=== PATIENT | female | born 1965 | race Caucasian/White ===

== ENCOUNTER 2022-11-30 11:23 | Outpatient (OUT) | payer OTHER, SELFPAY ==
[2022-11-30 12:08] LABS: Basophils Absolute Auto 0.1 10^3/uL (0.0-0.1); Basophils Percent Auto 1.2 % (0.2-2.0); Eosinophils Absolute Auto 0.1 10^3/uL (0.0-0.7); Eosinophils Percent Auto 2.8 % (0.9-7.0); Hematocrit 36.2 % (36.0-48.0); Hemoglobin 11.7 g/dL (12.0-16.0); Immature Granulocytes Abs Auto 0.01 10^3/uL (0.00-0.03); Immature Granulocytes Pct Auto 0.2 % (0.0-0.5); Lymphocytes Absolute Auto 1.4 10^3/uL (1.2-3.8); Lymphocytes Percent Auto 32.9 % (20.5-60.0); Mean Corpuscular HGB Conc 32.3 g/dL (29.9-35.2); Mean Corpuscular Hemoglobin 29.3 pg (26.7-34.0); Mean Corpuscular Volume 90.5 fL (81.0-99.0); Mean Platelet Volume 9.8 fL (9.5-13.5); Monocytes Absolute Auto 0.5 10^3/uL (0.3-0.8); Neutrophils Absolute Auto 2.2 10^3/uL (1.4-6.5); Neutrophils Percent Auto 50.9 % (43.0-75.0); Platelet Count 238 10^3/uL (150-450); Red Cell Distribution Width 14.1 % (11.0-15.0); White Blood Count 4.3 10^3/uL (4.0-11.0)
[2022-11-30 12:19] LABS: Estimated Average Glucose 111 mg/dL; Glycohemoglobin A1C 5.5 % (4.5-6.2)
[2022-11-30 12:57] LABS: Alanine Aminotransferase 15 U/L (14-59); Albumin Globulin Ratio 1.1; Albumin Level 3.8 g/dL (3.4-5.0); Alkaline Phosphatase 86 U/L (46-116); Anion Gap 11.6; Aspartate Amino Transferase 15 U/L (15-37); BUN Creatinine Ratio 16.1; Bilirubin Direct 0.1 mg/dL (0.0-0.2); Bilirubin Total 0.3 mg/dL (0.2-1.0); Carbon Dioxide 27.3 mmol/L (21.0-32.0); Chloride 99 mmol/L (98-107); Chol HDL Ratio 2.4; Cholesterol 187 mg/dL (<=200); Estimated GFR (African America >60 (>=60); Estimated GFR (Non-African Ame >60 (>=60); Globulin 3.5 g/dL; Glucose 102 mg/dL (74-106); HDL Cholesterol 78 mg/dL (40-60); Potassium 3.9 mmol/L (3.5-5.1); Sodium 134 mmol/L (136-145); Thyroid Stimulating Hormone 2.175 uIU/mL (0.358-3.740); Total Protein 7.3 g/dL (6.4-8.2); Triglycerides 87 mg/dL (<=150); VLDL CHOLESTEROL 17.4 mg/dL
== END 2022-11-30 11:24 | disposition home or self-care (01) ==
LOC: LAB 11:26
PROVIDERS: PCP Family Medicine; Visit Provider Family Medicine
DX: Z00.00 Encounter for general adult medical examination without abnormal findings (principal)
CPT/HCPCS: 36415; 80048; 80061; 80076; 83036; 84443; 85025

== ENCOUNTER 2023-02-21 09:16 | Outpatient (OUT) | payer OTHER, SELFPAY ==
--- NOTE | 2023-02-21 09:19 | MM_ITS ---
Patient: AMANDA OAKES Exam Date: 02/21/2023 : 1965 Gender:F Ordering : DR Eduardo Jones . Admission #: [id number] Family : Order #: [id number] CLICK HERE TO VIEW EXAM RADIOLOGY REPORT PROCEDURE: MM TOMOSYNTHESIS SCREENING BI COMPARISON: MG MAMM SCREEN 3D OCTAVIO CAD, 02/15/2022. MG MAMM SCREEN 3D OCTAVIO CAD, 02/12/2021. INDICATIONS: Screening Calculator Name NCI Breast Cancer Risk Assessment Tool 5 Year Breast Cancer Risk 1.00% Lifetime Breast Cancer Risk 5.50% Personal Breast Cancer No Personal Ovarian Cancer No Treatments None Family Cancers None LOCATION: [facility] BREAST COMPOSITION: Scattered areas fibroglandular density. FINDINGS: DIAGNOSTIC CATEGORY 1--NEGATIVE. NO CHANGE FROM COMPARISON ASSESSMENT. Scattered benign-appearing lymph nodes are present. RIGHT BREAST: No significant suspicious finding. LEFT BREAST: No significant suspicious finding. RECOMMENDATIONS: ROUTINE MAMMOGRAM AND CLINICAL EVALUATION IN 12 MONTHS. PLEASE NOTE: A NORMAL MAMMOGRAM DOES NOT EXCLUDE THE POSSIBILITY OF BREAST CANCER. A CLINICALLY SUSPICIOUS PALPABLE LUMP SHOULD BE BIOPSIED. Dictated by: Nas Robb MD on 02/21/2023 at 12:59 Approved by: Nas Robb MD on 02/21/2023 at 13:00
== END 2023-02-21 09:17 | disposition home or self-care (01) ==
LOC: MAMMO 09:16
PROVIDERS: PCP Family Medicine; Visit Provider Family Medicine
DX: Z12.31 Encounter for screening mammogram for malignant neoplasm of breast (principal)
CPT/HCPCS: 77063; 77067

== ENCOUNTER 2023-07-11 20:37 | Outpatient (REF) | payer OTHER, SELFPAY ==
[2023-07-15 11:10] LABS: Age Gdln ACOG Testing Note (.); HPV Aptima Negative (Negative); IGP, Aptima HPV, rfx 16/18,45 Note (.)
== END 2023-07-11 20:38 | disposition home or self-care (01) ==
LOC: LAB 20:37
PROVIDERS: PCP Family Medicine; Visit Provider Physician Assistant
DX: Z01.419 Encounter for gynecological examination (general) (routine) without abnormal findings (principal)
CPT/HCPCS: 87624; G0145

== ENCOUNTER 2023-07-14 09:36 | Outpatient (OUT) | payer OTHER, SELFPAY ==
--- NOTE | 2023-07-14 09:42 | XR_ITS ---
[facility] [place] [id number] Patient Name: AMANDA OAKES MRN: [id number] date: 1965 Sex: F Assigned Patient Location: [facility] Current Patient Location: [facility] Accession/Order Number: [id number] Exam Date: 07/14/2023 09:55 Report Date: 07/14/2023 10:13 At the request of: MATT ADAMS Procedure: XR DEXA axial skeleton EXAMINATION: XR DEXA axial skeleton HISTORY: postmenopausal state Z78.0 COMPARISON: No relevant comparison available. TECHNIQUE: Dual-energy X-ray absorptiometry (DXA) was performed. FINDINGS: SPINE ANALYSIS: Average bone mineral density is 1.031 g/cm2. T-score (standard deviation relative to young adult mean): -1.2 . HIP ANALYSIS: Lowest bone mineral density is within the left femoral neck, 0.771 g/cm2. T-score (standard deviation relative to young adult mean): -1.9 . XR/XR DEXA axial skeleton IMPRESSION: [employer] Classification: Osteopenia - Moderate Fracture Risk Electronically authenticated by: ALEAH LONDON Date: 07/14/2023 10:13
--- OUTSIDE RECORDS SUMMARY | 2023-07-14 09:45 | XMS_ITS | CCD ---
Author Name Unknown Address [address] [place] [address] Organization [facility] Care Team Providers Care Production Scheduler Name Role Phone STEVEN, DR JOSE Oconnell Admitting Unavailable NADERER, DR JOSE Oconnell Attending Unavailable NADERER, DR JOSE Oconnell Primary Care Unavailable Zieber, DR Chowdary Consulting Unavailable NADERER, DR JOSE Oconnell Consulting Unavailable NADERER, DR JOSE Oconnell Admitting Unavailable NADERER, DR JOSE Oconnell Attending Unavailable NADERER, DR JOSE Oconnell Primary Care Unavailable NADERER, DR JOSE Oconnell Consulting Unavailable NADERER, DR JOSE Oconnell Admitting Unavailable NADERER, DR JOSE Oconnell Attending Unavailable NADERER, DR JOSE Oconnell Primary Care Unavailable [place], DR Lovell Consulting Unavailable NADERER, DR JOSE Oconnell Consulting Unavailable BRANDAN, DR DOYLE Admitting Unavailable BRANDAN, DR DOYLE Attending Unavailable NADERER, DR JOSE Oconnell Primary Care Unavailable BRANDAN, DR DOYLE Consulting Unavailable NADERER, JOSE Primary Care Physician Pocubaldo, Nas Oconnell Admitting Unavailable Pocos, Nas Oconnell Referring Unavailable Pocos, Nas Oconnell Attending Unavailable Pocos, Nas Oconnell Referring Unavailable Pocos, Nas Oconnell Attending Unavailable Pocos, Nas Oconnell Admitting Unavailable ANGIE, MATT Attending Unavailable Allergies Allergy Classification Reported Allergen(s) Allergy Type Date of Onset Reaction(s) Facility (3 sources) Sulfamethoxazole / Trimethoprim; Translations: [sulfamethoxazole-tri methoprim] Drug Allergy Rash [facility] Medications Current Medications Medication Drug Class(es) Dates Sig (Normalized) Sig (Original) aspirin 81 mg delayed release oral tablet (1 source) Platelet Aggregation Inhibitor, Nonsteroidal Anti-inflammatory Drug Start: 08-17-2022 take 1 tablet by mouth twice daily aspirin 81 mg Oral EC Tab 81 mg = 1 tab(s), Oral, BID, # 60 tab(s), Refills(s) 0, Pharmacy: [facility], 158, cm, 07/29/22 12:08:00 EST, Height/Length Dosing, 58.6, kg, 07/29/22 12:08:00 EST, Weight Dosing Start Date: 08/17/22 Status: Ordered carvedilol 3.125 mg oral tablet (2 sources) alpha-Adrenergic Ciro, beta-Adrenergic Ciro Start: 07-29-2022 take 1 tablet by mouth twice daily carvedilol 3.125 mg Tab 3.125 mg = 1 tab(s), Oral, BID, Arrhythmia Start Date: 07/29/22 Status: Ordered cefadroxil 500 mg oral capsule (1 source) Cephalosporin Antibacterial Start: 08-17-2022 End: 08-19-2022 take 1 capsule by mouth every twelve hours cefadroxil 500 mg Cap 500 mg = 1 cap(s), Oral, q12hr, X 2 day(s), # 4 cap(s), Refills(s) 0, Pharmacy: [facility], 158, cm, 07/29/22 12:08:00 EST, Height/Length Dosing, 58.6, kg, 07/29/22 12:08:00 EST, Weight Dosing Start Date: 08/17/22 Stop Date: 08/19/22 Status: Ordered docusate sodium 100 mg oral capsule (1 source) Start: 08-17-2022 take 1 capsule by mouth twice daily as needed for constipation Colace 100 mg Cap 100 mg = 1 cap(s), Oral, BID, PRN for constipation, # 40 cap(s), Refills(s) 0, Pharmacy: [facility], 158, cm, 07/29/22 12:08:00 EST, Height/Length Dosing, 58.6, kg, 07/29/22 12:08:00 EST, Weight Dosing Start Date: 08/17/22 Status: Ordered meloxicam 15 mg oral tablet (2 sources) Nonsteroidal Anti-inflammatory Drug Start: 07-29-2022 take 1 tablet by mouth once daily meloxicam 15 mg Tab 15 mg = 1 tab(s), Oral, Daily, Pain Start Date: 07/29/22 Status: Ordered Multivitamin preparation (2 sources) Start: 07-29-2022 take 1 capsule by mouth once daily multivitamin 1 cap, Oral, Daily, Prophylaxis Start Date: 07/29/22 Status: Ordered oxyCODONE hydrochloride 5 mg oral tablet (1 source) Opioid Agonist Start: 08-17-2022 oxyCODONE 5 mg Tab 5 mg = 1 tab(s), Oral, As Directed, 1-2 po q4-6 hrs prn pain Dx: M16.11, Z96.641 Duration: 7days, # 40 tab(s), Refills(s) 0, Pharmacy: [facility], 158, cm, 07/29/22 12:08:00 EST, Height/Length Dosing, 58.6, kg, 07/29/22 12:08:00 ES... Start Date: 08/17/22 Status: Ordered Problems Active Problems Problem Classification Problem Date Documented Date Episodic/Chronic Cardiac dysrhythmias (2 sources) Cardiac arrhythmia 07-29-2022 Chronic Osteoarthritis (1 source) Unilateral primary osteoarthritis, right hip; Translations: [UNI PRIM OSTEOARTHRITIS RT HIP] Onset: 06-30-2022 Chronic Other non-traumatic joint disorders (4 sources) Pain in right hip; Translations: [PAIN IN RIGHT HIP] Onset: 06-28-2022 Episodic Past or Other Problems Problem Classification Problem Date Documented Date Episodic/Chronic Immunizations and screening for infectious disease (1 source) Encounter for screening for human papillomavirus (HPV); Translations: [ENC SCREENING HUMAN PAPILLOMAVIRUS] Onset: 03-23-2022 Episodic Other screening for suspected conditions (not mental disorders or infectious disease) (8 sources) Encounter for screening for malignant neoplasm of cervix; Translations: [Encounter for screening mammogram for malignant neoplasm of breast] Onset: 02-15-2022 Episodic Results Test Name Value Interpretation Reference Range Facility Operative Reporton Operative Report Patient: AMANDA OAKES Age: 57 years Sex: Female : 1965 Associated Diagnoses: None Author: Albaro Pink Jr, DO Postoperative Information Date/ Time: 08/17/2022 07:58:00 Preoperative Diagnosis: Acute postoperative pain.. Postoperative Diagnosis: Acute postoperative pain, per surgeon request. Procedure: Fascia iliaca nerve block. Anesthesia Method: Local, Monitored anesthesia care. Performed by: Albaro Pink Jr, DO Medications: Midazolam 2mg. Complications: None. Notes: The patient was interviewed and examined prior to the planned operation. Anesthesia options were discussed including fascia iliaca nerve block for postoperative analgesia. This discussion included a description of the procedure, risks and benefits, as well as alternatives to the block. The patients questions were addressed and the patient elected to proceed with the fascia iliaca nerve block. The patient was placed in the supine position and monitored with continuous pulse oximetry, non-invasive blood pressure, and electrocardiography. The upper thigh was prepped with ChloraPrep and sterilely draped. Anatomical landmarks were identified with ultrasonographic guidance. A 2 x 22 gauge Stimuplex needle was inserted without pain or paresthesias. . Following a negative attempted aspiration for blood, Ropivacaine 0.5% was slowly injected with to a total volume of _20_ cc. Periodic negative attempts at aspiration for blood were made as the local was injected. No pain or paresthesias were elicited with injection of the anesthetic. The patient tolerated the procedure well. The patient was then induced for general anesthesia and preparations for the proposed operation continued. Per surgeon request for post-op pian management.. [facility] Comment on above: Result Comment: Elec tronically Signed By: Albaro Pink Jr, DO\.br\Date and Time Signed: 08/21/22 09:09 EDT Progress Note-Physicianon Progress Note-Physician Patient: AMANDA OAKES Age: 57 years Sex: Female : 1965 Associated Diagnoses: None Author: Albaro Pink Jr, DO Postoperative Information Postoperative disposition: Postoperative disposition: To PACU. Optimetrix number: Optimetrix number [id number]. Anesthetic utilized: General. Health Status Allergies: Allergic Reactions (Selected) Severity Not Documented Bactrim- Rash. Physical Examination Vital Signs 08/17/2022 14:22 EDT Heart Rate Monitored 75 bpm SpO2 98 % 08/17/2022 14:21 EDT Systolic Blood Pressure 102 mmHg Diastolic Blood Pressure 70 mmHg Mean Arterial Pressure, Monitered 81 mmHg 08/17/2022 13:55 EDT Heart Rate Monitored 70 bpm Systolic Blood Pressure 100 mmHg Diastolic Blood Pressure 71 mmHg Blood Pressure Location Right arm Mean Arterial Pressure, Cuff 81 mmHg SpO2 99 % 08/17/2022 12:11 EDT Heart Rate Monitored 81 bpm SpO2 98 % 08/17/2022 12:11 EDT Respiratory Rate 16 br/min 08/17/2022 12:09 EDT Systolic Blood Pressure 91 mmHg Diastolic Blood Pressure 61 mmHg Mean Arterial Pressure, Monitered 71 mmHg 08/17/2022 12:09 EDT Temperature Temporal Artery 36.0 DegC LOW Pain Assessment: Controlled. General: Awake, Alert, Appropriate. Respiratory: Adequate air exchange. Cardiovascular: Stable, Normal peripheral perfusion. Neurological: Normal sensory function, Normal motor function. Assessment Anesthetic outcome No anesthetic complications noted. Adequate pain relief. able to void without difficulty, able to ambulate with assist, tolerating PO intake, no N/V. Review / Management Condition: Stable. Plan Transfer/Discharge: Transfer/Discharge Discharge when meets criteria ( To home ). [facility] Comment on above: Result Comment: Elec tronically Signed By: Albaro Pink Jr, DO\.br\Date and Time Signed: 08/21/22 09:10 EDT Progress Note-Physician Patient: AMANDA OAKES Age: 57 years Sex: Female : 1965 Associated Diagnoses: None Author: Albaro Pink Jr, DO Preoperative Information Time patient last ate or drank:=== (npo 8 hours) Anesthesia history: Patient history: No prior anesthesia problems. Re-evaluation prior to induction: Completed, Initial evaluation reviewed. Review of Systems Respiratory: No shortness of breath. Cardiovascular: No chest pain. Hematology/Lymphatic s: No bruising tendency, No bleeding tendency. Health Status Allergies: Allergic Reactions (All) Severity Not Documented Bactrim- Rash. Current medications: (Selected) Inpatient Medications Ordered Lactated Ringers IV Sepideh 1000 mL 1,000 mL: 1,000 mL, IV, 150 mL/hr, Routine, Start date 08/17/22 6:00:00 EDT, 6.7 hour(s), Total volume (mL): 1,000, 58.6 kg, 1.6, m2 Lactated Ringers IV Sepideh 1000 mL 1,000 mL: 1,000 mL, IV, 80 mL/hr, Routine, Start date 08/17/22 10:15:00 EDT, 12.5 hour(s), Total volume (mL): 1,000, 58.6 kg, 1.6, m2 Nozin 62% Bottle - POSTOP: 6 drop(s), Soln-Nasal, Nasal, BID, Routine, Start date 08/17/22 21:00:00 EDT Pantoprazole [address] Tab: 40 mg = 1 tab(s), Tab-DR, Oral, Daily, Routine, Start date 08/18/22 9:00:00 EDT, 08/17/22 10:15:00 EDT acetaminophen 325 mg Tab: 650 mg = 2 tab(s), Tab, Oral, q6hr for 3 dose(s), Stop date 08/18/22 4:59:00 EDT, Routine, Start date 08/17/22 11:00:00 EDT, 08/17/22 10:15:00 EDT ascorbic acid 500 mg Tab: 500 mg = 1 tab(s), Tab, Oral, BIDWM, Routine, Start date 08/17/22 17:00:00 EDT, 08/17/22 10:15:00 EDT bisacodyl 5 mg Oral EC Tab: 10 mg = 2 tab(s), Tab-EC, Oral, Once PRN Constipation, Routine, Start date 08/17/22 10:15:00 EDT, 08/17/22 10:15:00 EDT carvedilol 3.125 mg Tab: 3.125 mg = 1 tab(s), Tab, Oral, BID, Routine, Start date 08/17/22 21:00:00 EDT cefazolin additive + Sodium Chloride 0.9% intravenous solution 50 mL: 2 gram = 1 EA, IV Piggyback, q8hr for 2 dose(s), Stop date 08/18/22 2:59:00 EDT, Routine, Start date 08/17/22 11:00:00 EDT, 100 mL/hr, Infuse over 30 minute(s), 08/17/22 10:15:00 EDT cefazolin additive + Sodium Chloride 0.9% intravenous solution 50 mL: 2 gram = 1 EA, Powder-Inj, IV Piggyback, PREOP, Routine, Start date 08/17/22 6:00:00 EDT, 100 mL/hr, Infuse over 30 minute(s) docusate sodium 100 mg Cap: 100 mg = 1 cap(s), Cap, Oral, BID PRN Constipation, Routine, Start date 08/17/22 10:15:00 EDT, 08/17/22 10:15:00 EDT ferrous sulfate 325 mg Tab: 325 mg = 1 tab(s), Tab, Oral, BIDWM, Routine, Start date 08/17/22 17:00:00 EDT, 08/17/22 10:15:00 EDT magnesium hydroxide 8% Oral Susp 30 mL: 30 mL, Susp-Oral, Oral, BID PRN Constipation, Routine, Start date 08/17/22 10:15:00 EDT ondansetron 4 mg/2 mL Inj: 4 mg = 2 mL, Injection, IV Push, q6hr PRN Nausea/Vomiting, Routine, Start date 08/17/22 10:15:00 EDT, 08/17/22 10:15:00 EDT oxyCODONE 5 mg Tab: 10 mg = 2 tab(s), Tab, Oral, q4hr PRN Pain 8-10 for 5 day(s), Stop date 08/22/22 10:14:00 EDT, Routine, Start date 08/17/22 10:15:00 EDT, 08/17/22 10:15:00 EDT oxyCODONE 5 mg Tab: 5 mg = 1 tab(s), Tab, Oral, q4hr PRN Pain for 5 day(s), Stop date 08/22/22 10:14:00 EDT, Routine, Start date 08/17/22 10:15:00 EDT, 08/17/22 10:15:00 EDT Prescriptions Prescribed Colace 100 mg Cap: 100 mg = 1 cap(s), Oral, BID, PRN for constipation, # 40 cap(s), Refills(s) 0, Pharmacy: [facility], 158, cm, 07/29/22 12:08:00 EST, Height/Length Dosing, 58.6, kg, 07/29/22 12:08:00 EST, Weight Dosing aspirin 81 mg Oral EC Tab: 81 mg = 1 tab(s), Oral, BID, # 60 tab(s), Refills(s) 0, Pharmacy: [facility], 158, cm, 07/29/22 12:08:00 EST, Height/Length Dosing, 58.6, kg, 07/29/22 12:08:00 EST, Weight Dosing cefadroxil 500 mg Cap: 500 mg = 1 cap(s), Oral, q12hr, X 2 day(s), # 4 cap(s), Refills(s) 0, Pharmacy: [facility], 158, cm, 07/29/22 12:08:00 EST, Height/Length Dosing, 58.6, kg, 07/29/22 12:08:00 EST, Weight Dosing oxyCODONE 5 mg Tab: 5 mg = 1 tab(s), Oral, As Directed, 1-2 po q4-6 hrs prn pain Dx: M16.11, Z96.641 Duration: 7days, # 40 tab(s), Refills(s) 0, Pharmacy: [facility], 158, cm, 07/29/22 12:08:00 EST, Height/Length Dosing, 58.6, kg, 07/29/22 12:08:00 ES... Documented Medications Documented carvedilol 3.125 mg Tab: 3.125 mg = 1 tab(s), Oral, BID, Arrhythmia meloxicam 15 mg Tab: 15 mg = 1 tab(s), Oral, Daily, Pain multivitamin: 1 cap, Oral, Daily, Prophylaxis Problem list: All Problems Arrhythmia / SNOMED CT 4902093341 / Confirmed Histories Past Medical History: No active or resolved past medical history items have been selected or recorded. Family History: No family history items have been selected or recorded. Procedure history: delivery ([id number]). Operation on placenta to removal ([id number]). Social History Social & Psychosocial Habits Alcohol 07/29/2022 Risk Assessment: Low Risk 07/29/2022 Use: Current Type: Wine Frequency: 1-2 times per month Substance Ab (more content not included)... [facility] Comment on above: Result Comment: Elec tronically Signed By: Albaro Pink Jr, DO\.br\Date and Time Signed: 08/21/22 09:09 EDT IntraOperative Documentson 0 08-20-2022 IntraOperative Documents [id number] [facility] Coding Summary.on 08-19-2022 Coding Summary. CD:[id number] Ww+PGhlYWQ+UJ4SJIMhG 89kvBOcaL3xM9SCLUyDW ywgQVBQTElOSyIgbmFtZ L1rcYDzAPDc IC8+KW6qJVXtFokkzYXw h3X6sNZ0F59cuu5jAPuw eTK4RRCxPsNjiqree3af lQn8ZUvzKdvfMaEh RMWoxA29NCZ0cE00Gu88 yWAltRJqk6kyoCp6AiCa FMVpMPD5pAzbYNeic0Tp ZWLlL12rgVUop6C8 IGNvbGxhcHNlOyBlbXB0 cO4eSJxytxiqa1jppyyv Fsc4ke76lBJjh7S8qKV7 W5NmzkW1UZCyvGFm YordcXQYsF7ydrjbw3hp ejhyUsOlFKFeSXn1ZVq1 QBTpePfxOoVpCD23CSG0 DUUloaGtW7ZuBMZc fKrrFkF6o0U8Lb0EF7OW XexhX8KGCCIBBJbjyMV+ SB85sy94R9GsBnnqVkq3 AIXvEEA9uKA2xA6h GPChKOjeu4W5aBQ7Q3Bj bpRkcm1kj9czZJJjNGib W25dwACgc9B3OPEznUH5 PUXdyKagNxKeiG78 Oyc+JYQfcQcsr7EiNitw x9gfd7gcgWj5SevqYGSx hmTsmPdfEMR8p8LpNa9p FBVsgBF7sXK2lY2u JpQxYcJ4JUcbU249PtIw lJIuMvroT48yP3JzgIH+ ILEyYon0DDIahQlxNV3f H0WlTHIvxrtzeZAd mQscNQ2pNEAlnkgkKPWe zE4gDHReJ5u7YjJpKtM2 PDipT0NoDFDltqdsMm81 hL2mAhPlIyK2PTvx U5DqaiM3DQEyaQOeABdf HOW3H87sq8J3TKXaGUDi GRW4gQE2dQ3dwTxulrdy bGVmdDsgdmVydGlj PUhoXTsdY065AZOzvThx PkNvZGluZyBEYXRlOiAg MDMvMzAvMjAyMzwvdGQ+ GOSlOTM5eIhiKQVe zKZrSIodBz0svWvwpRby DO9dEXUnecdqHMFhvS0v FLUhhQWbxSetIF6jHNDw teugg188UmGpJHX7 DMIpsCBwK7RlzP1wPuNt DRLsYEUyL0YdgYVuLXgu Y939HBojXhI6NTDfgqVy U6OuISYjpCqoZgB6 i1E7Nd8Rc9HlflxfH8Fe mEQtSaAoOnldSQd1H7Wg PjwvdHI+PD70OGBqOC19 NAq3VYJ7pNimZWlj XPFpN8CioI8pWvIjODNj ZGRkOyc+PHRhYmxlIHdp ZHRoPScxMDAlJyBzdHls QN2pAn0gYFMjQFQa bApynLNuMeJgw8xtIAQu QLffSV5xfVucI2VsdLP5 RORht4h0Cb79S66dZ5Na dXA+OZKcyFN4zPH7 kZ4rUqGvGhU4LEzgK473 UwJpjDBgXuogt1xdj9wb kIj1HiZ7WCSplfUyfCli ACU2j8MkRd97E04e IHdpZHRoPSIxNSUiIHZh tWhhvb9vnI7pUe6+PGNv vNW4wSA1oA5rNePyQiW7 UWuiB649CsXxrYUj Dkxyy5rjc5oxdDw0JbAx JHMmqoGtvSdnHWX7y5Ug Dd44A1ZpnCvih5UvTey8 jx59nDSjg6E3fAZ7 J5StXAAyppsnaLZmqWbt UR6qARLlgyjuVDSvcR5k FTQlX0y4KhBgFxW6GMjm A2YkcvS7PTAnxIAy QEHdaAHKoI1wgamzo3ew ismaLsOfIVNyAGs0XXz3 ZSLmvZilTbOcQAB0IzD1 MYE0wAJzkA2peSbi eawxmV4pYez+TBX5yVFv eRUDEI5wIuurxRM+PHRk GOT2wDrbBYviSIBjhC0l VXCeP3g2HlObFhA5 DXkyT2CqybB7SQWixYRo XCKenMFVnK6vqttyq5bm jwojDxGhSGPxORk3QFb7 LWFsaWduOiBsZWZ0 DxS9JIO5fLYarL7pdUes crddlD5ySiy+QmlydGgg YSX6MFb2M9IyLcg5GUZk dKsmWT4tcWBpONim Kl3kcZbtoQtwIL8wXTTb ttvpf139RrErn9jiVLJp kYNvAKcuOPF2O96me1W2 EFNiQTGlAJY5bQD1 rY0qoNrlhcyyvVUnxQcs qiJiaVdfREzyOYpcN206 LVOoiKzbRqFvQCv1H8Rd Cca4GEIeeElmMA6w hUEuHOsvNg7kbJxelYdp OG8mFWXtbkkof291TdZy x0qgOJFdsDMiFAsgEVD5 Y02vj9I1PVYjUVOu QBM1oAW1gS7peGcrtode bGVmdDsgdmVydGljYWwt WCvlZ103GULzyLxyDkKl xAd8D9WjRpv4YSGq qPseGN0hzMXoWHsoAv2y xDplpCwvGY2xFNRqlqzy l314GrNnw2fxEYZbzZUd VCjcGZE7W76th7C8 UVEgPMBnLTY7mDG4wV0d bGlnbjogbGVmdDsgdmVy sKrpJVftRYaoB570VGUu cDsnPlBhdGllbnQg QRdaLCt0V0XhOzqbjCA+ RK51LIPcAX96tGPqcCQd n9yorDw7VdMrCOIcREX2 pPznAFwgr7OaMFFu Y75trVWar3W1SSXjfCid aRAnGqMlaAJ6kY0lDHkv pfthx2wdrmylKsqjh8wt bh94dF25O11oBSgt ZHRoPSIzMCUiIHZhbGln rg2nwZ1uGl0+PGNvbCB3 eVC2zJ4oWPRqZjO5NIak Q446RaFvpTCtEtqs w2gie1tgjBh1PeF5APFz dcFmkIwpEJE4k7JkYg68 I11jNYpyFEExZOAaZWJm NWUozCxftu0nuE2x Ii8+KHWefJF8eGD4yU4s OaDkYiC0SOeoB631TbPz gJSsRrvwF38gO9XdfFN+ IRVdHnr0TGUjlDus PV8nmRCxSPeyAi2tKVP7 KdNcTtLfSAemC0NoYMMt adqcxyajhQT0PWKqPIHf dZ79Wr5mcHqmNRRz bHRKqS8yhwvod8yigxwy UmKzRSEpDRx6PUt2JYYf oJtfZgQuPUB4WiL6IMW6 fMTkkY8qmQtoywei jW0iL6AoRVAvdkvyTz28 nK5sKaOtPtC2REddJyu+ Q3YGY8QKAZOOKdOUZXg3 S2KhCmx1ONHdkRuf NV4rlXVuEFioGk9qhYnu bIyaZA5pKYPjfmsiNWOw bL5sZPVvsPSphSxoUX3k YCDwmqdox734ZrUj QSC0SMGziNFmO6LlmA0k KcIqDJOdLJKeJ6AxiQZw CQmxH954VWnyCoS7EFJm hzFeV8YuGMSxyIdc XwG1o1T5Qg1pAK6lMN3i ECP2SO77ND94sPCqr7Z9 uLP8X5TgPZUpckuuycbi tFJ0IYArSKAcbL27 yDDaNBbfZp8pg0B5y539 BLAvNCKntX45Hp4qnSkq DZMynZZOsH5erfwds4rr cjogIzAwMDAwMDt0 WWk1XODqhWhkLzChWYN0 LoH7ZIO5eYAldU5oiOhm qkxpuQ2lCoi+NTggWWVh oqU7K6NeZhi8BEHn cGsmER2tmXPnMSfwNp8g zHywfWgeQJ5fPXWchbpc PPBpeM8pPVTlgETtcAsm QD1qARBzvkiju533 OrEmMGM5EDCkqJAvC5Tb bP9kVvUjZGZpNEKzO3Aj aLCzLVswX437XEbtMiD6 YTTnybGtR5FvXMSp sVkuEtS1n0O1Px3AFL9x wHB9A6UgVnz7RWQnlDlm AM7sqVDlWOiiNb1teFpz gWgxOM7qJSQrhcnk WOCwlA3lOAFlaSQpbGvj DY4dDRUfhbqhe714WmUa BIX9GSKjhFSdB9JkoT1f KvXyBPIgZPKbE2Vy nLOgMJdoM721EHmqCmZ3 EMEyksWyM7QbVPBazJcq MsD6r9O0Ch1CcOB8xHI2 n4Q5N5IyzGHsCHU8 HPM6xjerkxq8N0RuAeci dHI+LH97SNMmJD65kQTq wQHpc7axrRf8LwSgRYYv WYY4fWqhYTeua2Sq DOYpL59nrXAbr0C9TSKz rGcvoLUmGkSsbFU8qV5j OSnhmzfnp2memrzwUdol l3ovrd04gO48E56g IHdpZHRoPSIzMCUiIHZh pSpwlm8fzH7tOa4+PGNv aBD4lSI8tL9vHpMwBfE3 YExeS437EtHedXEs Wqvqe5wjm3mteVu0KrRh KNMnqjEbzZdrQMJ4d4Li Ml01V94mVNauUHGkBIAw HWDjFQBptXiwvi8z nU2vAt8+BM5pn0oscr17 gV72xYW+RQEsXVX1jGkh TZtgRPWpmV9uLJxoJaT7 OISkYgMeoC63oIGi MWqcCr6xaEeqaAhaLO8g SMBvyuwqx637HpWvt2yk YRTuzYEhYVuwJBP5Q19j c2P2NMNoGQRxOFL1 dOT5tZ0sePxsjfinxHLf dDsgdmVydGljYWwtYWxp P921ZNKypRnmSvZunDYo D5njrnFBCG9oEmgq dGQ+HITiCXY8sWxbNLsc ZYEeeA3dOLQfR6w9HvNr DtE3RNabL9BlshM1KOHy iRNiVSTrlKKVkQ6o fqzys5hsqskuWyZlNGNn VWn5DNp7JIXqzVcpKwXb ZPC0InP7ONX8cKKboK5t sUphpzwmmK3vUpu+ RklOOjwvdGQ+PHRkIHN0 dLuxSPluWQZrtN1nGIWd C1s5YwDfLzM6GEqsF2Pl slM5UBJtgPJnLEIg lPKVrI8vmszfm6jpifdw StUjGWFrBNx3TWp1KTPi eZkqXcLkWRT6WmJ5SHP7 vYFeuQ8niJoxagif wK1eZnw+TVJOOjwvdGQ+ FPPqWYQ4xJbgZAgrJSCz cX0nHACpR4f5BrArKxN9 YRtaZ7EjvbG7SZRn aBLzBNSwxTNLpY7mraek k0uauoszBaCjMPErXLh1 NUm8LQBlaHquFmGtAWV6 DuK6OIO2hWEieC8b yGhmikdciM6gMrc+UGF5 EGN6KK52TI03Y0WdMjwu dGFibGU+PHRhYmxlIHdp ZHRoPScxMDAlJyBz eAfuGP7c (more content not included)... [facility] Main OR Intraoperative Recor don 08-19-2022 Main OR Intraoperative Record IntraOp Document Type FT Summary Primary Physician: Nas Hebert DO Finalized Date/Time: 08/19/22 10:54:53 Pt. Name: MEG OAKESY /Sex: 1965 Female Med Rec #: [id number] Physician: Nas Hebert DO Financial #: [id number] Pt. Type: A Room/Bed: Admit/Disch: 08/17/22 05:40:33 - 08/17/22 15:55:00 Institution: Case Times FT Entry 1 Patient Times In Room 08/17/22 08:42:00 Out Room 08/17/22 11:20:00 Procedure Times Start 08/17/22 09:21:00 Stop 08/17/22 11:15:00 Anesthesia Times Start 08/17/22 08:42:00 Stop 08/17/22 11:20:00 Block Timeout w08/17/22 07:58:00 Anesthesia Last Modified By: Екатерина GREGORIO, [facility] 08/17/22 11:41:54 General Comments: Unilateral right hip nerve block done by Dr. Pink at [id number] with JG Pierre assisting, HR 66bpm, SpO2 99% on room air, wheeled back to ASU at 0815, verbal reports given to ASU RN. JG Verde Wheeled to OR room, assisted to self-sitting position, spinal done by OLIVIER Clarke at 0851, position back to supine and to the fracture table for surgery. JG Verde 08/19/22 Chart opened to review and send charges [facility] Case Attendance FT Entry 1 Entry 2 Entry 3 Case Attendee Lis AGUAYO, Darell Hebert DO, Nas Roy RN, Beth Velasquez Role Performed REGIONAL ACCOUNT DIRECTOR Surgeon - Primary Staff - Other Time In 08/17/22 08:42:00 08/17/22 08:42:00 08/17/22 08:42:00 Time Out 08/17/22 11:20:00 08/17/22 11:02:00 08/17/22 11:20:00 Procedure HIP TOTAL ANTERIOR HIP TOTAL ANTERIOR HIP TOTAL ANTERIOR ROBOT ROBOT ROBOT ARTHROPLASTY(Right) ARTHROPLASTY(Right) ARTHROPLASTY(Right) Comments Dr. Pink supervising 2nd scrub Last Modified By: Екатерина RN, Dash Willams RN, Dash Dukes RN 08/17/22 11:41:57 08/17/22 11:41:57 08/17/22 11:41:57 Entry 4 Entry 5 Entry 6 Case Attendee Екатерина RN, Dash Arrington RN, Adam Hedrick Role Performed Verifying Specialist - Primary Verifying Specialist - Primary Scrub - Primary Time In 08/17/22 09:05:00 08/17/22 08:42:00 08/17/22 08:42:00 Time Out 08/17/22 11:20:00 08/17/22 11:20:00 08/17/22 11:20:00 Procedure HIP TOTAL ANTERIOR HIP TOTAL ANTERIOR HIP TOTAL ANTERIOR ROBOT ROBOT ROBOT ARTHROPLASTY(Right) ARTHROPLASTY(Right) ARTHROPLASTY(Right) Comments Last Modified By: Екатерина RN, Dash Willams RN, Dash Dukes RN 08/17/22 11:41:57 08/17/22 11:41:57 08/17/22 11:41:57 Entry 7 Entry 8 Entry 9 Case Attendee Gregg RN, Byron Marrero SAMPLE COORDINATOR, Stacia Lane RN, Sun Oconnell Role Performed Staff - Other SAMPLE COORDINATOR/SA Staff - Other Time In 08/17/22 08:42:00 08/17/22 08:42:00 08/17/22 08:42:00 Time Out 08/17/22 11:20:00 08/17/22 11:20:00 08/17/22 09:10:00 Procedure HIP TOTAL ANTERIOR HIP TOTAL ANTERIOR HIP TOTAL ANTERIOR ROBOT ROBOT ROBOT ARTHROPLASTY(Right) ARTHROPLASTY(Right) ARTHROPLASTY(Right) Comments 3rd scrub RN assisting with the blocks and positioning Last Modified By: Екатерина RN, Dash Willams RN, Dash Willams RN, Dash Oconnell 08/17/22 11:41:57 08/17/22 11:41:57 08/17/22 11:41:57 Entry 10 Entry 11 Case Attendee Michelle Ro Chelsea R Role Performed Metal Hanger Metal Hanger Time In 08/17/22 08:50:00 08/17/22 10:29:00 Time Out 08/17/22 09:20:00 08/17/22 10:49:00 Procedure HIP TOTAL ANTERIOR HIP TOTAL ANTERIOR ROBOT ROBOT ARTHROPLASTY(Right) ARTHROPLASTY(Right) Comments Last Modified By: Екатерина RN, Dash Willams RN, Dash Oconnell 08/17/22 11:41:57 08/17/22 11:41:57 General Comments: Kelechi Hand and Eve rowell, also in attendance. JG Verdelinux admin Protocols FT Pre-Care Text: Implements protective measures prior to operative or invasive procedure, confirms identity before the operative or invasive procedure, verifies operative procedure, surgical site, and laterality Entry 1 Procedure(s) HIP TOTAL ANTERIOR Patient Identity Birthday, Blood Band, ROBOT Verified (select at ID Band Check, Patient ARTHROPLASTY(Right) least 2): Participation Consents / H and P Anesthesia Consent, Operative Site Present Verified HandP, Surgery/Procedure Marking Verified Consent, Transfusion Consent Surgical Site Yes Laterality Verified Yes Verified Procedure Verified Yes Correct Patient Yes Position Verified Availability Equipment, Implant, Prep Dry Yes Verified (If Medication, X-ray Applicable) PreOp Antibiotic Yes Time Out Darell Hays CRNA, Pocos DO, David A, Hord RN, Екатерина Campos RN, Murphy Tan RN, Ellen Aguila Kendall R, Krupp RN, Rupal Michele CST, Stacia Myers Time Out Complete 08/17/22 08:20:00 Outcomes Met? Yes Last Modified By: Dash Willams RN 08/17/22 09:52:02 Post-Care Text: The patient is free from signs and symptoms of injury caused by extraneous objects Allergy Information FT Pre-Care Text: Verifies allergies Entry 1 Allergies Reviewed? Yes Allergies Reviewed Self/Patient With Outcomes Met? Yes (more content not included)... [facility] [place] 08-18-2022 Blood Bank [place]ip [id number] #[id number] [facility] Consent for Anesthesiaon Consent for Anesthesia [id number] 2#1.00CD:127 [facility] Discharge Instructionson Discharge Instructions [id number] 8#1.00CD:127 [facility] IntraOperative Documentson 0 08-18-2022 IntraOperative Documents [id number] 4#1.00CD:127 [facility] IntraOperative Documents [id number] 0#1.00CD:127 [facility] Operative Reporton Operative Report SURGERY DATE: 08/17/2022 WHEEL ASSEMBLER: Stacia Marrero CST PREOPERATIVE DIAGNOSIS: Right hip osteoarthritis POSTOPERATIVE DIAGNOSIS: Right hip osteoarthritis OPERATION: Right hip robotic-assist total hip arthroplasty ANESTHESIA: Spinal/fascia iliaca block ANESTHESIOLOGIST: Darell Hays CRNA ESTIMATED BLOOD LOSS: 250 mL INTRAVENOUS FLUIDS/URINARY OUTPUT: Please see operative record SPECIMEN: Bone and soft tissue IMPLANT: Eve Total Hip with a size 50 Trident II Cluster cup; two 6.5 mm screws measuring 25 and 20 mm respectively; a 50 x 32 neutral X3 polyethylene liner; on the femoral side, a size 3 127-degree Accolade II with a 32 +4 Biolox femoral head HISTORY/OPERATIVE INDICATIONS: The patient is a 57-year-old white female who presents complaining of right hip pain and difficulty. The patient has had the usual course of conservative care including oral anti-inflammation, analgesia with Tylenol, supportive care and rest with the use of an assistive device as needed. The patient has failed this. With this and how the pain does effect quality of life, the patient does appear clinically indicated/cost effective for total hip arthroplasty. INTRAOPERATIVE PATHOLOGY: Upon dissection of the right hip from the standard direct anterior approach, there is noted to be severe arthrosis. Total hip arthroplasty is done with christianity of limb stability, alignment and length. The patient did tolerate the procedure well under spinal anesthetic. The [employer] robotic platform was helpful. The fascia iliaca block is requested per myself to aid in intra, perioperative, postoperative pain management. It does appear to be clinically indicated/cost effective. PROCEDURE: After informed consent is obtained the risks, complications and reasonable expectations of the procedure had been discussed. The patient is taken to the Operative Suite, placed on the operating room table in supine position. At this point, the patient is given a spinal anesthetic. A time-out procedure is performed, site verification verified. The patient is then appropriately positioned on the Braxton table. The boots are placed in the standard fashion to secure the patient to the table. After adequate positioning, the operative side arm is folded over the chest to allow access with the robotic platform. After adequate positioning, the hips are sterilely prepped and draped in the usual surgical fashion. This does include the contralateral anterior hip area up into the pelvic area. After sterile prep and drape, the focus is then to the array placement on the contralateral right hip. A total of three stab incisions are made at the appropriate level using the guide. The pins are placed; first the first and third pins followed by the second pin in line. The guide for the array is then placed overtop, secured and the array identified by the camera. At this point, the focus is to the operative hip. The direct anterior approach is utilized. Skin incision is made. The tensor fascia is split. Dissection is carried then medialward. The cross vasculature of the ascending branches are then identified and cauterized. This did expose the pre-capsular fat. The capsule layer is identified. A minimal amount of the reflected head of the rectus femoris is elevated. At this point, the capsule is opened longitudinally and then at the inferior aspect in a T fashion, the limbs of the capsule are excised. The superior limb is marked with a suture for later excision. The femoral neck is exposed. The approximate site of cut is appropriately made. At this point, the pubofemoral ligament is released as well for ease of exposure. The femoral checkpoint is placed in the greater trochanteric area. At this point, the hip is externally rotated approximately 20 degrees and traction applied. The corkscrew for head removal is placed within the femoral head. The femoral neck cut is made. The head is removed. The acetabulum is then exposed. The acetabular labrum, capsule are further removed. After adequate exposure of the acetabulum, the pelvic checkpoint is placed. The femoral checkpoint had been registered. The pelvic checkpoint is thus registered followed by registering of the pelvic array. This is then registered with fine articular points followed by fine rim points. The gross points are then identified and verified. This does include the anterior inferior aspects of the acetabulum for verification. At this point, the reamer is brought in. This is appropriately set and the reaming is performed in the standard fashion. Adequate reaming is achieved. The area is thoroughly irrigated. The decision on the cup is made. At this point, the 50 cup is placed on the robotic arm and impacted with the guidance accordingly. Adequate positioning is verified. The drill holes are drilled, measured for length and two 6.5 mm screws were placed measuring 25 and 20 mm respectively. At this point, the hip is externally rotated 90 degrees and the capsular releases are performed for a femoral janis (more content not included)... [facility] Comment on above: Result Comment: Elec tronically Signed By: Nas Hebert DO\raciel\Date and Time Signed: 08/18/22 07:04 EDT Preoperative Documentson Preoperative Documents [id number] 2#1.00CD:127 [facility] XR Hip 1 View Right + Pelvis on 08-18-2022 XR Hip 1 View Right + Pelvis Exam Date/Time: 08/17/2022 11:38 EDT Reason for Exam: Post Op Report EXAMINATION: XR Hip 1 View Right + Pelvis, 08/17/2022 11:25 AM CLINICAL HISTORY: Post Op TECHNIQUE: PA and lateral views COMPARISON: Hip x-rays from 06/28/2022 FINDINGS: Status post complete right hip replacement. The prostheses are in anatomic alignment. Expected postoperative soft tissue edema and subcutaneous air are noted. IMPRESSION: Status post complete right hip replacement. Ordering Provider: Nas Hebert FINAL REPORT Dictated: 08/18/2022 4:32 pm Juventino Wiseman MD, V. Signed (Electronic Signature): 08/18/2022 4:32 pm Signed by: Juventino Wiseman MD, V. Transcribed by: ANSHU Technologist: SAKINA Technical Comments Radiation Dose: Ka,r in mGy = na DAP = na [facility] ABO/Rhon 08-17-2022 ABO/Rh Negative Invalid [facility] Comment on above: Performed By: #### 2 [id number], [id number], [id number], [id number] ####[facility] [address] [place] [address] ABO/Rh History Checkon 08-17 ABO/Rh History Check Verified Hx Blood Type [facility] Comment on above: Performed By: #### 2 [id number], [id number], [id number] ####[facility] [address] [place] [address] ABSCon 08-17-2022 ABSC Gel Interp Negative Normal [facility] Comment on above: Performed By: #### 2 [id number], [id number], [id number], [id number] ####[facility] [address] [place] [address] BLOOD BANKOrdered By: Denver Wren on 08-17-2022 ABO/Rh Interp Negative Invalid Interpretation Code [facility] [place] Subsection ABSC Gel Interp Negative (08/17/22 6:30 AM) Normal [facility] [place] Sub[place] Blood Bank ID#on 08-17-2022 BBID# [id number] Invalid Interpretation Code [facility] Comment on above: Performed By: #### 2 [id number], [id number], [id number], [id number] ####[facility] [address] [place] [address] Consent for Treatmenton 07-22 Consent for Treatment [id number] #1.00CD:127 [facility] H&P Updateon 08-17-2022 H&P Update [id number] #1.00CD:127 [facility] H&P Update [id number] #1.00CD:127 [facility] Comment on above: Other Comment: NEED A GOLD FORM Inpatient Patient Summaryon 08-17-2022 Inpatient Patient Summary [facility] [address] [place], [place] [address] [facility] Clinical Discharge Instructions PERSON INFORMATION Name: AMANDA OAKES PHYSICIANS Admitting Physician: Nas Hebert DO Attending Physician: Nas Hebert DO PCP: STEVEN CHAVARRIA, JOSE Discharge Diagnosis: Comment: PATIENT EDUCATION INFORMATION Instructions: How to Use an Incentive Spirometer; Post Op Patient Instructions - FT (CUSTOM); [place] - Hip Replacement Arthroplasty, Revised 07/14/11. (Custom) Medication Leaflets: Follow up: With: Address: When: Nas Hebert [address] [place] [address] [facility] (1) 09/17/2022 8:30 AM Comments: Call for any problems. Keep scheduled appointment MEDICATION LIST New Medic[facility]72, [address] [place], [place] [id number], [phone] aspirin (aspirin 81 mg Oral EC Tab) 1 Tablets By Mouth 2 times a day. Refills: 0. cefadroxil (cefadroxil 500 mg Cap) 1 Capsules By Mouth every 12 hours for 2 Days. Refills: 0. docusate (Colace 100 mg Cap) 1 Capsules By Mouth 2 times a day as needed for constipation. Refills: 0. oxycodone (oxyCODONE 5 mg Tab) 1 Tablets By Mouth As Directed. 1-2 po q4-6 hrs prn pain Dx: M16.11, Z96.641 Duration: 7days. Refills: 0. Medications to Continue with No Changes Other Medications carvedilol (carvedilol 3.125 mg Tab) 1 Tablets By Mouth 2 times a day. Arrhythmia. meloxicam (meloxicam 15 mg Tab) 1 Tablets By Mouth every day. multivitamin 1 cap By Mouth every day. Comment: Epifanio Karri [facility] Main OR PACU I Recordon 07-22 Main OR PACU I Record PACU Phase I Document Type FT Summary Primary Physician: Nas Hebert DO Finalized Date/Time: 08/17/22 13:06:58 Pt. Name: MEG OAKESRoyce Sullivan/Sex: 1965 Female Med Rec #: [id number] Physician: Nas Hebert DO Financial #: [id number] Pt. Type: A Room/Bed: 09/20 Admit/Disch: 08/17/22 05:40:33 - Institution: Case Times PACU I FT Pre-Care Text: Identifies barriers to communication and implements measures to provide psychological support Develops individualized plan of care, and ensures continuity of care Maintains patient's dignity and privacy, and maintains patient confidentiality Identifies and reports philosophical, cultural, and spiritual beliefs and values Identifies individual values and wishes concerning care Implements aseptic technique, and administers prescribed antibiotic therapy and immunizing agents as ordered Evaluates postoperative tissue perfusion Implements thermoregulation measures, and monitors body temperature Evaluates postoperative respiratory status Evaluates postoperative cardiac status Evaluates postoperative neurological status Assesses pain control, collaborated in initiating patient-controlled analgesia and implements alternative methods of pain control Verifies allergies, administers prescribed medications and solutions, evaluates response to medications Entry 1 In PACU I 08/17/22 11:24:00 Discharge from PACU 08/17/22 12:05:00 I Outcomes Met? Yes Last Modified By: Leni Clark RN 08/17/22 13:06:39 Post-Care Text: The patient demonstrates knowledge of the expected response to the operative or invasive procedure The patient's care is consistent with the individualized perioperative plan of care The patient's right to privacy is maintained The patient's value system, lifestyle, ethnicity, and culture are considered, respected, and incorporated into the perioperative plan of care The patient participates in decisions affecting his or her perioperative plan of care The patient is free from signs and symptoms of infection The patient has wound/tissue perfusion consistent with or improved from baseline levels established preoperatively The patient is at or returning to normothermia at the conclusion of the immediate postoperative period The patient's respiratory function is consistent with or improved from baseline levels established preoperatively The patient's cardiovascular status is consistent with or improved from baseline levels established preoperatively The patient's cardiovascular status is consistent with or improved from baseline levels established preoperatively The patient demonstrates and/or reports adequate pain control throughout the perioperative period The patient received appropriate medication(s), safely administered during the perioperative period Acuity Level PACU I FT Entry 1 Start Time 08/17/22 11:24:00 Stop Time 08/17/22 12:05:00 Acuity Level Acuity Level I Last Modified By: Leni Clark RN 08/17/22 13:06:53 Finalized By: Leni Clark RN Document Signatures Signed By: Leni Clark RN 08/17/22 13:06 [facility] Main OR Preoperative Recordo n 08-17-2022 Main OR Preoperative Record PreOp Document Type FT Summary Primary Physician: Nas Hebert DO Finalized Date/Time: 08/17/22 10:03:41 Pt. Name: VIOLETTE AMANDA Sullivan/Sex: 1965 Female Med Rec #: [id number] Physician: Nas Hebert DO Financial #: [id number] Pt. Type: A Room/Bed: [facility] Admit/Disch: 08/17/22 05:40:33 - Institution: Case Times PreOp FT Pre-Care Text: Verifies consent for planned procedure, identifies individual values and wishes concerning care, includes family members in perioperative teaching Entry 1 Patient Times. In Pre Surgery 08/17/22 05:55:00 Out Pre Surgery 08/17/22 08:40:00 Outcomes Met? Yes Last Modified By: Dash Willams RN 08/17/22 10:03:40 Post-Care Text: The patient participates in decisions affecting his or her perioperative plan of care Finalized By: Dash Willams RN Document Signatures Signed By: Dash Willams RN 08/17/22 10:03 [facility] Monitor Recordon 08-17-2022 Monitor Record [id number] 0#1.00CD:127 [facility] Monitor Record [id number] 8#1.00CD:127 [facility] Outpatient Surgery Discharge Instructionon 08-17-2022 Outpatient Surgery Discharge Instruction [facility] [address], [place] [address] Patient Discharge Instructions PERSON INFORMATION Name: AMANDA OAKES Date of : 1965 Current Date: 08/17/2022 09:28:15 PHYSICIANS Admitting Physician: Nas Hebert DO Discharge Diagnosis: AMANDA OAKES has been given the following list of follow-up instructions, prescriptions, and patient education materials: IF UNABLE TO CONTACT YOUR PHYSICIAN AND YOU FEEL IT IS AN EMERGENCY, GO TO THE NEAREST EMERGENCY ROOM OR CALL 911 Rosina, AMANDA OAKES, have received the attached patient education materials/instructio ns and have verbalized understanding: May we do a follow up call? Yes No I was present when discharge instructions were given Patient Signature Date Clinican/Nurse Signature Date Follow up: With: Address: When: Nas Hebert [address] [place], [place] [id number] Business (1) 09/17/2022 8:30 AM Comments: Call for any problems. Keep scheduled appointment Pharmacy Information: You may receive a survey from [employer] asking you to rate your care experience. Your feedback is important and will help us understand what we do well and how we can improve the quality of care we provide to you, your loved ones and our community. It?s an honor to serve you. Thank you for choosing [facility] HERE ARE THE MEDICATION CHANGES THAT OCCURRED DURING YOUR HOSPITAL STAY New Medic[facility], [address] [place], [place] [id number], [phone] aspirin (aspirin 81 mg Oral EC Tab) 1 Tablets By Mouth 2 times a day. Refills: 0. cefadroxil (cefadroxil 500 mg Cap) 1 Capsules By Mouth every 12 hours for 2 Days. Refills: 0. docusate (Colace 100 mg Cap) 1 Capsules By Mouth 2 times a day as needed for constipation. Refills: 0. oxycodone (oxyCODONE 5 mg Tab) 1 Tablets By Mouth As Directed. 1-2 po q4-6 hrs prn pain Dx: M16.11, Z96.641 Duration: 7days. Refills: 0. Medications to Continue with No Changes Other Medications carvedilol (carvedilol 3.125 mg Tab) 1 Tablets By Mouth 2 times a day. Arrhythmia. meloxicam (meloxicam 15 mg Tab) 1 Tablets By Mouth every day. multivitamin 1 cap By Mouth every day. PATIENT EDUCATION INFORMATION Instructions: How To Use an Incentive Spirometer An incentive spirometer is a tool that measures how well you are filling your lungs with each breath. Learning to take long, deep breaths using this tool can help you keep your lungs clear and active. This may help to reverse or lessen your chance of developing breathing (pulmonary) problems, especially infection. You may be asked to use a spirometer: ? After a surgery. ? If you have a lung problem or a history of smoking. ? After a long period of time when you have been unable to move or be active. If the spirometer includes an indicator to show the highest number that you have reached, your health care provider or respiratory therapist will help you set a goal. Keep a list (log) of your progress as told by your health care provider. What are the risks? ? Breathing too quickly may cause dizziness or cause you to pass out. Take your time so you do not get dizzy or light-headed. ? If you are in pain, you may need to take pain medicine before doing incentive spirometry. It is harder to take a deep breath if you are having pain. How to use your incentive spirometer 1. Sit up on the edge of your bed or on a chair. 2. Hold the incentive spirometer so that it is in an upright position. 3. Before you use the spirometer, breathe out normally. 4. Place the mouthpiece in your mouth. Make sure your lips are closed tightly around it. 5. Breathe in slowly and as deeply as you can through your mouth, causing the piston or the ball to rise toward the top of the chamber. 6. Hold your breath for 3?5 seconds, or for as long as possible. ? If the spirometer includes a coach driver indicator, use this to guide you in breathing. Slow down your breathing if the indicator goes above the marked areas. 7. Remove the mouthpiece from your mouth and breathe out normally. The piston or ball will return to the bottom of the chamber. 8. Rest for a few seconds, then repeat the steps 10 or more times. ? Take your time and take a few normal breaths between deep breaths so that you do not get dizzy or light-headed. ? Do this every 1?2 hours when you are awake. 9. If the spirometer includes a goal marker to show the highest number you have reached (best effort), use this as a goal to work toward during each repet (more content not included)... [facility] Outside Recordson 08-17-2022 Outside Records [id number] #1.00CD:127 [facility] Patient Education - Texton 0 08-17-2022 Patient Education - Text Pulmonary Medicine How To Use an Incentive Spirometer An incentive spirometer is a tool that measures how well you are filling your lungs with each breath. Learning to take long, deep breaths using this tool can help you keep your lungs clear and active. This may help to reverse or lessen your chance of developing breathing (pulmonary) problems, especially infection. You may be asked to use a spirometer: ? After a surgery. ? If you have a lung problem or a history of smoking. ? After a long period of time when you have been unable to move or be active. If the spirometer includes an indicator to show the highest number that you have reached, your health care provider or respiratory therapist will help you set a goal. Keep a list (log) of your progress as told by your health care provider. What are the risks? ? Breathing too quickly may cause dizziness or cause you to pass out. Take your time so you do not get dizzy or light-headed. ? If you are in pain, you may need to take pain medicine before doing incentive spirometry. It is harder to take a deep breath if you are having pain. How to use your incentive spirometer 1. Sit up on the edge of your bed or on a chair. 2. Hold the incentive spirometer so that it is in an upright position. 3. Before you use the spirometer, breathe out normally. 4. Place the mouthpiece in your mouth. Make sure your lips are closed tightly around it. 5. Breathe in slowly and as deeply as you can through your mouth, causing the piston or the ball to rise toward the top of the chamber. 6. Hold your breath for 3?5 seconds, or for as long as possible. ? If the spirometer includes a coach driver indicator, use this to guide you in breathing. Slow down your breathing if the indicator goes above the marked areas. 7. Remove the mouthpiece from your mouth and breathe out normally. The piston or ball will return to the bottom of the chamber. 8. Rest for a few seconds, then repeat the steps 10 or more times. ? Take your time and take a few normal breaths between deep breaths so that you do not get dizzy or light-headed. ? Do this every 1?2 hours when you are awake. 9. If the spirometer includes a goal marker to show the highest number you have reached (best effort), use this as a goal to work toward during each repetition. 10. After each set of 10 deep breaths, cough a few times. This will help to make sure that your lungs are clear. ? If you have an incision on your chest or abdomen from surgery, place a pillow or a rolled-up towel firmly against the incision when you cough. This can help to reduce pain from coughing. General tips ? When you become able to get out of bed, walk around often and continue to cough to help clear your lungs. ? Keep using the incentive spirometer until your health care provider says it is okay to stop using it. If you have been in the hospital, you may be told to keep using the spirometer at home. Contact a health care provider if: ? You are having difficulty using the spirometer. ? You have trouble using the spirometer as often as instructed. ? Your pain medicine is not giving enough relief for you to use the spirometer as told. ? You have a fever. ? You develop shortness of breath. Get help right away if: ? You develop a cough with bloody mucus from the lungs (bloody sputum). ? You have fluid or blood coming from an incision site after you cough. Summary ? An incentive spirometer is a tool that can help you learn to take long, deep breaths to keep your lungs clear and active. ? You may be asked to use a spirometer after a surgery, if you have a lung problem or a history of smoking, or if you have been inactive for a long period of time. ? Use your incentive spirometer as instructed every 1?2 hours while you are awake. ? If you have an incision on your chest or abdomen, place a pillow or a rolled-up towel firmly against your incision when you cough. This will help to reduce pain. This information is not intended to replace advice given to you by your health care provider. Make sure you discuss any questions you have with your health care provider. Document Released: 09/19/2007 Document Revised: 06/01/2018 Document Reviewed: 03/22/2018 Elsevier Patient Education ? 2020 [employer]. [place], [place] [facility] DISCHARGE INSTRUCTIONS HIP REPLACEMENT ARTHROPLASTY INCISION CARE: Continue the daily dressing care to the hip as instructed in the hospital for 7 days postoperatively. The dressing will then be changed and worn an additional 7 days. You may then discontinue the dressing changes. The dressing over the upper pelvis area may be reoved postoperative day #3 and left open to the air. Please notify the office if any increase in redness, tenderness, drainage, fever, or wound separation is n (more content not included)... [facility] Progress Note-Physicianon Progress Note-Physician Patient: AMANDA OAKES Age: 57 years Sex: Female : 1965 Associated Diagnoses: None Author: Nas Hebert DO Postoperative Information Procedure: R RA DIMITRI Preoperative Diagnosis: R hip OA. Postoperative Diagnosis: same. Performed by: luke. Water Purifier: rupal. Specimens Removed: bone, soft tissue. Prosthesis: Eve. . Estimated Blood Loss: 250 ml. Complications: None. Anesthesia type: Spinal, fascia iliaca block. [facility] Comment on above: Result Comment: Elec tronically Signed By: Nas Hebert DO\.br\Date and Time Signed: 08/17/22 11:09 EDT Consent for Procedure/Surger yon 08-12-2022 Consent for Procedure/Surgery [id number] #1.00CD:127 [facility] Coding Summary.on 08-04-2022 Coding Summary. CD:[id number] Gh0bWw+PGhlYWQ+PE1FV GLmX58ogJVaeL4bQ4ARC ElOSywgQVBQTElOSyIgb xYjGN0wbWBzQRQm IC8+YU6lPADkMefymMZe q1R2hOI3S70nxl3aBBec qUZ0CHIkChBjaoplv9xt iHq3UZpuWfvfIqIo COPdzW81AUG4wL69Tq93 rHAzuDXao9jqlZo9ObQf SYKdJUR2lUfnEDcfz0Zb BUElQ52ukZPbm1V8 IGNvbGxhcHNlOyBlbXB0 hG1oPYwgxpwle1otwyha Pmq4rs16vLYkg3R6eEW9 X9IplgD1CSKpuCKn TivjqOLCjJ8thvhoh3on nlrmIvYqHYAsKLi5DAz2 KPOmfEepJpUvSP32YWZ2 NHNblnTsW9BtSRYv lAvzViA7i0S2Ej9OM0GT AejaK3ZLHRAIFDeljIZ+ ZE08aw85Z4ClBujaRyi3 MTXlQAF6aRD4mJ7j YIHaKRren0N4dQE4U4Rs hcFecy5sz8orBBCgQZvj K50wtHBdm5M1JQNlmJA7 ZSBhbKycDrFxbU74 Oyc+EBNsgRojq6SjDsyc o7dvg3eoqMe5MbjyUCLj ccLnjAtqCNV1s6LhQs4o RCLnnAI2nSI2yO1j XrSjZwA7TMipQ815EjYv pPMePlydH79xB4XymQD+ TLWvHpb9MFMokRgvZE0o J8UfDFXthtnctZMq nRbrHK5eHTPwefteOAHo qU5hTDUxP4s7JtNwWyW5 JOkiQ6GoZLZdzbcxKw98 lL3jQgElYwG9PJvt T9RsogU9CIEtsHUxOGge IXQ1W45ca2D0TVLlQJFq WUS8yXM7yB7sgPzfegut bGVmdDsgdmVydGlj ZNamWOjjU830UBAhdAbu PkNvZGluZyBEYXRlOiAg MDMvMTUvMjAyMzwvdGQ+ SKGiXBC7vZsfLPWc uXFiRYccYe2cdFdseVww WD3jGAVkbxhzGRPekM4w KTQusFKeiCwmPJ4lZSUr cihxc502MfAjNKV8 FINesCHvM5ClbD0rVlKh BDTtOHUvB3VopEKnSTal T196XDjxNkY4RHRqxrVu X8McWVUidBnlHgI6 m4F9Wx0Qt6FlvwqrI1Ku yCTsYlLaDlvfYWb9Q4Qs PjwvdHI+QL34XVTdIC81 LFk4BKF8oWpmFAkj YUJbG2RxrL1pExAeYQZk ZGRkOyc+PHRhYmxlIHdp ZHRoPScxMDAlJyBzdHls NC5kXw7tLVGmVNKd xNrnrBXlJwQde9dcNTFq OUafIJ8bhVmuD4EtlKN3 VPKih2i1Iw02T45nG6Nk dXA+VXZzaTK1vIL6 gQ0vAeNnPlZ4JLagH755 MqTltMXaIayka2uym2gh rTw5ChN3VYCerrZcdNvr VUL7u7FvLp27U68h IHdpZHRoPSIxNSUiIHZh cMtutp8cjP8vOv3+PGNv xTN6cNY0bT0iEdUbWyR5 HQuuQ371ZnKyxZTt Inpue6msn3ablBu6JsIb BQSgntMgiFnlSCX0n6Wg Xx20F9PngWouy9IcAtg7 kl39vSEou8H8tEC5 E1KyXSRyxkvkbWTtmJqe US0cYXCpcpmdSLUvzA2n ZSMeK6w2YwJeCmQ3IWtw Z7ShmzL2ZVJmcCNh XLRneBWBsJ2basiho2ok ddaqZbCfDNCfPMq2NBe2 XWXlzZknBySzCNI6OtX2 LUG9vOLpvK5sfMjk kzvkiD5rAul+OQJ7dQCa aWWDAO2hKqaxoIS+PHRk KRH8zYcvPAirFLAqjE1x APCwV4b7HjGpGrU0 YHzvN8YqsnX3XAWfvOGy BSWawPHCpW4mprzwb1ya lqtfZkLxVWZdAMh7IWm6 LWFsaWduOiBsZWZ0 FhL8TCU1sXYubN1qoEbw hrvcjC7bJlz+QmlydGgg AFG6WJc7N3MwWxi8HXQg hUqjXX0xpKQrEBqx Xk7rhDiloIjjJE5rDMYt gtmtj205PuPsv9kuUXFo cLYpCPbtLQX4R68pz8P9 TJKkEMCbANX1oMI8 yC7yiHcbtgmmjCWfkQhu ipUrkWidTMupKUbxF210 ZAYrmEazGaRdIUn8A7Px Yxb2PMZfcHhzKH0d aAAsXRrjMe8dwRnnfFjp QT0vNFUzlffbs694DzFb a5kvGGOnsNPzSFakHKY7 I82sa8S4NPJkSSGe YAA0dPU2kY0mcPvolalp bGVmdDsgdmVydGljYWwt ZHhyC565TNIesPixEuIs qSf8B7PzKgw2GYZh xPreKJ6wmNZmEAvbLj9s qYkiaJynBB0iLFNlcbtg b932YcDxp5nePHCsoFHe YIxqTCC9C19nc3K7 CJNsHLIuLKD3fBJ6tP2u bGlnbjogbGVmdDsgdmVy hDppMNqaETkyR843BCSb cDsnPlBhdGllbnQg IQbgVIa6U4OuKqhzvPA+ AS82RGPxXY76pNMdrVNh v9jtmCf2VkDfGWNpZYR4 mDnkJEdia4ScSVGy C95hdSQbi0U4TONfkKyx eFHaVrFpuWN5jX8dFEkn uhymu9owhqpyAnzqf0fd gn48aQ65F14rZCgs ZHRoPSIzMCUiIHZhbGln gy3ukU4uGu5+PGNvbCB3 cGU5rI4lAIBiNvI8AUyn A650MyQhlWRxPycp r5fzd4dfqRt4NpC4DVYw bmUohNdtAXD1p5UgXz18 I75cOPomBZTyEEIdHLPt VPKrpWnxad4qfT0a Ii8+UHCzuFW8lHD9cI4k KcDrYmK8OQnlD532IrYd gHVwWyqaU69zN1ZslBK+ GHCiUef8GDQtcMfz HW1ceWAgFUzrPa9iTZV0 XwXcByOuQKlmG8WsQUVk vwxjptawfLH4WZRkKZNu rP06Xb1aiZqrTHRe bGNTrH9hnllcf7calfil CyKtEMUxYHp8QPw0YJUf eVfuEbVsBYX3FxB1MIW9 aOIztF6gjMyqjsqe iI7dY4FuNDXhosrcUc85 kT8qGzJlZoO4SQjfPmr+ M1OLJ6TJKDSZVaZKXEg4 C0BuHna6KGMigGss OK4kjKMfQJmjJo7kmJtm uKgxJC1bCQKuvdiqMUGx qX1yIHGvyKOgwRktHL4l TOOufzpxk409BeCh DJD5ZNOjdCGmY3HpzD1d FmKuGPGyRDWfO2LrgJLt QBteX316WVmaKiB6PPBw mvFtY1WbFAOhoThv OtX4i4Y3Eu4gMV0cOW3c VGW6NU34FT22mBPjk2G5 mWW4X1HcVEOeqvgmjqpf qQQ1USDxYSMwtC11 dPKtICjeAl8ny8T5u510 HWQiSOXdtD28Kc8xqNez ONDpoEJJeK8uwjyvu4nq cjogIzAwMDAwMDt0 FFc6JVLgzPbhHnUrPIU0 SgZ6ZXI4pEXufT3qyIii bbfriR8lZmf+NTggWWVh tqL6T2YhPzf2NYNn uPaoFJ5ccSHsUBjkVm9k qMhwnXrrAN7iQFLkjvyv DCEmpQ7sYGNpzDKdnYbn FF9fFJOezdvys465 AkDrWXL9WDRggYUfL1Xl qV6mZxScQWUaDSEdZ5Ho iMPiIJogZ059JIwpDzV5 WHMvyeXiD9BoBAXp kZwxQhT7q1N1Mu8YDJ9b gMT5K9AyQga1QCWlhZhm IL6seAZtXJtzZd3lhZkq kFofWU3jQISzctef NCLrqN6oJCCwqFIfcXvr LL9zFALhhojlx185WdAz KMI8XCQlpUYoL4KpnO6g AhHlEOSgMHTbA4He mMCfCUloL789OLosKsU5 JAFnwxBwW7VjACEfjRdv ReX1i8N8Xm7CrZQsMXYz CM93YR58PE33Q8Vs PjwvdGFibGU+PHRhYmxl IHdpZHRoPScxMDAlJyBz zNglRN7xHt8jQDBpVIKn lPafjSGqNrLui6qo WKOzABdcMH5ixSleB3Wj rVJ6NLUnq5l3Tb13G84y D1DzmDA+HIZkwDK8yDB9 eM1fYmDmViO4HIrr F419AmCqgSYcUyzaz8vf v9dzgVh3RdCxZKJrxsUf zFpnLXS5g9XlVs69Q76p IHdpZHRoPSIyMCUi FRXhfEvkoh9lxP3hKi6+ PWWosRT3pJJ1nA5xGxEa XvX0HBkiP019MmYsrNYa StcbP28lI7ZthHT+ SGTtZhf6PFVfyXirFC1r qEJjESpvHk5tJLO0AmKr EzBrSBwtZ3ZdWEVgqxhb wxumcQN8PCLjAIRz jV73Cg4avMdaZi6bFGVb IRV0KVQijEPvP8AaxM6x IyZvKLNwNSRxT0OwjWWn IFikP871HPvvBkY9 IJHqvhBaL9WsDYLwmBsv YsC3p5U9Qb3XlKqrxTWf II9zHwWlACc1S7QhBlo7 AMOpbTujLP0klRJn VNxqZg9diEekoFuaNC1q VXMkxhhqj871QkPpi0kx HIFknKXaRIzhWYB5U84n h6L4LIRaSKDwKEP3 rWP4xK2wsTglwddlrZMn dDsgdmVydGljYWwtYWxp D725FJRdbPlgXsLTDun0 M1YkPiw5MYEanLni UA4rfNLhIRhtUr4zpCjl hItlZI2iPZWcoifzd509 BfXmi0wrNQMimFJsVMqn CJS8Z87xu1O1FKSz UORpGQS7bXQ2vR1fwIgb bjogbGVmdDsgdmVydGlj FYvzNKquI556OHWvhPjj Qq8VAdd3A3PwAhh3 WICvoIyfKV3mrJUnMWxu Dw8pvKuyaNyzMT9jLAXc fwiyc201KqUds1aySDJb pXRuNGbvUOT7F70o j6W1EFQsFJDdZLS3pSN1 lS0mqRurqdtepLJczVxl qwWhyQwoPQpoMUmoL841 IHRvcDsnPlBheWVy OjwvdGQ+VY62cz62D2Yd ZdhoCmg5FPXtKIQ8qFX2 dL0sJIBfUMvja2N2yML0 U5FhqmPify8me3jd YXBz (more content not included)... [facility] Lower Extremity w/o Contr ast Righton 07-30-2022 CT Lower Extremity w/o Contrast Right Exam Date/Time: 07/29/2022 08:11 EST Reason for Exam: RIGHT HIP OSTEOARTHRITIS Report IMPRESSION: RIGHT HIP OSTEOARTHRITIS. EXAMINATION: CT Lower Extremity w/o Contrast Right HISTORY: Right hip osteoarthritis TECHNIQUE: Multiple contiguous axial images were obtained of the right lower extremity utilizing Kelechi protocol. Multiplanar reformats were obtained. COMPARISON: FINDINGS: Degenerative changes including joint space narrowing, subcortical cyst formation, and marginal osteophyte formation of the right hip. No acute fracture. Visualized myotendinous structures appear intact. Bilateral sacralization of L5. Degenerative changes of the lower lumbar spine. All CT scans at this facility use dose modulation, iterative reconstruction, and/or weight based dosing when appropriate to reduce radiation dose to as low as reasonably achievable. Ordering Provider: Nas Hebert FINAL REPORT Dictated: 07/30/2022 1:44 pm Hao Morton DO Signed (Electronic Signature): 07/30/2022 1:44 pm Signed by: Hao Morton DO Transcribed by: ANSHU Technologist: BASIM [facility] ABO/Rh Retypeon 07-29-2022 ABO/Rh Retype Interp Negative Invalid Interpretation [facility] Comment on above: Performed By: #### 1 [id number] ####[facility] [address] [place] [address] BLOOD BANKOrdered By: Courtney Del Toro on 07-29-2022 ABO/Rh Retype Interp Negative Invalid Interpretation Code [facility] [place] Subsection BUNon 07-29-2022 Urea nitrogen [Mass/Vol] 10 mg/dL Normal 5-21 [facility] Comment on above: Performed By: #### 2 734997, 4400673, 4617487, 75825434, 0692730, 5603191 ####[facility] [address] [place] [address] CBC w/Indiceson 07-29-2022 Erythrocyte distribution width (RBC) [Ratio] 14.1 % Normal 10.9-14.2 [facility] Comment on above: Performed By: #### 2 424534, 1930611, 8760467, 32717430, 1735945, 8475233 ####[facility] [address] [place] [address] Hematocrit (Bld) [Volume fraction] 38.7 % Normal 34.0-46.0 [facility] Comment on above: Performed By: #### 2 282612, 7436080, 2501083, 43300246, 4116538, 4566654 ####[address] [place] [address] Hemoglobin (Bld) [Mass/Vol] 13.1 g/dL Normal 12.0-16.0 [facility] Comment on above: Performed By: #### 2 919661, 8209461, 5079222, 33092872, 0931218, 8320693 ####[address] [address] MCH (RBC) [Entitic mass] 30.7 pg Normal 27.0-34.0 [facility] Comment on above: Performed By: #### 2 333109, 9038157, 3807663, 46061127, 7357576, 0657349 ####[address] [address] MCHC (RBC) [Mass/Vol] 33.9 g/dL Normal 31.4-36.0 [facility] Comment on above: Performed By: #### 2 941725, 0612029, 9445047, 68124035, 4348012, 8115033 ####[address] [address] MCV (RBC) [Entitic vol] 90.7 fL Normal 80.0-100.0 [facility] Comment on above: Performed By: #### 2 651098, 4780595, 5808447, 15601788, 7074922, 8910382 ####[address] [place] [address] Platelet mean volume (Bld) [Entitic vol] 8.1 fL Normal 6.4-10.8 [facility] Comment on above: Performed By: #### 2 799614, 2333769, 7087221, 51296744, 9624925, 6592127 ####[address] [address] Platelets (Bld) [#/Vol] 258.0 E9/L Normal 150.0-500.0 [facility] Comment on above: Performed By: #### 2 721153, 5299266, 6225907, 50892287, 9151588, 8425492 ####[facility] [address] [place] [address] RBC (Bld) [#/Vol] 4.3 E12/L Normal 4.3-5.9 [facility] Comment on above: Performed By: #### 2 279117, 3750187, 3632863, 93199816, 2820800, 0720569 ####[facility] [address] [place] [address] WBC corrected for nucl RBC Auto (Bld) [#/Vol] 3.8 E9/L Low 4.0-11.0 [facility] Comment on above: Performed By: #### 2 874320, 4371105, 4402973, 20302254, 6731106, 0878651 ####[facility] [address] [place] [address] CHEMISTRYOrdered By: Lashanda Villarreal on 07-29-2022 Anion gap [Moles/Vol] 11 mmol/L Normal 6 - 16 mEq/L [facility] Remisol Chloride [Moles/Vol] 101 mmol/L Normal 101 - 1 11 mmol/L [facility] CO2 [Moles/Vol] 28 mmol/L Normal 21 - 31 mmol/L [facility] Creatinine [Mass/Vol] 0.8 mg/dL Normal 0.5 - 1.3 mg/dL [facility] Glucose [Mass/Vol] 89 mg/dL Normal 55 - 199 mg/dL [facility] Potassium [Moles/Vol] 4.1 mmol/L Normal 3.5 - 5.3 mmol/L [facility] Sodium [Moles/Vol] 136 mmol/L Normal 135 - 145 mmol/L [facility] Urea nitrogen [Mass/Vol] 10 mg/dL Normal 5 - 21 mg/dL [facility] CHEMISTRYOrdered By: SYSTEM SYSTEM on 07-29-2022 GFR/1.73 sq M.predicted among blacks MDRD (S/P/Bld) [Vol rate/Area] mL/min/1.73 m2 Normal >=59mL/min/1. 73 m2 [facility] [place] Chem S GFR/1.73 sq M.predicted among non-blacks MDRD (S/P/Bld) [Vol rate/Area] mL/min/1.73 m2 Normal >=59mL/min/1. 73 m2 [facility] [place] Chem S Consent for Treatmenton Consent for Treatment [id number] #1.00CD:127 [facility] Creatinineon 07-29-2022 Creatinine [Mass/Vol] 0.8 mg/dL Normal 0.5-1.3 [facility] Comment on above: Performed By: #### 2 339518, 7463666, 7991371, 13654014, 7166897, 2069034 ####[facility] [address] [place] [address] Glucoseon 07-29-2022 Glucose [Mass/Vol] 89 mg/dL Normal 55-199 [facility] Comment on above: Performed By: #### 2 660565, 0485772, 3808954, 39425551, 2686402, 9614145 ####[facility] [address] [place] [address] HEMATOLOGYOrdered By: Courtney Del Toro on 07-29-2022 Erythrocyte distribution width (RBC) [Ratio] 14.1 % Normal 10.9 - 14.2 % [facility] [place] HemeAutoSS Hematocrit (Bld) [Volume fraction] 38.7 % Normal 34.0 - 46.0 % [facility] [place] [facility] Hemoglobin (Bld) [Mass/Vol] 13.1 g/dL Normal 12.0 - 16.0 gm/dL [facility] [place] [facility] MCH (RBC) [Entitic mass] 30.7 pg Normal 27.0 - 34.0 pg [facility] [place] HemeAutoSS MCHC (RBC) [Mass/Vol] 33.9 g/dL Normal 31.4 - 36.0 gm/dL [facility] [place] HemeAutoSS MCV (RBC) [Entitic vol] 90.7 fL Normal 80.0 - 100.0 fL [facility] [place] [facility] Platelet mean volume (Bld) [Entitic vol] 8.1 fL Normal 6.4 - 10.8 fL [facility] [place] [facility]eAuto[facility] Platelets (Bld) [#/Vol] 258.0 E9/L Normal 150.0 - 500.0 E9/L [facility] [place] [facility]eAuto[facility] RBC (Bld) [#/Vol] 4.3 E12/L Normal 4.3 - 5.9 E12/L [facility] [place] [facility] WBC corrected for nucl RBC Auto (Bld) [#/Vol] 3.8 E9/L Low 4.0 - 11.0 E9/L [facility] [place] HemeAutoSS Lyteson 07-29-2022 Anion gap [Moles/Vol] 11 mmol/L Normal 6-16 [facility] Comment on above: Performed By: #### 2 975904, 2067324, 2369134, 96074370, 3506922, 1652171 ####[facility] [address] [place] [address] Chloride [Moles/Vol] 101 mmol/L Normal 101-111 [facility] Comment on above: Performed By: #### 2 146917, 0339448, 8370760, 75095228, 0058921, 0982991 ####[facility] [address] [place] [address] CO2 [Moles/Vol] 28 mmol/L Normal 21-31 [facility] Comment on above: Performed By: #### 2 867404, 9319489, 5558713, 48373836, 8401347, 9533938 ####[facility] [address] [place] [address] Potassium [Moles/Vol] 4.1 mmol/L Normal 3.5-5.3 [facility] Comment on above: Performed By: #### 2 848057, 8185873, 5861255, 34207651, 4444940, 8354835 ####[facility] [address] [place] [address] Sodium [Moles/Vol] 136 mmol/L Normal 135-145 [facility] Comment on above: Performed By: #### 2 131056, 9690682, 9251893, 75457278, 7413232, 6005384 ####[facility] [address] [place] [address] UA With Cult Reflexon 2022 Bilirubin Ql (U) Negative Normal Negative [facility] Comment on above: Performed By: #### 1 3715017 ####[address] [address] Clarity (U) CLEAR Normal Clear [facility] Comment on above: Performed By: #### 1 9605815 ####[address] [address] Color (U) YELLOW Normal Yellow [facility] Comment on above: Performed By: #### 1 9190978 ####[address] [address] Epithelial cells.squamous LM.HPF (Urine sed) [#/Area] 0-2 Normal 0-2 [facility] Comment on above: Performed By: #### 1 4146113 ####[facility] [address] [place] [address] Glucose Test strip (U) [Mass/Vol] Negative Normal Negative [facility] Comment on above: Performed By: #### 1 2172591 ####[address] [address] Hemoglobin Ql (U) Negative Normal Negative [facility] Comment on above: Performed By: #### 1 7429974 ####[facility] [address] [place] [address] Ketones (U) [Mass/Vol] Negative Normal Negative [facility] Comment on above: Performed By: #### 1 5803585 ####[address] [address] [place].plasma/Lithiu m.RBC (Bld) [Mass ratio] 0-3 Normal 0-3 [facility] Comment on above: Performed By: #### 1 7897600 ####[address] [address] Nitrite Ql (U) Negative Normal Negative [facility] Comment on above: Performed By: #### 1 8027075 ####[address] [address] pH (U) 7.0 [pH] Invalid Interpretation Code 5.0-9.0 [facility] Comment on above: Performed By: #### 1 2055817 ####[address] [address] Protein (U) [Mass/Vol] Negative Normal Negative [facility] Comment on above: Performed By: #### 1 4033484 ####[address] [address] Specific gravity (U) [Rel density] 1.010 Invalid Interpretation Code 1.005-1.030 [facility] Comment on above: Performed By: #### 1 8883251 ####[address] [address] Type of Urine collection method Clean Catch Normal [facility] Comment on above: Performed By: #### 1 7880888 ####[address] [address] Urobilinogen Qn (U) 0.2 {Damian'U}/dL Normal 0.0-1.0 [facility] Comment on above: Performed By: #### 1 6701950 ####[address] [address] WBC Auto Ql (U) TRACE Abnormal Negative [facility] Comment on above: Performed By: #### 1 0236941 ####[address] [address] WBC LM.HPF (Urine sed) [#/Area] 0-5 Normal 0-5 [facility] Comment on above: Performed By: #### 1 6753772 ####[address] [address] URINALYSISOrdered By: An Fletcher on 07-29-2022 Bilirubin Ql (U) Negative (07/29/22 8:50 AM) Normal Negative [facility] UA Auto SS Clarity (U) Clear (07/29/22 8:50 AM) Normal Clear [facility] UA Auto SS Color (U) Yellow (07/29/22 8:50 AM) Normal Yellow [facility] UA Auto SS Epithelial cells.squamous LM.HPF (Urine sed) [#/Area] 0-2 /HPF Normal 0-2/HPF [facility] UA Aut o SS Glucose Test strip (U) [Mass/Vol] Negative (07/29/22 8:50 AM) Normal Negative [facility] UA Auto SS Hemoglobin Ql (U) Negative (07/29/22 8:50 AM) Normal Negative [facility] UA Auto SS Ketones (U) [Mass/Vol] Negative (07/29/22 8:50 AM) Normal Negative [facility] UA Auto SS [place].plasma/Lithiu m.RBC (Bld) [Mass ratio] 0-3 /HPF Normal 0-3/HPF [facility] UA Auto SS Nitrite Ql (U) Negative (07/29/22 8:50 AM) Normal Negative [facility] UA Auto SS pH (U) 7.0 *NA* (07/29/22 8:50 AM) Invalid Interpretation Code 5.0 - 9.0 [facility] UA Auto SS Protein (U) [Mass/Vol] Negative (07/29/22 8:50 AM) Normal Negative [facility] UA Auto SS Specific gravity (U) [Rel density] 1.010 *NA* (07/29/22 8:50 AM) Invalid Interpretation Code 1.005 - 1.030 [facility] UA Auto SS UA Spec Desc Clean Catch (07/29/22 8:50 AM) Normal [facility] UA Auto SS Urobilinogen Qn (U) 0.8239290 {Damian'U}/dL Normal 0.0 - 1.0 EU/dL [facility] UA Auto SS WBC Auto Ql (U) Trace *ABN* (07/29/22 8:50 AM) Invalid Interpretation Code Negative [facility] UA Auto SS WBC LM.HPF (Urine sed) [#/Area] 0-5 /HPF Normal 0-5/HPF [facility] UA Auto SS XR Chest 2 Viewson 3 XR Chest 2 Views Exam Date/Time: 07/29/2022 08:19 EST Reason for Exam: P.A.T. Report IMPRESSION: NO RADIOGRAPHIC EVIDENCE OF ACTIVE DISEASE IN THE CHEST. CLINICAL INFORMATION: P.A.T. COMPARISON: None available. FINDINGS: Two views of the chest were obtained. Heart and mediastinum appear normal. The lungs appear clear. Visualized bony thorax and remainder of the chest appears unremarkable. Ordering Provider: Albaro Pink FINAL REPORT Dictated: 07/29/2022 9:59 am Brigido Oliva MD Signed (Electronic Signature): 07/29/2022 9:59 am Signed by: Brigido Oliva MD Transcribed by: ANSHU Technologist: SAKINA Technical Comments Radiation Dose: Ka,r in mGy = na DAP = na [facility] eGFRon 07-29-2022 GFR/1.73 sq M.predicted among blacks MDRD (S/P/Bld) [Vol rate/Area] mL/min/{1.73_m2} Normal >=59 [facility] Comment on above: Order Comment: Order added by Discern Expert. Result Comment: eGFR is race adjusted. AA=. Performed By: #### 2 091855, 4041669, 5547004, 71335021, 2731889, 0375299 ####[facility] [address] [place] [address] GFR/1.73 sq M.predicted among non-blacks MDRD (S/P/Bld) [Vol rate/Area] mL/min/{1.73_m2} Normal >=59 [facility] Comment on above: Order Comment: Order added by Discern Expert. Result Comment: Certified Physician Assistant gene kidney disease could be indicated at eGFR's of less than 60 mL/min/1.73m2. Kidney failure is indicated at less than 15 mL/min/1.73m2. Performed By: #### 2 [id number], [id number], [id number], [id number], [id number], [id number] ####[facility] [address] [place] [address] Physician Orderon 07-22-2022 Physician Order [id number] 02#1.00CD:127 Normal [facility] Pre-Certification Formon Pre-Certification Form [id number]#1.00CD:127 Normal [facility] Physician Orderon 07-16-2022 Physician Order [id number] #1.00CD:127 Normal [facility] PAP ACOG PANEL 2: 30 to 65on 03-28-2022 . . Normal [facility] Comment on above: Result Comment: Perf ormed at: BA Performed By: #### 4 [id number] #### [facility] [address] [address] [address] Cali Ortiz Age Gdln ACOG Testing 30-65 [facility] Comment on above: Performed By: #### 4 [id number] #### [facility] [address] [address] [address] Cali Ortiz DIAGNOSIS: Comment [facility] Comment on above: Result Comment: NEGA TIVE FOR INTRAEPITHELIAL LESION OR MALIGNANCY. CELLULAR CHANGES ASSOCIATED WITH ATROPHY ARE PRESENT. Performed at: BA Performed By: #### 4 [id number] #### [facility] [address] [address] [address] Cali Ortiz HPV Aptima Negative Normal [facility] Comment on above: Result Comment: This nucleic acid amplification test detects fourteen high-risk HPV types (16,18,31,33,35,39,45,51,52,56,58,59,66,68) without differentiation. Performed at: =G Performed By: #### 4 [id number] #### [facility] [address] [address] [address] Cali Ortiz HPV Genotype Reflex Comment Normal [facility] Comment on above: Result Comment: Crit eria not met, HPV Genotype not performed. Performed at: BA Performed By: #### 4 [id number] #### [facility] [address] [address] [address] Cali Ortiz Methodology: Comment Normal [facility] Comment on above: Result Comment: This liquid based ThinPrep(R) pap test was screened with the use of an image guided system. Performed at: WB Performed By: #### 4 [id number] #### [facility] [address] [place] [address] Dr. Cali Ortiz Note: Comment Normal [facility] Comment on above: Result Comment: The Pap smear is a screening test designed to aid in the detection of premalignant and malignant conditions of the uterine cervix. It is not a diagnostic procedure and should not be used as the sole means of detecting cervical cancer. Both false-positive and false-negative reports do occur. . Performed at: WB Performed By: #### 4 [id number] #### [facility] [address] [address] [address] Cali Ortiz Performed by: Comment Normal [facility] Comment on above: Result Comment: Aleyda Stone, Right Of Way Clearer (ASCP) Performed at: BA Performed By: #### 4 [id number] #### [facility] [address] [place] [address] Dr. Cali Ortiz Specimen adequacy: Comment Normal [facility] Comment on above: Result Comment: Sati sfactory for evaluation. Endocervical component may not be distinguished in cases of atrophy. Performed at: BA Performed By: #### 4 [id number] #### [facility] [address] [place] [address] Dr. Cali Ortiz MG MAMM SCREEN 3D OCTAVIO CADon 02-15-2022 MG MAMM SCREEN 3D OCTAVIO CAD Patient: AMANDA OAKES Exam Date: 02/15/2022 : 1965 Gender:F Ordering : DR JOSE HARRIS . Admission #: [id number] Family : Order #: [id number] CLICK HERE TO VIEW EXAM RADIOLOGY REPORT PROCEDURE: MAMMOGRAM SCREENING 3D BILATERAL CAD COMPARISON: MG MAMM SCREEN 3D OCTAVIO CAD, 02/12/2021. MG MAMM SCREEN OCTAVIO W CAD, 02/12/2020. INDICATIONS: Screening mammography Calculator Name NCI Breast Cancer Risk Assessment Tool 5 Year Breast Cancer Risk 1.00% Lifetime Breast Cancer Risk 5.60% Personal Breast Cancer No Personal Ovarian Cancer No Treatments None Family Cancers None LOCATION: [facility] BREAST COMPOSITION: Scattered areas fibroglandular density. FINDINGS: DIAGNOSTIC CATEGORY 1--NEGATIVE. NO CHANGE FROM COMPARISON ASSESSMENT. Scattered benign-appearing calcifications are present. Scattered benign-appearing lymph nodes are present. RIGHT BREAST: No significant suspicious finding. LEFT BREAST: No significant suspicious finding. RECOMMENDATIONS: ROUTINE MAMMOGRAM AND CLINICAL EVALUATION IN 12 MONTHS. PLEASE NOTE: A NORMAL MAMMOGRAM DOES NOT EXCLUDE THE POSSIBILITY OF BREAST CANCER. A CLINICALLY SUSPICIOUS PALPABLE LUMP SHOULD BE BIOPSIED. Dictated by: Nas Robb MD on 02/15/2022 at 11:02 Approved by: Nas Robb MD on 02/15/2022 at 11:03 Normal [facility] CBC AUTO DIFFon 08-19-2021 BASO # 0.1 103/ul Normal 0.0-0.1 [facility] Comment on above: Performed By: #### C BC #### [facility] [address] [place] [address] Dr. Cali Ortiz Basophils/100 WBC (Bld) 1.4 % Normal 0.2-2.0 [facility] Comment on above: Performed By: #### C BC #### [facility] [address] [place] [address] Dr. Cali Ortiz EO # 0.1 103/ul Normal 0.0-0.7 [facility] Comment on above: Performed By: #### C BC #### [facility] [facility] [address] [place] [address] Dr. Cali Ortiz Eosinophils/100 WBC (Bld) 3.1 % Normal 0.9-7.0 [facility] Comment on above: Performed By: #### C BC #### [facility] [address] [place] [address] Dr. Cali Ortiz Erythrocyte distribution width (RBC) [Ratio] 13.2 % Normal 11.0-15.0 [facility] Comment on above: Performed By: #### C BC #### [facility] [address] [place] [address] Dr. Cali Ortiz Hematocrit (Bld) [Volume fraction] 40.7 % Normal 36.0-48.0 [facility] Comment on above: Performed By: #### C BC #### [facility] [address] [place] [address] Dr. Cali Ortiz Hemoglobin (Bld) [Mass/Vol] 13.0 g/dL Normal 12.0-16.0 The [facility] Comment on above: Performed By: #### C BC #### [facility] [address] [place] [address] Dr. Cali Ortiz IG # 0.01 10e3/ul Normal 0.00-0.03 [facility] Comment on above: Performed By: #### C BC #### [facility] [address] [place] [address] Dr. Cali Ortiz IG % 0.2 % Normal 0.0-0.5 [facility] Comment on above: Performed By: #### C BC #### [facility] [address] [place] [address] Dr. Cali Ortiz LYMPH # 1.4 103/ul Normal 1.2-3.8 The [facility] Comment on above: Performed By: #### C BC #### [facility] [address] [place] [address] Dr. Cali Ortiz Lymphocytes/100 WBC (Bld) 31.9 % Normal 20.5-60.0 The [facility] Comment on above: Performed By: #### C BC #### [facility] [address] [place] [address] Dr. Cali Ortiz MANUAL DIFF REQ NO Normal [facility] Comment on above: Performed By: #### C BC #### [facility] [address] [place] [address] Dr. Cali Ortiz MCH (RBC) [Entitic mass] 30.7 pg Normal 26.7-34.0 The [facility] Comment on above: Performed By: #### C BC #### [facility] [address] [place] [address] Dr. Cali Ortiz MCHC (RBC) [Mass/Vol] 31.9 g/dL Normal 29.9-35.2 The [facility] Comment on above: Performed By: #### C BC #### [facility] [address] [place] [address] Dr. Cali Ortiz MCV (RBC) [Entitic vol] 96.2 fL Normal 81.0-99.0 The [facility] Comment on above: Performed By: #### C BC #### [facility] [address] [place] [address] Dr. Cali Ortiz MONO # 0.4 103/ul Normal 0.3-0.8 The [facility] Comment on above: Performed By: #### C BC #### [facility] [address] [place] [address] Dr. Cali Ortiz Monocytes/100 WBC (Bld) 10.3 % Normal 1.7-12.0 The [facility] Comment on above: Performed By: #### C BC #### [facility] [address] [place] [address] Dr. Cali Ortiz NEUT # 2.3 103/ul Normal 1.4-6.5 The [facility] Comment on above: Performed By: #### C BC #### [facility] [address] [place] [address] Dr. Cali Ortiz Neutrophils/100 WBC (Bld) 53.1 % Normal 43.0-75.0 The [facility] Comment on above: Performed By: #### C BC #### [facility] [address] [place] [address] Dr. Cali Ortiz Platelet mean volume (Bld) [Entitic vol] 9.8 fL Normal 9.5-13.5 The [facility] Comment on above: Performed By: #### C BC #### [facility] [address] [place] [address] Dr. Cali Ortiz PLT 267 103/ul Normal 150-450 The [facility] Comment on above: Performed By: #### C BC #### [facility] [address] [place] [address] Dr. Cali Oritz RBC 4.23 106/ul Normal 4.20-5.40 The [facility] Comment on above: Performed By: #### C BC #### [facility] [address] [place] [address] Dr. Cali Ortiz WBC 4.3 103/ul Normal 4.0-11.0 The [facility] Comment on above: Performed By: #### C BC #### [facility] [address] [address] [address] Cali Ortiz GLYCOHEMOGLOBIN A1Con 2021 ADA RECOMMENDATION ADA THERAPEUTIC TARGET 6.0 - 7.0 ACTION SUGGESTED > 7.0 Normal [facility] Comment on above: Performed By: #### A 1C #### [facility] [address] [address] [address] Cali Ortiz Glucose [Mass/Vol] 105 mg/dL Normal [facility] Comment on above: Performed By: #### A 1C #### [facility] [address] [address] [address] Cali Ortiz HbA1c (Bld) [Mass fraction] 5.3 % Normal <=6.0 [facility] Comment on above: Performed By: #### A 1C #### [facility] [address] [place] [address] Dr. Cali Ortiz LIPID PROFILEon 08-19-2021 CHOL-HDL RATIO NORM SEE BELOW Normal [facility] Comment on above: Result Comment: 3.3 - 4.4 LOW RISK 4.4 - 7.1 AVERAGE RISK 7.1 - 11.0 MODERATE RISK >11.0 HIGH RISK Performed By: #### T SH, BMP, LIPID, LIVER #### [facility] [address] [place] [address] Dr. Cali Ortiz Cholesterol [Mass/Vol] 216 mg/dL Critically high <=200 [facility] Comment on above: Performed By: #### T SH, BMP, LIPID, LIVER #### [facility] [address] [place] [address] Dr. Cali Ortiz Cholesterol in HDL [Mass/Vol] 84 mg/dL Critically high 40-60 [facility] Comment on above: Performed By: #### T SH, BMP, LIPID, LIVER #### [facility] [address] [address] [address] Cali Ortiz Cholesterol in LDL [Mass/Vol] 112.2 mg/dL Normal [facility] Comment on above: Performed By: #### T SH, BMP, LIPID, LIVER #### [facility] [address] [address] [address] Cali Ortiz Cholesterol.total/Cho lesterol in HDL [Mass ratio] 2.6 {ratio} Normal [facility] Comment on above: Performed By: #### T SH, BMP, LIPID, LIVER #### [facility] [address] [address] [address] Cali Ortiz HDL NORMAL > or = 60 mg/dl - LOW CARDIOVASCULAR RISK <40 mg/dl - HIGH CARDIOVASCULAR RISK Normal [facility] Comment on above: Performed By: #### T SH, BMP, LIPID, LIVER #### [facility] [address] [address] [address] Cali Ortiz LDL CALC NORMAL SEE BELOW Normal [facility] Comment on above: Result Comment: <100 mg/dl OPTIMAL 100 - 129 mg/dl NEAR OR ABOVE OPTIMAL 130 - 159 mg/dl BORDERLINE HIGH 160 - 189 mg/dl HIGH >190 mg/dl VERY HIGH Performed By: #### T SH, BMP, LIPID, LIVER #### [facility] [address] [address] [address] Cali Ortiz Triglyceride [Mass/Vol] 99 mg/dL Normal <=150 [facility] Comment on above: Performed By: #### T SH, BMP, LIPID, LIVER #### [facility] [address] [address] [address] Cali Ortiz VLDL CALC 19.8 mg/dL Normal [facility] Comment on above: Performed By: #### T SH, BMP, LIPID, LIVER #### [facility] [address] [address] [address] Cali Ortiz LIVER PROFILEon 08-19-2021 Albumin [Mass/Vol] 4.1 g/dL Normal 3.4-5.0 [facility] Comment on above: Performed By: #### T SH, BMP, LIPID, LIVER #### [facility] [address] [address] [address] Cali Ortiz Albumin/Globulin [Mass ratio] 1.2 {ratio} Normal [facility] Comment on above: Performed By: #### T SH, BMP, LIPID, LIVER #### [facility] [address] [address] [address] Cali Ortiz ALP [Catalytic activity/Vol] 81 U/L Normal 46-116 [facility] Comment on above: Performed By: #### T SH, BMP, LIPID, LIVER #### [facility] [address] [place] [address] Dr. Cali Ortiz ALT [Catalytic activity/Vol] 15 U/L Normal 14-59 [facility] Comment on above: Performed By: #### T SH, BMP, LIPID, LIVER #### [facility] [address] [place] [address] Dr. Cali Ortiz AST [Catalytic activity/Vol] 15 U/L Normal 15-37 [facility] Comment on above: Performed By: #### T SH, BMP, LIPID, LIVER #### [facility] [address] [place] [address] Dr. Cali Ortiz BILI, CONJUGATED 0.1 mg/dL Normal 0.0-0.3 [facility] Comment on above: Performed By: #### T SH, BMP, LIPID, LIVER #### [facility] [address] [place] [address] Dr. Cali Ortiz Bilirubin [Mass/Vol] 0.4 mg/dL Normal 0.2-1.3 [facility] Comment on above: Performed By: #### T SH, BMP, LIPID, LIVER #### [facility] [address] [place] [address] Dr. Cali Ortiz Globulin (S) [Mass/Vol] 3.4 g/dL Normal [facility] Comment on above: Performed By: #### T SH, BMP, LIPID, LIVER #### [facility] [address] [place] [address] Dr. Cali Ortiz Protein [Mass/Vol] 7.5 g/dL Normal 6.1-8.2 [facility] Comment on above: Performed By: #### T SH, BMP, LIPID, LIVER #### [facility] [address] [place] [address] Dr. Cali Ortiz PROF CHEM 8 (BAS METB)on Anion gap [Moles/Vol] 9.7 mmol/L Normal [facility] Comment on above: Performed By: #### T SH, BMP, LIPID, LIVER #### [facility] [address] [place] [address] Dr. Cali Ortiz Calcium [Mass/Vol] 9.1 mg/dL Normal 8.5-10.1 [facility] Comment on above: Performed By: #### T SH, BMP, LIPID, LIVER #### [facility] [address] [place] [address] Dr. Cali Ortiz Chloride [Moles/Vol] 97 mmol/L Critically low 98-107 The [facility] Comment on above: Performed By: #### T SH, BMP, LIPID, LIVER #### [facility] [address] [place] [address] Dr. Cali Ortiz CO2 [Moles/Vol] 30.0 mmol/L Normal 22.0-30.0 The [facility] Comment on above: Performed By: #### T SH, BMP, LIPID, LIVER #### [facility] [address] [place] [address] Dr. Cali Ortiz Creatinine [Mass/Vol] 0.72 mg/dL Normal 0.52-1.04 The [facility] Comment on above: Performed By: #### T SH, BMP, LIPID, LIVER #### [facility] [address] [place] [address] Dr. Cali Ortiz EGFR-AF WALLISIAN >60 Normal >=60 The [facility] Comment on above: Performed By: #### T SH, BMP, LIPID, LIVER #### [facility] [address] [place] [address] Dr. Cali Ortiz EGFR-NON AF WALLISIAN >60 Normal >=60 The [facility] Comment on above: Performed By: #### T SH, BMP, LIPID, LIVER #### [facility] [address] [place] [address] Dr. Cali Ortiz Glucose [Mass/Vol] 97 mg/dL Normal 74-106 [facility] Comment on above: Performed By: #### T SH, BMP, LIPID, LIVER #### [facility] [address] [place] [address] Dr. Cali Ortiz Potassium [Moles/Vol] 4.7 mmol/L Normal 3.4-5.0 [facility] Comment on above: Performed By: #### T SH, BMP, LIPID, LIVER #### [facility] [address] [place] [address] Dr. Cali Ortiz Sodium [Moles/Vol] 132 mmol/L Critically low 137-145 [facility] Comment on above: Performed By: #### T SH, BMP, LIPID, LIVER #### [facility] [address] [place] [address] Dr. Cali Ortiz Urea nitrogen [Mass/Vol] 7.0 mg/dL Normal 7.0-18.0 [facility] Comment on above: Performed By: #### T SH, BMP, LIPID, LIVER #### [facility] [address] [place] [address] Dr. Cali Ortiz Urea nitrogen/Creatinine [Mass ratio] 9.7 mg/mg Normal The [facility] Comment on above: Performed By: #### T SH, BMP, LIPID, LIVER #### [facility] [address] [place] [address] Dr. Cali Ortiz TSHon 08-19-2021 TSH 1.895 uIU/mL Normal 0.470-4.680 [facility] Comment on above: Performed By: #### T SH, BMP, LIPID, LIVER #### [facility] [address] [place] [address] Dr. Cali Ortiz TSH RANGE SEE BELOW Normal The [facility] Comment on above: Result Comment: <0.3 4 UIU/ml HYPERTHYROID 0.34-5.60 UIU/ml EUTHYROID >5.60 UIU/ml HYPOTHYROID Performed By: #### T SH, BMP, LIPID, LIVER #### [facility] [address] [place] [address] Dr. Cali Ortiz Vital Signs Date Time Vital Sign Value Performing Clinician Samantha disla 08-17-2022 15:28-0400 Diastolic blood pressure 68 mm[Hg] Nas Pocos [facility] 08-17-2022 15:28-0400 Heart rate 78 /min Nas Pocos [facility] 08-17-2022 15:28-0400 SaO2% (BldA) [Mass fraction] 99 % Nas Pocos [facility] 08-17-2022 15:28-0400 Systolic blood pressure 100 mm[Hg] Nas Pocos [facility] 08-17-2022 14:22-0400 Heart rate 75 /min Nas Pocos [facility] 08-17-2022 14:22-0400 SaO2% (BldA) [Mass fraction] 98 % Nas Pocos [facility] 08-17-2022 14:21-0400 Diastolic blood pressure 70 mm[Hg] Nas Pocos [facility] 08-17-2022 14:21-0400 Mean blood pressure 81 mm[Hg] Nas Pocos [facility] 08-17-2022 14:21-0400 Systolic blood pressure 102 mm[Hg] Nas Pocos [facility] 08-17-2022 13:55-0400 Blood Pressure Location Nas Pocos [facility] 08-17-2022 13:55-0400 Diastolic blood pressure 71 mm[Hg] Nas Pocos [facility] 08-17-2022 13:55-0400 Heart rate 70 /min Nas Pocos [facility] 08-17-2022 13:55-0400 Mean blood pressure 81 mm[Hg] Nas Pocos [facility] 08-17-2022 13:55-0400 SaO2% (BldA) [Mass fraction] 99 % Nas Pocos [facility] 08-17-2022 13:55-0400 Systolic blood pressure 100 mm[Hg] Nas Pocos [facility] 08-17-2022 12:11-0400 Respiratory rate 16 /min Nas Pocos [facility] 08-17-2022 12:09-0400 Mean blood pressure 71 mm[Hg] Nas Pocos [facility] 08-17-2022 12:09-0400 Body temperature 96.8 [degF] Nas Pocos [facility] 08-17-2022 12:05-0400 Body temperature 97.7 [degF] Nas Pocos [facility] 08-17-2022 12:05-0400 Mean blood pressure 68 mm[Hg] Nas Pocos [facility] 08-17-2022 12:05-0400 Respiratory rate 22 /min Nas Pocos [facility] 08-17-2022 11:55-0400 Mean blood pressure 78 mm[Hg] Nas Pocos [facility] 08-17-2022 11:55-0400 Respiratory rate 14 /min Nas Pocos [facility] 08-17-2022 11:40-0400 Respiratory rate 18 /min Nas Pocos [facility] 08-17-2022 11:24-0400 Body temperature 97.52 [degF] Nas Pocos [facility] 08-17-2022 06:10-0400 Heart rate 60 /min Nas Pocos [facility] 08-17-2022 06:07-0400 Mean blood pressure 98 mm[Hg] Nas Pocos [facility] 08-17-2022 06:07-0400 Respiratory rate 18 /min Nas Pocos [facility] 08-17-2022 06:07-0400 Body temperature 98.6 [degF] Nas Pocos [facility] 07-29-2022 08:27-0500 Blood Pressure Location Nas Pocos [facility] 07-29-2022 08:27-0500 Diastolic blood pressure 89 mm[Hg] Nas Pocos [facility] 07-29-2022 08:27-0500 Systolic blood pressure 125 mm[Hg] Nas Pocos [facility] 07-29-2022 08:26-0500 Blood Pressure Location Nas Pocos [facility] 07-29-2022 08:26-0500 Body temperature 97.52 [degF] Nas Pocos [facility] 07-29-2022 08:26-0500 Diastolic blood pressure 86 mm[Hg] Nas Pocos [facility] 07-29-2022 08:26-0500 Heart rate 73 /min Nas Pocos [facility] 07-29-2022 08:26-0500 Mean blood pressure 98 mm[Hg] Nas Pocos [facility] 07-29-2022 08:26-0500 Respiratory rate 18 /min Nas Pocos [facility] 07-29-2022 08:26-0500 SaO2% (BldA) [Mass fraction] 100 % Nas Pocos [facility] 07-29-2022 08:26-0500 Systolic blood pressure 121 mm[Hg] Nas Pocos [facility] Encounters Encounter Date Encounter Type Care Provider Facility Start: 07-11-2023 End: 07-11-2023 ambulatory MATT ADAMS Not Available Start: 08-17-2022 End: 08-17-2022 ambulatory Deric Pocubaldo [place] [place]: 08-17-2022 End: 08-17-2022 Admission to same day surgery center Deric Pocubaldo [facility] Start: 07-29-2022 End: 07-30-2022 ambulatory Deric Pocubaldo [place]: 07-29-2022 ambulatory Facility:[id number] Start: 07-29-2022 End: 07-29-2022 Patient encounter procedure Deric Linseyubaldo [facility] Start: 06-28-2022 End: 06-29-[address] JOSE HARRIS Facility:[facility] Start: 03-22-2022 End: 03-22-[address] VIVEK GIPSON Facility:[facility] Start: 02-15-2022 End: 02-16-[address] JOSE HARRIS Facility:[facility] Start: 08-21-2021 Encounter for genera l adult medical examination without abnormal findings DR JOSE HARRIS [facility] Start: 08-19-2021 End: 08-20-[address] JOSE HARRIS Facility:[facility] Start: 08-19-2021 End: 08-20-2021 Encounter for general adult medical examination without abnormal findings DR JOSE HARRIS Facility:[facility] Procedures Date Procedure Procedure Detail Performing Clinician Start: 08-17-2022 Repair of hip Nas Poc os section Nas Pocos Operation on placenta Nas Pocos Payers Date Payer Category Payer Unknown [id number] 2022 Unknown [id number] 1965 Unknown [id number] 2.16.84 [id number] 1965 Unknown [id number] 2.16.84 [id number] 1965 Unknown [id number] 2.16.84 [id number] 1964 Unknown [id number] 2.16.84 [id number] 1964 Unknown [id number] 2.16.8 [id number] 1965 Unknown [id number] 2.16.8 [id number] 1964 Unknown [id number] 2.16. [id number] 1965 Unknown [id number] 2.16.84 [id number] Social History Date Type Detail Facility Tobacco smoking status No Smoking Status Entered [facility] Sex Assigned At Female [facility] Medical Equipment Procedure Code Equipment Code Equipment Origin al Text Equipment Identifier Dates HIP TOTAL ANTERI OR ROBOT ARTHROPLASTY Pocos DONas 08/17/22 Unknown Hip R FDA Start: 08-17-2022 HIP TOTAL ANTERI OR ROBOT ARTHROPLASTY Pocos DO Nas Oconnell 08/17/22 Unknown Hip R FDA Start: 08-17-2022 HIP TOTAL ANTERI OR ROBOT ARTHROPLASTY Pocos DONas 08/17/22 Unknown Hip R FDA Start: 08-17-2022 HIP TOTAL ANTERI OR ROBOT ARTHROPLASTY Pocos DONas 08/17/22 Unknown Hip R FDA Start: 08-17-2022 HIP TOTAL ANTERI OR ROBOT ARTHROPLASTY Pocos DONas 08/17/22 Unknown Hip R FDA Start: 08-17-2022 HIP TOTAL ANTERI OR ROBOT ARTHROPLASTY Pocos DONas 08/17/22 Unknown Hip R FDA Start: 08-17-2022 Functional Status Date Assessment Result Facility 07-29-[address] [facility] Clinical Note 08-17-2022 Note Date & Type Note Facility 08-17-2022 Note PT Evaluation comple chavo with an AMPAC score of 18/24. Pt was able to perform bed mobility with CGA and transfers with SBA. Pt was able to ambulate with FWW with CGA. Pt would be functionally safe to return home with caregiver assist and [facility] to follow [facility] Discharge instructions 08-17-2022 Note Date & Type Note Facility 08-17-2022 Hospital Discharg e instructions Patient Education 08/17/2022 09:28:13 How to Use an Incentive Spirometer How To Use an Incentive Spirometer An incentive spirometer is a tool that measures how well you are filling your lungs with each breath. Learning to take long, deep breaths using this tool can help you keep your lungs clear and active. This may help to reverse or lessen your chance of developing breathing (pulmonary) problems, especially infection. You may be asked to use a spirometer: After a surgery. If you have a lung problem or a history of smoking. After a long period of time when you have been unable to move or be active. If the spirometer includes an indicator to show the highest number that you have reached, your health care provider or respiratory therapist will help you set a goal. Keep a list (log) of your progress as told by your health care provider. What are the risks? Breathing too quickly may cause dizziness or cause you to pass out. Take your time so you do not get dizzy or light-headed. If you are in pain, you may need to take pain medicine before doing incentive spirometry. It is harder to take a deep breath if you are having pain. How to use your incentive spirometer 1.Sit up on the edge of your bed or on a chair. 2.Hold the incentive spirometer so that it is in an upright position. 3.Before you use the spirometer, breathe out normally. 4.Place the mouthpiece in your mouth. Make sure your lips are closed tightly around it. 5.Breathe in slowly and as deeply as you can through your mouth, causing the piston or the ball to rise toward the top of the chamber. 6.Hold your breath for 3 5 seconds, or for as long as possible. If the spirometer includes a coach driver indicator, use this to guide you in breathing. Slow down your breathing if the indicator goes above the marked areas. 7.Remove the mouthpiece from your mouth and breathe out normally. The piston or ball will return to the bottom of the chamber. 8.Rest for a few seconds, then repeat the steps 10 or more times. Take your time and take a few normal breaths between deep breaths so that you do not get dizzy or light-headed. Do this every 1 2 hours when you are awake. 9.If the spirometer includes a goal marker to show the highest number you have reached (best effort), use this as a goal to work toward during each repetition. 10.After each set of 10 deep breaths, cough a few times. This will help to make sure that your lungs are clear. If you have an incision on your chest or abdomen from surgery, place a pillow or a rolled-up towel firmly against the incision when you cough. This can help to reduce pain from coughing. General tips When you become able to get out of bed, walk around often and continue to cough to help clear your lungs. Keep using the incentive spirometer until your health care provider says it is okay to stop using it. If you have been in the hospital, you may be told to keep using the spirometer at home. Contact a health care provider if: You are having difficulty using the spirometer. You have trouble using the spirometer as often as instructed. Your pain medicine is not giving enough relief for you to use the spirometer as told. You have a fever. You develop shortness of breath. Get help right away if: You develop a cough with bloody mucus from the lungs (bloody sputum). You have fluid or blood coming from an incision site after you cough. Summary An incentive spirometer is a tool that can help you learn to take long, deep breaths to keep your lungs clear and active. You may be asked to use a spirometer after a surgery, if you have a lung problem or a history of smoking, or if you have been inactive for a long period of time. Use your incentive spirometer as instructed every 1 2 hours while you are awake. If you have an incision on your chest or abdomen, place a pillow or a rolled-up towel firmly against your incision when you cough. This will help to reduce pain. This information is not intended to replace advice given to you by your health care provider. Make sure you discuss any questions you have with your health care provider. Document Released: 09/19/2007 Document Revised: 06/01/2018 Document Reviewed: 03/22/2018 [employer] Patient Education 2019 [employer]. 08/17/2022 09:28:13 Post Op Patient Instructions - FT (CUSTOM) 08/10/2022 07:10:49 [place] - Hip Replacement Arthroplasty, Revised 07/14/11. (Custom) [place], [place] [facility] DISCHARGE INSTRUCTIONS HIP REPLACEMENT ARTHROPLASTY INCISION CARE: Continue the daily dressing care to the hip as instructed in the hospital for 7 days postoperatively. The dressing will then be changed and worn an additional 7 days. You may then discontinue the dressing changes. The dressing over the upper pelvis area may be reoved postoperative day #3 and left open to the air. Please notify the office if any increase in redness, tenderness, drainage, fever, or wound separation is noted. DISLOCATION PRECAUTIONS: Avoid external rotation and hyperextension of the operative hip. No straight leg raises. MEDICATIONS: You may resume your home medications at the time of discharge. Tke 1 Ecotrin Aspirin (81mg) twice daily with food for an additional month. [facility] Discharge Instructions for Hip Replace.Page 2 Medications Cont... Pain medication has been prescribed as well. You may continue to use the pain medication every four hours as needed. Any narcotic pain medication can cause side effects including stomach upset, constipation, or light-headedness. You should not drive or operate machinery, or use alcohol while using the narcotic pain medication. You should not use other pain medications with this prescription pain medication unless further directed by your physician. PHYSICAL THERAPY DISLOCATION PRECAUTIONS: Continue the range of motion and strengthening exercises initiated in Physical Therapy in the hospital. Avoid external rotation and hyperextension of the operative hip. No straight leg raises. Continue weight bearing, as ordered, to the operated hip for four to six weeks as directed in Physical Therapy. This will be with the use of a walker or crutches. After four or six weeks you may then progress to the use of one crutch, or a cane. A quad-cane is preferred as this is more stable. Physical therapy as begun in the hospital will continue at home, possible with the human resources executive assistant of Home Health Physical Therapy or in the hospital as an outpatient. When you have become independent with the physical therapy program, this will then be discontinued as a supervised program and you will be instructed to continue the physical therapy exercises at home. DRIVING: Do NOT Drive FOLLOW-UP OFFICE VISIT: 4 weeks Postop Nas Hebert, DO [facility] [address] [place] [address] [id number] Reviewed: 08-28 Revised: 06/03 Follow Up Care 07/15/2022 10:00:47 With:Nas Hebert Address: [address] [place] [address]- Business (1) When:09/17/2022 08:30:00 Comments:Call for any problems.Keep scheduled appointment [facility] History and physical note 08-12-2022 Note Date & Type Note Facility 08-12-2022 Note [id number] #[id number]:[facility] Clinical Note 06-28-2022 Note Date & Type Note Facility 06-28-2022 Note PROCEDURE: XR HIP RT 2 3V W PELVIS HISTORY: Pain in right hip joint , chronic COMPARISON: None. FINDINGS: BONES:Marked narrowing of right hip joint space with [id number] articulation and small subchondral cysts and sclerosis. Small periarticular degenerative osteophytes. No fracture, dislocation, or bone lesion. SOFT TISSUES:No visible soft tissue swelling. EFFUSION:None visible. OTHER: Negative. IMPRESSION: 1. Marked degenerative joint disease of right hip. Electronically authenticated by: ALEAH LONDON Date: 2022-06-28 10:24 [facility] Evaluation + Plan note Note Date & Type Note Facility Evaluation + Plan note Future Appointments Appointment Date:08/17/2022 09:00:00 AM Scheduled Provider: Location:[facility] Surgical Services Appointment Type:Surgery FT [facility] Hospital course Narrative Note Date & Type Note [facility] Hospital course Narrative No data available for this section [facility] Hospital Discharge instructions Note Date & Type Note [facility] Hospital Discharge instructions No data available for this section [facility] Progress note Note Date & Type Note Facility Progress note No data available for this section [facility] Summary Purpose Family History No Family History Records FoundNo Family History Records FoundNo Family History Records FoundNo Family History Records Found Advance Directives No Advanced Directives Records FoundNo Advanced Directives Records FoundNo Advanced Directives Records FoundNo Advanced Directives Records Found Additional Source Comments INFORMATION SOURCE (unrecogn ized section and content) DATE CREATED AUTHOR 07/01/2022 [facility] DATE CREATED AUTHOR AUTHOR'S ORGANIZ ATION 08/25/2022 Karri Lee [facility] DATE CREATED AUTHOR AUTHOR'S ORGANIZ ATION 09/02/2022 [facility] DATE CREATED AUTHOR AUTHOR'S ORGANIZ ATION 07/11/2023 [facility] EPIC Patient Care team informatio n (unrecognized section and content) Personnel Name: JOSE HARRIS MD Address: Address: [address] [place] [address] Personnel Name: JOSE HARRIS MD Address: Address: [address] [place], [place] [address]HERSON Royce [address] FOR RECORDS PERTAINING TO PATIENTS WHO ARE OR HAVE BEEN ENROLLED IN A CHEMICAL DEPENDENCY/SUBSTANCEABUSE PROGRAM, SOME INFORMATION MAY BE OMITTED. This clinical summary was aggregated from multiple sources. Caution should be exercised in using it in the provision of clinical care. This summary normalizes information from multiple sources, and as a consequence, information in this document may materially change the coding, format and clinical context of patient data. In addition, data may be omitted in some cases. CLINICAL DECISIONS SHOULD BE BASED ON THE PRIMARY CLINICAL RECORDS. [facility] [employer] [facility]. provides no warranty or guarantee of the accuracy or completeness of information in this document.
== END 2023-07-14 09:37 | disposition home or self-care (01) ==
LOC: RAD 09:37
PROVIDERS: PCP Family Medicine; Visit Provider Physician Assistant
DX: M85.80 Other specified disorders of bone density and structure, unspecified site (principal); Z78.0 Asymptomatic menopausal state
CPT/HCPCS: 77080

== ENCOUNTER 2024-02-23 10:06 | Outpatient (OUT) | payer OTHER, SELFPAY ==
--- NOTE | 2024-02-23 10:11 | MM_ITS ---
Patient Name: AMANDA OAKES MR#: [id number] : 1965 Exam Date: 02/23/2024 Ordering Doctor: DAT Arroyo . RADIOLOGY REPORT PROCEDURE: MM TOMOSYNTHESIS SCREENING BI COMPARISON: MM TOMOSYNTHESIS SCREENING BI, 02/21/2023. MG MAMM SCREEN 3D OCTAVIO CAD, 02/15/2022. INDICATIONS: Screening Calculator Name NCI Breast Cancer Risk Assessment Tool 5 Year Breast Cancer Risk 1.00% Lifetime Breast Cancer Risk 5.30% Personal Breast Cancer No Personal Ovarian Cancer No Treatments None Family Cancers None LOCATION: [facility] BREAST COMPOSITION: There are scattered areas of fibroglandular density. FINDINGS: DIAGNOSTIC CATEGORY 1--NEGATIVE. NO CHANGE FROM COMPARISON ASSESSMENT. Scattered benign-appearing calcifications are present. Scattered benign-appearing lymph nodes are present. RIGHT BREAST: No significant suspicious finding. LEFT BREAST: No significant suspicious finding. RECOMMENDATIONS: ROUTINE MAMMOGRAM AND CLINICAL EVALUATION IN 12 MONTHS. PLEASE NOTE: A NORMAL MAMMOGRAM DOES NOT EXCLUDE THE POSSIBILITY OF BREAST CANCER. A CLINICALLY SUSPICIOUS PALPABLE LUMP SHOULD BE BIOPSIED. Dictated by: Nas Robb MD on 02/23/2024 at 12:20 Approved by: Nas Robb MD on 02/23/2024 at 12:21
--- OUTSIDE RECORDS SUMMARY | 2024-02-23 10:15 | XMS_ITS | CCD ---
Author Organization [facility] InformFormerly [facility] Care Team Providers Care Ball Machine Operator Name Role Phone STEVEN, DR JOSE Oconnell [...] NADERER, DR JOSE Oconnell Primary Care Unavailable West, DR Lovell Consulting Unavailable NADERER, DR JOSE Oconnell Consulting Unavailable BRANDAN, DR DOYLE Admitting Unavailable BRANDAN, DR DOYLE Attending Unavailable NADERER, DR JOSE Oconnell Primary Care Unavailable BRANDAN, DR DOYLE Consulting Unavailable NADERER, JOSE Primary Care Physician Pocos, Lore Oconnell Admitting Unavailable Pocos, Lore Oconnell Referring Unavailable Pocos, Lore Oconnell Attending Unavailable Pocos, Lore Oconnell Referring Unavailable Pocos, Lore Oconnell Attending Unavailable Pocos, Lore Oconnell Admitting Unavailable ANGIE, MATT Attending Unavailable POCOS, LORE Oconnell Referring Unavailable POCOS, LORE Oconnell Attending Unavailable NADERER, JOSE Attending Unavailable Allergies Allergy Classification Reported Allergen(s) Allergy Type Date of Onset Reaction(s) Facility (3 sources) Sulfamethoxazole / Trimethoprim; Translations: [sulfamethoxazole-tri methoprim] Drug Allergy Rash [facility] Medications Current Medications Medication Drug Class(es) Dates Sig (Normalized) Sig (Original) aspirin 81 mg delayed release oral tablet (1 source) Platelet Aggregation Inhibitor, Nonsteroidal Anti-inflammatory Drug Start: 08-17-2022 take 1 tablet by mouth twice daily aspirin 81 mg Oral EC Tab 81 mg = 1 tab(s), Oral, BID, # 60 tab(s), Refills(s) 0, Pharmacy: [facility], 158, cm, 07/29/22 12:08:00 EST, Height/Length [...] day(s), # 4 cap(s), Refills(s) 0, Pharmacy: [facility], 158, cm, 07/29/22 12:08:00 EST, Height/Length [...] constipation, # 40 cap(s), Refills(s) 0, Pharmacy: [facility], 158, cm, 07/29/22 12:08:00 EST, Height/Length [...] 7days, # 40 tab(s), Refills(s) 0, Pharmacy: [facility], 158, cm, 07/29/22 12:08:00 EST, Height/Length [...] surgeon request for post-op pian management.. Normal [facility] Comment on above: Result Comment: Elec tronically Signed By: Albaro Pink Jr, DO\.br\Date and Time Signed: 08/21/22 09:09 EDT Progress Note-Physicianon Progress Note-Physician Patient: AMANAD OAKES Age: 57 years Sex: Female : [...] meets criteria ( To home ). Normal [facility] Comment on above: Result Comment: Elec [...] constipation, # 40 cap(s), Refills(s) 0, Pharmacy: [facility], 158, cm, 07/29/22 12:08:00 EST, Height/Length Dosing, 58.6, kg, 07/29/22 12:08:00 EST, Weight Dosing aspirin 81 mg Oral EC Tab: 81 mg = 1 tab(s), Oral, BID, # 60 tab(s), Refills(s) 0, Pharmacy: [facility], 158, cm, 07/29/22 12:08:00 EST, Height/Length Dosing, 58.6, kg, 07/29/22 12:08:00 EST, Weight Dosing cefadroxil 500 mg Cap: 500 mg = 1 cap(s), Oral, q12hr, X 2 day(s), # 4 cap(s), Refills(s) 0, Pharmacy: [facility], 158, cm, 07/29/22 12:08:00 EST, Height/Length Dosing, 58.6, kg, 07/29/22 12:08:00 EST, Weight Dosing oxyCODONE 5 mg Tab: 5 mg = 1 tab(s), Oral, As Directed, 1-2 po q4-6 hrs prn pain Dx: M16.11, Z96.641 Duration: 7days, # 40 tab(s), Refills(s) 0, Pharmacy: [facility], 158, cm, 07/29/22 12:08:00 EST, Height/Length Dosing, 58.6, kg, 07/29/22 12:08:00 ES... Documented Medications Documented carvedilol 3.125 mg Tab: 3.125 mg = 1 tab(s), Oral, BID, Arrhythmia meloxicam 15 mg Tab: 15 mg = 1 tab(s), Oral, Daily, Pain multivitamin: 1 cap, Oral, Daily, Prophylaxis Problem list: All Problems Arrhythmia / SNOMED CT 0575016937 / Confirmed Histories Past Medical History: No active or resolved past medical history items have been selected or recorded. Family History: No family history items have been selected or recorded. Procedure history: delivery (5064306333). Operation on placenta to removal ([id number]). Social History Social & Psychosocial Habits Alcohol 07/29/2022 Risk Assessment: Low Risk 07/29/2022 Use: Current Type: Wine Frequency: 1-2 times per month Substance Ab (more content not included)... Normal [facility] Comment on above: Result Comment: Elec tronically Signed By: Albaro Pink Jr, DO\.br\Date and Time Signed: 08/21/22 09:09 EDT IntraOperative Documentson 0 08-20-2022 IntraOperative Documents [id number] 9#1.00CD:127 [facility] Coding Summary.on 08-19-2022 Coding Summary. CD:[id number] Ww+PGhlYWQ+EG0JMLAxP 10vgCTuiA4bE7EJWIxPW ywgQVBQTElOSyIgbmFtZ N4uoNFzGELu IC8+NF3zMGVuUccgzDBv w3U3fRR8Q75xzt5qZAnc kXG8ACGuTiUioyccy9id vAa1ECzpGnnnKfCm OSOcaM28OBC0wP21Uj42 sDLohBCeq0fooEt9RoZs NJHsSPU6fKjjOOwgi6Yu YMVhT04fiNJaz2B8 IGNvbGxhcHNlOyBlbXB0 qF1zNPpundtke5mzgqrv Fuy7wt18mVGje5C6vTN9 N6JlkoQ2LTUffQGt MiqfjHDNdN3lhhhdl8ys yddaSlYkZUAaNOb7GLn9 PPBlyLjcVbDoPU32COK2 ALRxekBkO9RdYPHd oQaiRnM1j1U9Xw2SI8MK JijuI8IBPBHPAYcebIM+ AN06nf65R1FiHrrpKhb6 XMHiYFS8gWO6sE0s NZOuTHzcw4V5jID5U2Oo olNboy3lj6zrAJVlYOzn F16tdDIcp4Q8NRQliWB6 GRAfuQnmRiHhsB54 Oyc+NYKqaMhaz3TdFeen n8aad8dxaUg6EfqqEQBl ruIgdWjwYTB7a0YgZi3t PQVrgCR2hKC8tF2d PvHrTiN4VHrbJ499XbMu pYFsFyxgI85mL3QbePY+ ROKcGwy2KNMzbLqpMP2p G7YxVXMhllapoYQg qMsdUS3tPIZgjzmlCKFz rC4lKQRfG1c8UyTuVdI9 TQfvK5IuBQTjrvpuMi78 pM9jNgPqMsV8ZRki C5EyshW8ZWKwvCObBUlf KGJ8B39ir5Y4LLYlXGOp HJS4aYJ9eN3uxClirhlk bGVmdDsgdmVydGlj IQhsAHbgX274WIRcpTbz PkNvZGluZyBEYXRlOiAg MDMvMzAvMjAyMzwvdGQ+ QYIsCBG8tKdcWOAr uTExPDqdBm7zaXrlfPzm DX0rHYLwzwjsWQWvvD0f UVWkaYGzhBmmBU0hYSQq scjfl952NyOhZKM5 MCTzwHLxC2FrzG6nHfXh ITWlRIXcW5EwuTVrADcw S630OWpiDyX5AGNmzeYr V7BvUIYrpHbbSrD8 z6K5Bd5Yu9MmjipcM9Nj tEBaXsYiSbtnVXb2H9Ri PjwvdHI+ZX54DRItGJ67 FZp1SEP8mTqpZOhh VVIqM1DoaN6zKgLiLQUa ZGRkOyc+PHRhYmxlIHdp ZHRoPScxMDAlJyBzdHls QG4mZh6mHDAyEDAo iXotuAYvVdLpp6ggMTBr JDrfKZ4ypCzhZ2VagYC5 EYDdf1k6Vz13E44iW8Ph dXA+PFVjwAY2lID0 nJ4yFfWdMuN8RDdlK189 DqOgoWZdTcdtt1scf0zh xXf6GuX1DAHzcdZngXfu VLO8b9TkKu87M55s IHdpZHRoPSIxNSUiIHZh nTyxtl8beG5nRm9+PGNv yFU6vPC7iU7wXvYuMvR7 XCqvS775EnOeaHMo Lchhs3fca1ptvCn1TrLs JDRodvJubPufVCZ9e5Fw Xc46W8YpjObud6FgGek0 mh57hKQqr9Y5sQQ3 W6InTYQsgwhtuXGeyKpw AT5dRBPbtszrTXRxwA2l FYSfZ3t3UnWwAoE3QWvu D1YvcgN0KHKudECd AJIztZULaB2dsltue5gd qjrvXaOuPOXmXXq9QMl6 DQNgwOiaJkYkUYG8SiJ2 NPR0kOMaxR4xkDic kbdfjL9dKir+FNJ3kIBy gKAQAN6eUhmwnUA+PHRk QEM2eLhrZCchPUCyjL6f QDPjL2b3FkEfAbV6 FKuwR8LqzoJ9URQmvFKv HXEdwCASkS8hbaqtl9xh ukcwEcRsNZDuRWn4YDw0 LWFsaWduOiBsZWZ0 JgG7EUT2lWNmjM8abHnf jgyjaZ0cMaf+QmlydGgg NDG3PYb4G9OkZwu0JXWo sYwpKP8gfALrWUpl Nj7edVwisTqdHG2hTFLh zfraq314SfDze2mvDLWi nRVsLUcyGYV0E42ak5I5 KVSeSOYpAVH1zKA2 vD9hfGxetahlsZUetZzu qyNgfHnsDDzrGYwlT665 WDTxiQsxWkGoBFx4V7Fk Jyg9QLTffUggAO2r wTTgBIhdLg4ajGjpyWwo EP6bVMFcdkmnx835BnSy l1jeDZLpgHOeBGzgTDC1 L13yn8C7DKSkNIUj PZT7hAQ1vX1xvPdbbxtu bGVmdDsgdmVydGljYWwt ZWtrA028ARRsdYzfQsKm zVr0V0LsLrv3XWZu yEqaXO0olASkLMbzWr8i nFmrrKetKZ4ySUSzsilh a372CaDba4elZGTkkAGx EJfhESK1L74kg3B0 IPGwROCqUYG6oRB5pH2e bGlnbjogbGVmdDsgdmVy eAoxLCkoQChvK473TJJc cDsnPlBhdGllbnQg ZUnpCWx7K9SbFbznzXJ+ AG50ENZsMP37yRRqnKZp p4givYw7SsFvIOZqKRK9 bAhrJHfnd4GzOEIu Z81itIXtq9Z2HURduQus uYRlEqBqiDR6bW6qRYyn xvihq0fexmbbQfjdl1mu mb06iW50T93nISuz ZHRoPSIzMCUiIHZhbGln uk5nhB2gNy5+PGNvbCB3 xBW9yQ6oMLQkLeC6HBfn H030QsWmlDNnNavx n7kpv4hbuBg0IbY6GGLq hcFpzOanCYN7x9XpDc42 N75oYYkaRMTkACGhWOVb DJUcyGvhjq4pqL8f Ii8+CVGwyKF0nZD7kP0a NnOyGwS6QRzmM518RnNb qBUjFbemI23sX0GzyWW+ MZZwOaw5MSHxbXcw FV3xnYSqHMygIc3fNIA6 QrZmOsTiFFtnW6TvQWCb aobnxkbobJM9XUTcWSEn yW45Ne4igZypJLDj gKLXmT7wsimak5bmophk PvIlSBMcQTt4CCj3MDFp pWtaSyRuBYZ4OcK6ZKU9 xGZtxU7nnLhojsap tO0nM2UtMYNfzmfvFf98 yJ1rDnIcDgG2ZJhdSwe+ B8WFC0VQEQBXAfRCYJk3 S9OwSfi6GSMjrJjq DV5cjPYeGRqlSq2bxCdw jWupCL8sORVqvytpZBFg lP1sQXGekAHyjUmbZO4g YIRnqgmbp965EkIh TXJ5EVAhmEFsL7OssD9d ZoPiTTMmIKKdO3GqdWMr ZGugJ902TGyyQwS1ZMGa iuFeF2XzAXWvxNpj CiS5g3K1Gh6bCP7aXL0y BLJ1OT92IY98rUBix6H0 tHR4Q0ZbJVEoyopljrel vRL5DRIxUFGtnH26 dEVnNSevSd2wj5Y2u506 HLSfPKBepO46Mp7rqTxo HTLphQQIwZ0vmiqla3kv cjogIzAwMDAwMDt0 FLx5TMVdeAauNkJkRNM7 GiQ6IOY5fFZbsC7zyCcn yslsbB9sXcq+NTggWWVh qxN5Q6HrYdy1KFGc yAamEG3vaGFaWNgpXe0i lVwqsKfhBC0fTPBdksgq ZQCwhL2eUOZlvBXkmDls WJ1nOYRprypum015 VhBpECO3JXEhdBOwL7Tp hS6vNnKuCCLtDRGwV8Hy fWBvQQitU553UQxkLrG8 WBTpbkJcR3HeJTCc xHjaLeZ6q0X4By1MNQ0q fUC4E5ChCtp2QZCrnAbb LP2laFDxLTvuXz9mhKxb bAwbMI0wLWTpghbi ESOttE0gEMKjpRYwcQpr LL7eIOIdtciyi985CkZm UFI5CIZpoDAsE4VsnI2o TlRhAZSsIDBtZ9Tp mWIoXDwaT672JKlvOwO4 PJFclqNdH1VrHHBzmJgc IfL5r5V5Gs1DnUV9kGD8 h1Q3S2KihGAmROA3 MBD6cxqleao6U2FiRilp dHI+ES40YUGzXS64jTOs yGKdt1pblZl0VuQkDHRe TLJ7gZbbNTnjz3Wo OYFpP95jhYVvr4H1GBNz hSltzZXuPoRsqEI2fG2g FOrcxfgmb6epysggBtwp r6eudk98fW68B83c IHdpZHRoPSIzMCUiIHZh aZuacq6zxN2aPb0+PGNv pKD5nUZ2xX5fQqQvGoN2 ZCvnE319NeMhzBFh Xyqtw2jnh0gbtEx6EqYe QYXbowOcrSkhAHG9e0Re Mf20Q76tUHzzJAEoRJNx MOUfZKSwgUrfyd7f iR4vNr3+FI2dp2sqvi70 sV24dOK+WJSbEDO2yCeg PVasJEQjkM6vKVwqNdL1 MFRkNfTzeC41iCDv BTtnWy9dgPeeaDptFY0r EXCyncemp467WoMpk1vm QEJflYTaQOehGCD2P55c b0N2SMGyIGHfUMR8 iKI9tY3fsDiyskfrrVLk dDsgdmVydGljYWwtYWxp I812HJVxmYqgChYakNRn Z0ggcwIUSV8dOmea dGQ+IKJlITY5aHjqCKvb TZFguZ5oQCDyY6b0ZyYh WoT9MSehP4WkqaG5XNXu tYHxTREacNMLhB9w tunkh5otuhxxBsTbZHDm TRo0JJb7SUMcxBokGdEw JOA5UfW7TPT9oNEsyJ5e zTrdigghjG4dZpi+ RklOOjwvdGQ+PHRkIHN0 gAfnSEywPLTidK7tZTJq H4m8MvIxPjL3IJdcU9Hs qsM7QAQawZJdGJIy mEIBeK3iftpie4weecvu XvWlNMSaXDf8OOl3JZCj gZwkCaHaXKM0GyQ3JWB1 aMOwrS3dtZqfessc eB3vQkb+TVJOOjwvdGQ+ IGAtRBU5yHujPJuhVSWw eM7oHMHrJ6y5UvCcQbK9 VHtbI8BxjhD0CTXv yGPcPXEfjGGHoL7dudvh h7ddptmhNsAyJOCrRNc6 JLl3PUMetHguNqYnFSE4 ZkV2JNR8jLCcsH7a tKynisnceY8tRcv+UGF5 SWY5SY12JP82Q7IbObed dGFibGU+PHRhYmxlIHdp ZHRoPScxMDAlJyBz yCeqPX6s (more content not included)... Normal [facility] Main OR Intraoperative Recor don 08-19-2022 Main OR Intraoperative Record IntraOp Document Type FT Summary Primary Physician: Lore Hebert DO Finalized Date/Time: 08/19/22 10:54:53 Pt. Name: LOGANAMANDA./Sex: 1965 Female Med Rec #: [id number] Physician: Lore Hebert DO Financial #: [id number] Pt. Type: A Room/Bed: Admit/Disch: 08/17/22 05:40:33 - 08/17/22 15:55:00 Institution: Case Times FT Entry 1 Patient Times In Room 08/17/22 08:42:00 Out Room 08/17/22 11:20:00 Procedure Times Start 08/17/22 09:21:00 Stop 08/17/22 11:15:00 Anesthesia Times Start 08/17/22 08:42:00 Stop 08/17/22 11:20:00 Block Timeout w08/17/22 07:58:00 Anesthesia Last Modified By: Екатерина GREGORIO, [facility] Kourtney 08/17/22 11:41:54 General Comments: Unilateral right hip nerve block done by Dr. Pink at 0908-2023 with JG Pierre assisting, HR 66bpm, SpO2 [...] Entry 2 Entry 3 Case Attendee Lis REFUELER, Darell Hebert DO, Lore Roy RN, Beth Velasquez Role Performed REFUELER Surgeon - Primary Staff - Other Time [...] Dash Arrington RN, Adam Hedrick Role Performed Financial Foundations Associate - Primary Financial Foundations Associate - Primary Scrub - Primary Time In [...] 9 Case Attendee Gregg RN, Byron Marrero 4 H YOUTH DEVELOPMENT SPECIALIST, Stacia Lane RN, Sun Oconnell Role Performed Staff - Other 4 H YOUTH DEVELOPMENT SPECIALIST/SA Staff - Other Time In 08/17/22 08:42:00 [...] Attendee Michelle Ro Chelsea R Role Performed Communications Consultant Communications Consultant Time In 08/17/22 08:50:00 08/17/22 10:29:00 Time Out 08/17/22 09:20:00 08/17/22 10:49:00 Procedure HIP TOTAL ANTERIOR HIP TOTAL ANTERIOR ROBOT ROBOT ARTHROPLASTY(Right) ARTHROPLASTY(Right) Comments Last Modified By: Екатерина GREGORIO, Dash Willams RN, Dash Oconnell 08/17/22 11:41:57 08/17/22 11:41:57 General Comments: Kelechi Hand and Eve rowell, also in attendance. JG Verdedevelopmental electronics assembler Protocols FT Pre-Care Text: Implements protective measures [...] 08:20:00 Outcomes Met? Yes Last Modified By: Екатерина GREGORIO, Dash Oconnell 08/17/22 09:52:02 Post-Care Text: The patient is free from signs and symptoms of injury caused by extraneous objects Allergy Information FT Pre-Care Text: Verifies allergies Entry 1 Allergies Reviewed? Yes Allergies Reviewed Self/Patient With Outcomes Met? Yes (more content not included)... Normal [facility] Blood Bank Slipon 08-18-2022 Blood Bank Slip [id number] #1.00CD:127 [facility] Consent for Anesthesiaon Consent for Anesthesia [id number] 2#1.00CD:127 [facility] Discharge Instructionson Discharge Instructions [id number] 8#1.00CD:127 [facility] IntraOperative Documentson 0 08-18-2022 IntraOperative Documents [id number] 4#1.00CD:127 [facility] IntraOperative Documents [id number] 0#1.00CD:127 [facility] Operative Reporton Operative Report SURGERY DATE: 08/17/2022 WORKERS COMPENSATION ANALYST: Stacia Marrero CST PREOPERATIVE DIAGNOSIS: Right hip [...] arthrosis. Total hip arthroplasty is done with yazdanism of limb stability, alignment and length. The patient did tolerate the procedure well under spinal anesthetic. The [employer] robotic platform was helpful. The fascia iliaca [...] patient is then appropriately positioned on the [place] table. The boots are placed in the [...] femoral janis (more content not included)... Normal [facility] Comment on above: Result Comment: Elec tronically Signed By: Lore Hebert DO\raciel\Date and Time Signed: 08/18/22 07:04 EDT Preoperative Documentson Preoperative Documents [id number] 2#1.00CD:127 Normal [facility] XR Hip 1 View Right + [...] post complete right hip replacement. Ordering Provider: Lore Hebert FINAL REPORT Dictated: 08/18/2022 4:32 pm Juventino Wiseman MD, V. Signed (Electronic Signature): 08/18/2022 4:32 pm Signed by: Juventino Wiseman MD, V. Transcribed by: ANSHU Technologist: SAKINA Technical Comments Radiation Dose: Ka,r in mGy = na DAP = na Normal [facility] ABO/Rhon 08-17-2022 ABO/Rh Negative Invalid Interpretation Code [facility] Comment on above: Performed By: #### 2 [id number], [id number], [id number], [id number] ####[facility] [address] [place] [address] ABO/Rh History Checkon 08-17 ABO/Rh History Check Verified Hx Blood Type Normal [facility] Comment on above: Performed By: #### 2 [id number], [id number], [id number], [id number] ####[facility] [address] [place] [address] ABSCon 08-17-2022 ABSC Gel Interp Negative Normal [facility] Comment on above: Performed By: #### 2 [id number], [id number], [id number], [id number] ####[facility] [address] [place] [address] BLOOD BANKOrdered By: Denver Wren on 08-17-2022 ABO/Rh Interp Negative Invalid Interpretation Code [facility] BB Subsection ABSC Gel Interp Negative (08/17/22 6:30 AM) Normal [facility] BB Subsection Blood Bank ID#on 08-17-2022 BBID# [id number] Invalid Interpretation Code [facility] Comment on above: Performed By: #### 2 [id number], [id number], [id number], [id number] ####[facility] [address] [place] [address] Consent for Treatmenton 07-22 Consent for Treatment [id number] #1.00CD:127 Normal [facility] H&P Updateon 08-17-2022 H&P Update [id number] #1.00CD:127 Normal [facility] H&P Update [id number] #1.00CD:127 Normal [facility] Comment on above: Other Comment: NEED A GOLD FORM Inpatient Patient Summaryon 08-17-2022 Inpatient Patient Summary [facility] [address], [place] [address] [facility] Clinical Discharge Instructions PERSON INFORMATION Name: AMANDA OAKES PHYSICIANS Admitting Physician: Lore Hebert DO Attending Physician: Lore Hebert DO PCP: STEVEN CHAVARRIA, JOSE Discharge Diagnosis: Comment: PATIENT EDUCATION INFORMATION Instructions: How to Use an Incentive Spirometer; Post Op Patient Instructions - FT (CUSTOM); [place] - Hip Replacement Arthroplasty, Revised 07/14/11. (Custom) Medication Leaflets: Follow up: With: Address: When: Lore Hebert [address] [id number] [facility] (1) 09/17/2022 8:30 AM Comments: Call for any problems. Keep scheduled appointment MEDICATION LIST New [facility], [address] [place], [place] [id number], [phone] aspirin (aspirin 81 mg Oral EC Tab) [...] By Mouth every day. Comment: Epifan[facility] Main OR PACU I Recordon 07-22 Main OR PACU I Record PACU Phase I Document Type FT Summary Primary Physician: Lore Hebert DO Finalized Date/Time: 08/17/22 13:06:58 Pt. Name: MEG OAKESRoyce Sullivan/Sex: 1965 Female Med Rec #: [id number] Physician: Lore Hebert DO Financial #: [id number] Pt. Type: A Room/Bed: 09/20 Admit/Disch: 08/17/22 [...] Signed By: Leni Clark RN 08/17/22 13:06 [facility] Main OR Preoperative Recordo n 08-17-2022 Main OR Preoperative Record PreOp Document Type FT Summary Primary Physician: Lore Hebert DO Finalized Date/Time: 08/17/22 10:03:41 Pt. Name: VIOLETTEAMANDA/Sex: 1965 Female Med Rec #: [id number] Physician: Lore Hebert DO Financial #: [id number] Pt. Type: A Room/Bed: [facility] Admit/Disch: 08/17/22 05:40:33 - Institution: [...] Signed By: Dash Willams RN 08/17/22 10:03 [facility] Monitor Recordon 08-17-2022 Monitor Record [id number] 0#1.00CD:127 Normal [facility] Monitor Record [id number] 8#1.00CD:127 Normal [facility] Outpatient Surgery Discharge Instructionon 08-17-2022 Outpatient Surgery Discharge Instruction [facility] [address], [place] [address] Patient Discharge Instructions PERSON INFORMATION Name: AMANDA OAKES Date of : 1965 Current Date: 08/17/2022 09:28:15 PHYSICIANS Admitting Physician: Lore Hebert DO Discharge Diagnosis: AMANDA OAKES has been given the following list of follow-up instructions, prescriptions, and patient education materials: IF UNABLE TO CONTACT YOUR PHYSICIAN AND YOU FEEL IT IS AN EMERGENCY, GO TO THE NEAREST EMERGENCY ROOM OR CALL 911 I, AMANDA OAKES, have received the attached patient education materials/instructio ns and have verbalized understanding: May we do a follow up call? Yes No I was present when discharge instructions were given Patient Signature Date Clinican/Nurse Signature Date Follow up: With: Address: When: Lore Hebert [address] [place], [place] [id number] Business (1) 09/17/2022 8:30 AM Comments: Call for any problems. Keep scheduled appointment Pharmacy Information: You may receive a survey from [facility] asking you to rate your care experience. Your feedback is important and will help us understand what we do well and how we can improve the quality of care we provide to you, your loved ones and our community. It?s an honor to serve you. Thank you for choosing [facility] HERE ARE THE MEDICATION CHANGES THAT OCCURRED DURING YOUR HOSPITAL STAY New Medic[facility], [address] [place], [place] [id number], [phone] aspirin (aspirin 81 mg Oral EC Tab) [...] possible. ? If the spirometer includes a living coach indicator, use this to guide you in [...] each repet (more content not included)... Normal [facility] Outside Recordson 08-17-2022 Outside Records [id number] #1.00CD:127 Normal [facility] Patient Education - Texton 0 08-17-2022 [...] possible. ? If the spirometer includes a living coach indicator, use this to guide you in [...] Reviewed: 03/22/2018 Elsevier Patient Education ? 2020 [employer]. [place], [place] [facility] DISCHARGE INSTRUCTIONS HIP REPLACEMENT [...] is n (more content not included)... Normal [facility] Progress Note-Physicianon Progress Note-Physician Patient: AMANDA OAKES Age: 57 years Sex: Female : 1965 Associated Diagnoses: None Author: Lore Hebert DO Postoperative Information Procedure: R RA DIMITRI Preoperative Diagnosis: R hip OA. Postoperative Diagnosis: same. Performed by: luke. Proof Plate Maker: rupal. Specimens Removed: bone, soft tissue. Prosthesis: [employer]. . Estimated Blood Loss: 250 ml. Complications: None. Anesthesia type: Spinal, fascia iliaca block. Normal [facility] Comment on above: Result Comment: Elec tronically Signed By: Lore Hebert DO\.br\Date and Time Signed: 08/17/22 11:09 EDT Consent for Procedure/Surger yon 08-12-2022 Consent for Procedure/Surgery [id number] [email or web address] [facility] Coding Summary.on 08-04-2022 Coding Summary. CD:[id number] Gh0bWw+PGhlYWQ+PE1FV WPcE98ugNLijW3uF8TNR ElOSywgQVBQTElOSyIgb fFrVF1hfGFfPPXu IC8+YT6sIFEcEsiozOFg m7Y2rLJ7O03ski8kUCte gLR6CDCkFaZoxgdly1bm oAj0UWveKadgPkBv VVTwyS03RGX1bW57Gm91 tMKoiENhu3gkgEw6AfDv MLVmGHL7qYguAKlpa0Tj PDUjK36lnXVoh7V0 IGNvbGxhcHNlOyBlbXB0 tP3nPHnkfaqdu6hprqew Xfn7ni45oZGcf9P2hUS0 O7IavpI4AZKerUKz BybeiJDXiY3vrpmgh5yb yvaaNhAkTYKiQWo7YDc4 OKRbmQsnLmQgCH51IHR4 OFEnlfYhX8YvGGSb wYqjEuF0q8C0Ev8HD5NB EcoqJ8TBLRNWDNpdwSV+ XO75pc27B0WyRehnHmh3 OTWkSLX7cSL1lA6f CPFmMBblk7G2wHD2W9Fe jbFdbb2th9qsHRBrVYlf X16iyKCwa9I6EKJvmTU1 JIBksOibBvHtjT09 Oyc+MNWvlIcoh7DbZxsr g9smu8kkhWx2XzkeLBBg vyElsAdpDDP4y2MiRk8j JOCkoAJ4kGU4fN2k DuQrThI0YWzoA139FeSi fGEvGwsoX44wO7DzzRO+ PHWqFfi1WGEiqMtgEN6u N1VtXFQwtaminYPj qNfsKA9tTXIknpxbABVu rB7tAAPlW3j7CpXmCpD0 JDomE0AxANStvemcDy51 yZ6oKtWoJnS0CCgn C3ZwmpS7OMBqwIFsIAla DUH0Q36mw1S4SBNxLPSr MRC9cGC8vM3krRrrvkmz bGVmdDsgdmVydGlj ZPkrFPjwR070VHQhnLra PkNvZGluZyBEYXRlOiAg MDMvMTUvMjAyMzwvdGQ+ LWObRTF4mOmtGECa oMHvYQotJv6mzMguhWxs IB7dAPHimwrfMZEleH8c XAYutTNhiNgyNO8uEVYg aioqr651XuAcMUE6 REEhvDQeT2McvY8zAiIb QMFyJZZwW7AyeIYbSUly N671UNdnJgI4HKCjimSw B8KrGRAdkFrvRyP7 w8D5Gl1Ch9PmfwnkX8Rf mOOjXpQiPefwUIb2Z6Fw PjwvdHI+EU08KMBbYK90 UCu9ZPI9yDahWEgr DVKaQ9RdwJ4cQxGvTTXz ZGRkOyc+PHRhYmxlIHdp ZHRoPScxMDAlJyBzdHls VB7rUs9fFIIxQTCe oRtddLSwCuBlr6bsFVWt QCtwNN7sgJptC3JclPP8 MZDft5g3Nl66I64rL6Hw dXA+AZKzvIK1dUN5 iX3pNlWxBuS7YOopC202 VfGxtZPaYnqoi6tnw1fr oEo6BvK1SYXwylGbxGem XNY3m3YmFp06I33e IHdpZHRoPSIxNSUiIHZh eUgzfk0srM9dOv1+PGNv yBB8gMM2fO4hEaTtUvS5 AEzyW501EtEfpJIm Tcbmp2ypn7tndQc6SbXy HIAezjScbXoeRGS5l8De Pf17N8WqxRqzw8FmXwp5 aw78nVLql9F3xNL1 I3ZbQBVgnrqxjOLizRkz DW9xKCPeegsbKEPxvB1q MZPqY0u5CdZyMrH4USto Z1BwdoO4YBAcmNEy VYFucCRHgA0czxhvq7le fjkeAjKkTHAmEAj9OCf6 OIRueNnjWoBcTLT3GkI3 YFO6pQWyrZ1khMik wxteuL4qJrk+AMB7iOPi pTRUCH0mGhnelMM+PHRk CBJ9rZwzZRcrPYPcfX5y JTFrF0i9JxYfZhQ4 MHxiS2PpybT9LMEckJMn IJLzyCPNdK5rxxzta8ue zfynEyFxRZAvECw4UUb2 LWFsaWduOiBsZWZ0 OtL9PZT1xIHyhM4bmNfa tmbhyU2uDev+QmlydGgg XRO9XEu5U2SyVpp3XYAs qOyqRC4rwFJoUTio Iy1psSykhIhbMQ4jDHFy atyts854VwAod8kwGYYj yIYkWMksYWV1E22fi4E5 ICWkDTBnGDG2dXY3 wP7zgYklbjbypXJxqRgr wbTyaGpwSSzgCLpcF673 OQEndUrbJzEaTRi2V4Cq Ccn4EUYqiVvdIE2t iIFrNYpoQm4fdRhoeCaz YI1tKWIgsszfr587EiUr h3ehZXGsvPEkVLlfADG6 H80gl2B3BDTpIZVd CJV2xBA9hG3zcMnchque bGVmdDsgdmVydGljYWwt OJsmN265QQHgnKumGsXh kAd9A9XqCfo7PUHa fVubLX1qzKPwCMalEt8f eXtnnFutVJ2jKEPlwhda z063MdVrc0kpXZOhaFXj YHbjZKJ9I37ss2O8 XDBsADWbQYH1pJG2bA3l bGlnbjogbGVmdDsgdmVy lCgkOVxfXNhrW912KPRp cDsnPlBhdGllbnQg IXzoBYm7I3RnGjjnoMC+ SO74WGDhRE77rRXpuEYf t9ficFn8PzBfUGQqYOD0 eTtqEOiyc7FvWIWn J78ppSHtg6D7XNYmjPep wBAfBzPtaHZ6oG6wTOrd qvkxl3xnpwicCyaig0oh js39vJ71P80yPPuh ZHRoPSIzMCUiIHZhbGln rn2anA7cEy3+PGNvbCB3 yNL7uX0mVKBvRwO4RLsg X402PqQqeXSmHbbi n2hxq8huyHr4QtR6SGTs ufOgfBvkNQE1v4OuPp29 A12iORyqPHXzYMIbOEBj QRXaoQypjz8cvJ4a Ii8+ESGmdYZ8lNI0tS7y GvPhBpS3VMmxL179YqEf iQOvUfzcS41jN4WlgBD+ ZUVwUex7IUVyyOtw WE7yeXBjLUxiYb2iNGQ2 XzLyUbRlUPibR8LkDFJk qfgzbhgrmDS3VZOlUSSp yM68Bd4koNzeYJOr sIRYeN1pgchhd8itjczm XcFeCVXsYXu0MYx9NLKo lWmcTvIlFWD9TvF0ASK5 lDMzoP2muOvskbws nM1qG9UcFHFwzvojGh29 uJ7xEsWmOuA4GTqeKnc+ J0WES1HDVKJXIpUKSDj9 X3SbYfg9HEPokPxt QS9miKZvEQphYw3wpLxu gBjqHC5vJVVfvphpTWMe xF8lATVnbPVroFlbTT1i XNUscpbwr925YeOw SDK8ELRcnOCtZ0SazK2r UbMtKOTyWPYeM6UvcCBc MDicS290JSgxUaS4OBPc kuYvS4SmVPMjzBbr HvA6a5V8Cq5xSR8oEQ4n RLY2AQ22TT03qCMrv3C6 tQV4C6OzFTPyzhajdwui yOQ7YLFfBNClpS49 jUHhZSdtIc3de3D9g189 HPIaPGOatX41Gh9rtYli TRBjbFMOtI3fyfwen5gn cjogIzAwMDAwMDt0 GFg0RZQdsDgmFzQfWUW6 ZcN5YBB3mUZckL8apZae fwomjA4gTnb+NTggWWVh afS0D5IwPwi5CLFd zTkjXK8qxFTaJXgbAj5a mDostOjeDY2sIYPxrnvm WNQjbN6mASAegIYviTkb NA4iIVFkdfhzs873 ThSxUYV4RGUbkJRqF2Ov lK3mBtVbMBBpMXUeD6Yo pFFlQXemG882VQyxWkB8 AYVfdcDuU9QoFCHi kFsbMuB6p2W7Gq9YLV7u yRP8I9KuEkl3GZUhoNqr FC8wzZYaZIhyRj2keVgy mIyeJI4mZWXobyvt LLEylZ8gAVQfcCSvhRnt HC6vBVNnvxkwg608ApPd XIH8OCQlhXXxW4NtcN7a TxEsHRHgRFXjT9Lx oKYeUBovR869EOhuGzK9 JJTmgkQxY3EcKLFtlIcn SqR4q2J6Wb4DnUPtGSCk GR97LV82TV60A3Ym PjwvdGFibGU+PHRhYmxl IHdpZHRoPScxMDAlJyBz qFlbZY9kLk0lHNCsTKFn qScttODcEsWmn9vq LXIbSHasVY1azBeyK0Sx tVO2BIQyv2x2Nt96E82a R3ZtoAE+GGCgtYX1dEI1 uP2sPrLnNtV5QYhh H682QwEylKOcFysyj0or l3aprTz8HxJdGLZpowBx iWklLXU4p9RkQw59J21y IHdpZHRoPSIyMCUi XMTfpVzjsp6kjO2oHs5+ JHOcyNN5kIM3jP7hFhXa ChJ2CDngY387EpFlhRIn MzakB89wB6YfyED+ CDPuLpc4ZJDbcXuzMU0h sGIzNCrsDh7rHYJ3HiNr LnLlCIowC1ArERZbhfve kquvgYZ1ADDqROZc zO89Fp4zqYnnPz5sCOIx ZVX6RCNwbDUzN4LxdA5p YePhNHAfWTDaG9FclNXr ESsuP333IGasBfV8 XDXiieHrQ8JqRCXykIjl JbT6z2F8Fs1LvHwagMHy BM8nUuVmSVc1Q6OxJxs9 CLJabYnnQU3amWMm IYqsAv8nbTaxxSzqLT0p QRYftlvpt442BtSqe8dq ZINkiTTvSDgtJSB6N62e v9S6APUiNMNtDAX3 cJZ9xU1qlMcmahellNRn dDsgdmVydGljYWwtYWxp S602UNRdkSneOeQSApd1 S9LdPnm3BXWsjAgg RC7jsVMxJIiaIi8pqVhs gUfkVZ7tASDtlmshc054 TuRyn7juDSIvlQWkQCvp LEO9Y73pu2V3QLSy FWAxNAO1dPK3bB4bxLbw bjogbGVmdDsgdmVydGlj BIobLRqbT793TXCcdQdy Ca8LYvw7L1PrGos5 DTHrrLqoEA5uzLHiXLid Gx2wiSfbiOphSQ5vMNYr vuxzd151SrElv2jjVHKq eWOoTCciJJE1F74t m8Z3KWJnIKZsYPW2yIZ0 fP0jnXsmovfusPOrrRih dyLtyXnmFOnlOXvvB468 IHRvcDsnPlBheWVy OjwvdGQ+IT07ao55P8Zu VolrDsy6UUSlDUP4rOX5 hN1qZAOvTKktd2O4vYY0 C7PabmFjyr4ph8lw YXBz (more content not included)... Normal [facility] CT Lower Extremity w/o Contr ast [...] as low as reasonably achievable. Ordering Provider: Lore Hebert FINAL REPORT Dictated: 07/30/2022 1:44 pm Hao Morton DO Signed (Electronic Signature): 07/30/2022 1:44 pm Signed by: Hao Morton DO Transcribed by: ANSHU Technologist: BASIM Godfrey [facility] ABO/Rh Retypeon 07-29-2022 ABO/Rh Retype Interp Negative Invalid Interpretation Code [facility] Comment on above: Performed By: #### 1 [id number] ####[facility] [address] [place] [address] BLOOD BANKOrdered By: Courtney Del Toro on 07-29-2022 ABO/Rh Retype Interp Negative Invalid Interpretation Code [facility] BB Subsection BUNon 07-29-2022 Urea nitrogen [Mass/Vol] 10 mg/dL Normal 5-21 [facility] Comment on above: Performed By: #### 2 119268, 1158502, 8349663, 70765514, 6055860, 9506897 ####[facility] [address] [place] [address] CBC w/Indiceson 07-29-2022 Erythrocyte distribution width (RBC) [Ratio] 14.1 % Normal 10.9-14.2 [facility] Comment on above: Performed By: #### 2 525767, 5040475, 4153958, 37129094, 2213538, 9031251 ####[facility] [address] [place] [address] Hematocrit (Bld) [Volume fraction] 38.7 % Normal 34.0-46.0 [facility] Comment on above: Performed By: #### 2 698262, 3507355, 4494906, 32049420, 1469163, 8990413 ####[address] [address] Hemoglobin (Bld) [Mass/Vol] 13.1 g/dL Normal 12.0-16.0 [facility] Comment on above: Performed By: #### 2 494835, 8412967, 7947526, 73482206, 9832875, 8949360 ####[address] [address] MCH (RBC) [Entitic mass] 30.7 pg Normal 27.0-34.0 [facility] Comment on above: Performed By: #### 2 262343, 0460791, 3199764, 59621340, 1244601, 5017941 ####[address] [address] MCHC (RBC) [Mass/Vol] 33.9 g/dL Normal 31.4-36.0 [facility] Comment on above: Performed By: #### 2 425880, 1709287, 0897031, 17093872, 4198918, 2939782 ####[address] [address] MCV (RBC) [Entitic vol] 90.7 fL Normal 80.0-100.0 [facility] Comment on above: Performed By: #### 2 167466, 9940605, 0921381, 78109993, 5523746, 0858448 ####[address] [place] [address] Platelet mean volume (Bld) [Entitic vol] 8.1 fL Normal 6.4-10.8 [facility] Comment on above: Performed By: #### 2 222767, 9104151, 4448206, 57327435, 3339408, 9818538 ####[address] [address] Platelets (Bld) [#/Vol] 258.0 E9/L Normal 150.0-500.0 [facility] Comment on above: Performed By: #### 2 635008, 4500833, 0824226, 94165006, 8810514, 3383517 ####[facility] [address] [place] [address] RBC (Bld) [#/Vol] 4.3 E12/L Normal 4.3-5.9 [facility] Comment on above: Performed By: #### 2 840742, 3299471, 1050369, 43339682, 3779873, 5882843 ####[facility] [address] [place] [address] WBC corrected for nucl RBC Auto (Bld) [#/Vol] 3.8 E9/L Low 4.0-11.0 [facility] Comment on above: Performed By: #### 2 665276, 8728188, 3841930, 74106821, 3154518, 9256452 ####[facility] [address] [place] [address] CHEMISTRYOrdered By: Lashanda Villarreal on 07-29-2022 Anion gap [Moles/Vol] 11 mmol/L Normal 6 - 16 mEq/L [facility] Remisol Chloride [Moles/Vol] 101 mmol/L Normal 101 - 1 11 mmol/L [facility] Remisol CO2 [Moles/Vol] 28 mmol/L Normal 21 [...] 10 mg/dL Normal 5 - 21 mg/dL [facility] Remisol CHEMISTRYOrdered By: [employer] on 07-29-2022 GFR/1.73 sq M.predicted among blacks MDRD (S/P/Bld) [Vol rate/Area] mL/min/1.73 m2 Normal >=59mL/min/1. 73 m2 [facility] Chem S GFR/1.73 sq M.predicted among non-blacks MDRD (S/P/Bld) [Vol rate/Area] mL/min/1.73 m2 Normal >=59mL/min/1. 73 m2 [facility] Chem S Consent for Treatmenton Consent for Treatment [id number] #1.00CD:127 Normal [facility] Creatinineon 07-29-2022 Creatinine [Mass/Vol] 0.8 mg/dL Normal 0.5-1.3 [facility] Comment on above: Performed By: #### 2 212360, 0333316, 8010418, 42733525, 4851432, 0057832 ####[facility] [address] [place] [address] Glucoseon 07-29-2022 Glucose [Mass/Vol] 89 mg/dL Normal 55-199 [facility] Comment on above: Performed By: #### 2 458821, 6863954, 1888185, 77374911, 9774143, 5645312 ####[facility] [address] [place] [address] HEMATOLOGYOrdered By: Courtney Del Toro on 07-29-2022 Erythrocyte distribution width (RBC) [Ratio] 14.1 % Normal 10.9 - 14.2 % [facility] HemeAutoSS Hematocrit (Bld) [Volume fraction] 38.7 % Normal 34.0 - 46.0 % [facility] HemeAutoSS Hemoglobin (Bld) [Mass/Vol] 13.1 g/dL Normal 12.0 - 16.0 gm/dL [facility] HemeAutoSS MCH (RBC) [Entitic mass] 30.7 pg Normal 27.0 - 34.0 pg [facility] HemeAutoSS MCHC (RBC) [Mass/Vol] 33.9 g/dL Normal 31.4 - 36.0 gm/dL [facility] HemeAutoSS MCV (RBC) [Entitic vol] 90.7 fL Normal 80.0 - 100.0 fL [facility] HemeAutoSS Platelet mean volume (Bld) [Entitic vol] 8.1 fL Normal 6.4 - 10.8 fL [facility] HemeAutoSS Platelets (Bld) [#/Vol] 258.0 E9/L Normal 150.0 - 500.0 E9/L [facility] HemeAutoSS RBC (Bld) [#/Vol] 4.3 E12/L Normal 4.3 - 5.9 E12/L [facility] HemeAutoSS WBC corrected for nucl RBC Auto (Bld) [#/Vol] 3.8 E9/L Low 4.0 - 11.0 E9/L [facility] HemeAutoSS Lyteson 07-29-2022 Anion gap [Moles/Vol] 11 mmol/L Normal 6-16 [facility] Comment on above: Performed By: #### 2 845463, 5074999, 9905115, 30693846, 3608199, 8625465 ####[facility] [address] [place] [address] Chloride [Moles/Vol] 101 mmol/L Normal 101-111 [facility] Comment on above: Performed By: #### 2 964504, 8148384, 4353830, 55903972, 7010457, 8165671 ####[facility] [address] [place] [address] CO2 [Moles/Vol] 28 mmol/L Normal 21-31 [facility] Comment on above: Performed By: #### 2 507913, 2241448, 3614285, 81644791, 2083870, 6145945 ####[facility] [address] [place] [address] Potassium [Moles/Vol] 4.1 mmol/L Normal 3.5-5.3 [facility] Comment on above: Performed By: #### 2 602724, 2009880, 2232416, 14709178, 3936084, 5497270 ####[facility] [address] [place] [place] [address] Sodium [Moles/Vol] 136 mmol/L Normal 135-145 [facility] Comment on above: Performed By: #### 2 792419, 5513120, 6145200, 09899380, 6819678, 5239257 ####[facility] [address] [place] [address] UA With Cult Reflexon 2022 Bilirubin Ql (U) Negative Normal Negative [facility] Comment on above: Performed By: #### 1 0715476 ####[address] [address] Clarity (U) CLEAR Normal Clear [facility] Comment on above: Performed By: #### 1 7607639 ####[address] [place] [address] Color (U) YELLOW Normal Yellow [facility] Comment on above: Performed By: #### 1 8048931 ####[address] [address] Epithelial cells.squamous LM.HPF (Urine sed) [#/Area] 0-2 Normal 0-[address] [facility] Comment on above: Performed By: #### 1 7868833 ####[facility] [address] [place] [address] Glucose Test strip (U) [Mass/Vol] Negative Normal Negative [facility] Comment on above: Performed By: #### 1 6479663 ####[address] [address] Hemoglobin Ql (U) Negative Normal Negative [facility] Comment on above: Performed By: #### 1 6449548 ####[facility] [address] [facility] [place] [address] Ketones (U) [Mass/Vol] Negative Normal Negative [facility] Comment on above: Performed By: #### 1 8180657 ####[address] [address] [place].plasma/Lithiu m.RBC (Bld) [Mass ratio] 0-3 Normal 0-3 [facility] Comment on above: Performed By: #### 1 9289486 ####[facility] [address] [place] [address] Nitrite Ql (U) Negative Normal Negative [facility] Comment on above: Performed By: #### 1 4825435 ####[address] [address] pH (U) 7.0 [pH] Invalid Interpretation Code 5.0-9.0 [facility] Comment on above: Performed By: #### 1 0635997 ####[address] [address] Protein (U) [Mass/Vol] Negative Normal Negative [facility] Comment on above: Performed By: #### 1 7140595 ####[address] [address] Specific gravity (U) [Rel density] 1.010 Invalid Interpretation Code 1.005-1.030 [facility] Comment on above: Performed By: #### 1 1145526 ####[address] [address] Type of Urine collection method Clean Catch Normal [facility] Comment on above: Performed By: #### 1 0305766 ####[address] [address] Urobilinogen Qn (U) 0.2 {Damian'U}/dL Normal 0.0-1.0 [facility] Comment on above: Performed By: #### 1 8772631 ####[address] [address] WBC Auto Ql (U) TRACE Abnormal Negative [facility] Comment on above: Performed By: #### 1 0486995 ####[address] [address] WBC LM.HPF (Urine sed) [#/Area] 0-5 Normal 0-5 [facility] Comment on above: Performed By: #### 1 0650921 ####[address] [address] URINALYSISOrdered By: An Fletcher on 07-29-2022 Bilirubin [...] AM) Normal Negative [facility] UA Auto SS [place].plasma/Lithiu m.RBC (Bld) [Mass ratio] 0-3 /HPF Normal [...] [facility] UA Auto SS Urobilinogen Qn (U) 0.9723436 {Damian'U}/dL Normal 0.0 - 1.0 EU/dL [facility] [...] mGy = na DAP = na Normal [facility] eGFRon 07-29-2022 GFR/1.73 sq M.predicted among blacks MDRD (S/P/Bld) [Vol rate/Area] mL/min/{1.73_m2} Normal >=59 [facility] Comment on above: Order Comment: Order added by Discern Expert. Result Comment: eGFR is race adjusted. AA=. Performed By: #### 2 501995, 3208937, 5760053, 78094740, 5164815, 5792048 ####[facility] [address] [place] [address] GFR/1.73 sq M.predicted among non-blacks MDRD (S/P/Bld) [Vol rate/Area] mL/min/{1.73_m2} Normal >=59 [facility] Comment on above: Order Comment: Order added by Discern Expert. Result Comment: Plastic Frame Inserter gene kidney disease could be indicated at eGFR's of less than 60 mL/min/1.73m2. Kidney failure is indicated at less than 15 mL/min/1.73m2. Performed By: #### 2 048878, 9049018, 0910759, 72439088, 3900706, 5460915 ####[facility] [address] [place] [address] Physician Orderon 07-22-2022 Physician Order [id number]#1.00CD:127 Normal [facility] Pre-Certification Formon Pre-Certification Form [id number]#1.00CD:127 Normal [facility] Physician Orderon 07-16-2022 Physician Order [id number] #1.00CD:127 Normal [facility] PAP ACOG PANEL 2: 30 to 65on 03-28-2022 . . Normal [facility] Comment on above: Result Comment: Perf ormed at: BA Performed By: #### 4 750146 #### [facility] [address] [address] [address] Cali Ortiz Age Gdln ACOG Testing 30-65 [facility] Comment on above: Performed By: #### 4 665400 #### [facility] [address] [address] [address] Cali Ortiz DIAGNOSIS: Comment [facility] Comment on above: Result Comment: NEGA TIVE FOR INTRAEPITHELIAL LESION OR MALIGNANCY. CELLULAR CHANGES ASSOCIATED WITH ATROPHY ARE PRESENT. Performed at: BA Performed By: #### 4 201469 #### [facility] [address] [address] [address] Cali Ortiz HPV Aptima Negative Normal Negative [facility] Comment on above: Result Comment: This nucleic acid amplification test detects fourteen high-risk HPV types (16,18,31,33,35,39,45,51,52,56,58,59,66,68) without differentiation. Performed at: =G Performed By: #### 4 745956 #### [facility] [address] [address] [address] Cali Ortiz HPV Genotype Reflex Comment Normal [facility] Comment on above: Result Comment: Crit eria not met, HPV Genotype not performed. Performed at: BA Performed By: #### 4 994956 #### [facility] [address] [place] [address] Dr. Cali Ortiz Methodology: Comment Normal [facility] Comment on above: Result Comment: This liquid based ThinPrep(R) pap test was screened with the use of an image guided system. Performed at: WB Performed By: #### 4 657009 #### [facility] [address] [place] [address] Dr. Cali Ortiz Note: Comment Normal [facility] Comment on above: Result Comment: The Pap smear is a screening test designed to aid in the detection of premalignant and malignant conditions of the uterine cervix. It is not a diagnostic procedure and should not be used as the sole means of detecting cervical cancer. Both false-positive and false-negative reports do occur. . Performed at: WB Performed By: #### 4 822388 #### [facility] [address] [place] [address] Dr. Cali Ortiz Performed by: Comment Normal [facility] Comment on above: Result Comment: Aleyda Stone, Mainframe Applications Developer (ASCP) Performed at: BA Performed By: #### 4 197270 #### [facility] [address] [place] [address] Dr. Cali Ortiz Specimen adequacy: Comment Normal [facility] Comment on above: Result Comment: Sati sfactory for evaluation. Endocervical component may not be distinguished in cases of atrophy. Performed at: BA Performed By: #### 4 649076 #### [facility] [address] [place] [address] Dr. Cali Ortiz MG MAMM SCREEN 3D OCTAVIO CADon 02-15-2022 MG MAMM SCREEN 3D OCTAVIO CAD Patient: AMANDA OAKES Exam Date: 02/15/2022 : 1965 Gender:F Ordering : DR JOSE HARRIS . Admission #: [id number] Family : Order #: [id number] CLICK HERE TO VIEW EXAM RADIOLOGY REPORT [...] Treatments None Family Cancers None LOCATION: [facility] BREAST COMPOSITION: Scattered areas fibroglandular density. FINDINGS: [...] PALPABLE LUMP SHOULD BE BIOPSIED. Dictated by: Lore Robb MD on 02/15/2022 at 11:02 Approved by: Lore Robb MD on 02/15/2022 at 11:03 Normal [facility] CBC AUTO DIFFon 08-19-2021 BASO # 0.1 103/ul Normal 0.0-0.1 [facility] Comment on above: Performed By: #### C BC #### [facility] [address] [place] [address] Dr. Cali Ortiz Basophils/100 WBC (Bld) 1.4 % Normal 0.2-2.0 [facility] Comment on above: Performed By: #### C BC #### [facility] [address] [place] [address] Dr. Cali Ortiz EO # 0.1 103/ul Normal 0.0-0.7 [facility] Comment on above: Performed By: #### C BC #### [facility] [address] [place] [address] Dr. Cali Ortiz Eosinophils/100 WBC (Bld) 3.1 % Normal 0.9-7.0 [facility] Comment on above: Performed By: #### C BC #### [facility] [address] [place] [address] Dr. Cali Ortiz Erythrocyte distribution width (RBC) [Ratio] 13.2 % Normal 11.0-15.0 [facility] Comment on above: Performed By: #### C BC #### [facility] [address] [place] [address] Dr. Cali Ortiz Hematocrit (Bld) [Volume fraction] 40.7 % Normal 36.0-48.0 [facility] Comment on above: Performed By: #### C BC #### [facility] [address] [place] [address] Dr. Cali Ortiz Hemoglobin (Bld) [Mass/Vol] 13.0 g/dL Normal 12.0-16.0 [facility] Comment on above: Performed By: #### C BC #### [facility] [address] [place] [address] Dr. Cali Ortiz IG # 0.01 10e3/ul Normal 0.00-0.03 [facility] Comment on above: Performed By: #### C BC #### [facility] [address] [place] [address] Dr. Cali Ortiz IG % 0.2 % Normal 0.0-0.5 [facility] Comment on above: Performed By: #### C BC #### [facility] [address] [place] [address] Dr. Cali Ortiz LYMPH # 1.4 103/ul Normal 1.2-3.8 [facility] Comment on above: Performed By: #### C BC #### [facility] [address] [place] [address] Dr. Cali Ortiz Lymphocytes/100 WBC (Bld) 31.9 % Normal 20.5-60.0 [facility] Comment on above: Performed By: #### C BC #### [facility] [address] [place] [address] Dr. Cali Ortiz MANUAL DIFF REQ NO Normal [facility] Comment on above: Performed By: #### C BC #### [facility] [address] [place] [address] Dr. Cali Ortiz MCH (RBC) [Entitic mass] 30.7 pg Normal 26.7-34.0 [facility] Comment on above: Performed By: #### C BC #### [facility] [address] [place] [address] Dr. Cali Ortiz MCHC (RBC) [Mass/Vol] 31.9 g/dL Normal 29.9-35.2 [facility] Comment on above: Performed By: #### C BC #### [facility] [address] [place] [address] Dr. Cali Ortiz MCV (RBC) [Entitic vol] 96.2 fL Normal 81.0-99.0 [facility] Comment on above: Performed By: #### C BC #### [facility] [address] [place] [address] Dr. Cail Ortiz MONO # 0.4 103/ul Normal 0.3-0.8 [facility] Comment on above: Performed By: #### C BC #### [facility] [address] [place] [address] Dr. Cali Ortiz Monocytes/100 WBC (Bld) 10.3 % Normal 1.7-12.0 [facility] Comment on above: Performed By: #### C BC #### [facility] [address] [place] [address] Dr. Cali Ortiz NEUT # 2.3 103/ul Normal 1.4-6.5 [facility] Comment on above: Performed By: #### C BC #### [facility] [address] [place] [address] Dr. Cali Ortiz Neutrophils/100 WBC (Bld) 53.1 % Normal 43.0-75.0 [facility] Comment on above: Performed By: #### C BC #### [facility] [address] [place] [address] Dr. Cali Ortiz Platelet mean volume (Bld) [Entitic vol] 9.8 fL Normal 9.5-13.5 [facility] Comment on above: Performed By: #### C BC #### [facility] [address] [place] [address] Dr. Cali Ortiz PLT 267 103/ul Normal 150-450 [facility] Comment on above: Performed By: #### C BC #### [facility] [address] [place] [address] Dr. Cali Ortiz RBC 4.23 106/ul Normal 4.20-5.40 [facility] Comment on above: Performed By: #### C BC #### [facility] [address] [place] [address] Dr. Cali Ortiz WBC 4.3 103/ul Normal 4.0-11.0 [facility] Comment on above: Performed By: #### C BC #### [facility] [address] [address] [address] Cali Ortiz GLYCOHEMOGLOBIN A1Con 2021 ADA RECOMMENDATION ADA THERAPEUTIC TARGET 6.0 - 7.0 ACTION SUGGESTED > 7.0 Normal [facility] Comment on above: Performed By: #### A 1C #### [facility] [address] [address] [address] Cali Ortiz Glucose [Mass/Vol] 105 mg/dL Normal [facility] Comment on above: Performed By: #### A 1C #### [facility] [address] [place] [address] Dr. Cali Ortiz HbA1c (Bld) [Mass fraction] 5.3 % Normal <=6.0 [facility] Comment on above: Performed By: #### A 1C #### [facility] [address] [place] [address] Dr. Cali Ortiz LIPID PROFILEon 08-19-2021 CHOL-HDL RATIO NORM SEE BELOW Normal [facility] Comment on above: Result Comment: 3.3 - 4.4 LOW RISK 4.4 - 7.1 AVERAGE RISK 7.1 - 11.0 MODERATE RISK >11.0 HIGH RISK Performed By: #### T SH, BMP, LIPID, LIVER #### [facility] [address] [place] [address] Dr. Cali Ortiz Cholesterol [Mass/Vol] 216 mg/dL Critically high <=200 [facility] Comment on above: Performed By: #### T SH, BMP, LIPID, LIVER #### [facility] [facility] [address] [place] [address] Dr. Cali Ortiz Cholesterol in HDL [Mass/Vol] 84 mg/dL Critically high 40-60 [facility] Comment on above: Performed By: #### T SH, BMP, LIPID, LIVER #### [facility] [address] [place] [address] Dr. Cali Ortiz Cholesterol in LDL [Mass/Vol] 112.2 mg/dL Normal [facility] Comment on above: Performed By: #### T SH, BMP, LIPID, LIVER #### [facility] [address] [address] [address] Cali Ortiz Cholesterol.total/Cho lesterol in HDL [Mass ratio] 2.6 {ratio} Normal [facility] Comment on above: Performed By: #### T SH, BMP, LIPID, LIVER #### [facility] [address] [address] [address] Cali Ortiz HDL NORMAL > or = 60 mg/dl - LOW CARDIOVASCULAR RISK <40 mg/dl - HIGH CARDIOVASCULAR RISK Normal [facility] Comment on above: Performed By: #### T SH, BMP, LIPID, LIVER #### [facility] [address] [place] [address] Dr. Cali Ortiz LDL CALC NORMAL SEE BELOW Normal [facility] Comment on above: Result Comment: <100 mg/dl OPTIMAL 100 - 129 mg/dl NEAR OR ABOVE OPTIMAL 130 - 159 mg/dl BORDERLINE HIGH 160 - 189 mg/dl HIGH >190 mg/dl VERY HIGH Performed By: #### T SH, BMP, LIPID, LIVER #### [facility] [address] [place] [address] Dr. Cali Ortiz Triglyceride [Mass/Vol] 99 mg/dL Normal <=150 [facility] Comment on above: Performed By: #### T SH, BMP, LIPID, LIVER #### [facility] [address] [place] [address] Dr. Cali Ortiz VLDL CALC 19.8 mg/dL Normal [facility] Comment on above: Performed By: #### T SH, BMP, LIPID, LIVER #### [facility] [address] [address] [address] Cali Ortiz LIVER PROFILEon 08-19-2021 Albumin [Mass/Vol] 4.1 g/dL Normal 3.4-5.0 [facility] Comment on above: Performed By: #### T SH, BMP, LIPID, LIVER #### [facility] [address] [place] [address] Dr. Cali Ortiz Albumin/Globulin [Mass ratio] 1.2 {ratio} Normal [facility] Comment on above: Performed By: #### T SH, BMP, LIPID, LIVER #### [facility] [address] [place] [address] Dr. Cali Ortiz ALP [Catalytic activity/Vol] 81 U/L Normal 46-116 [facility] Comment on above: Performed By: #### T SH, BMP, LIPID, LIVER #### [facility] [address] [place] [address] Dr. Cali Ortiz ALT [Catalytic activity/Vol] 15 U/L Normal 14-59 [facility] Comment on above: Performed By: #### T SH, BMP, LIPID, LIVER #### [facility] [address] [place] [address] Dr. Cali Ortiz AST [Catalytic activity/Vol] 15 U/L Normal 15-37 [facility] Comment on above: Performed By: #### T SH, BMP, LIPID, LIVER #### [facility] [address] [place] [address] Dr. Cali Ortiz BILI, CONJUGATED 0.1 mg/dL Normal 0.0-0.3 [facility] Comment on above: Performed By: #### T SH, BMP, LIPID, LIVER #### [facility] [address] [place] [address] Dr. Cali Ortiz Bilirubin [Mass/Vol] 0.4 mg/dL Normal 0.2-1.3 [facility] Comment on above: Performed By: #### T SH, BMP, LIPID, LIVER #### [facility] [address] [place] [address] Dr. Cali Ortiz Globulin (S) [Mass/Vol] 3.4 g/dL Normal [facility] Comment on above: Performed By: #### T SH, BMP, LIPID, LIVER #### [facility] [address] [place] [address] Dr. Cali Ortiz Protein [Mass/Vol] 7.5 g/dL Normal 6.1-8.2 [facility] Comment on above: Performed By: #### T SH, BMP, LIPID, LIVER #### [facility] [address] [place] [address] Dr. Cali Ortiz PROF CHEM 8 (BAS METB)on Anion gap [Moles/Vol] 9.7 mmol/L Normal [facility] Comment on above: Performed By: #### T SH, BMP, LIPID, LIVER #### [facility] [address] [address] [address] Cali Ortiz Calcium [Mass/Vol] 9.1 mg/dL Normal 8.5-10.1 [facility] Comment on above: Performed By: #### T SH, BMP, LIPID, LIVER #### [facility] [address] [address] [address] Cali Ortiz Chloride [Moles/Vol] 97 mmol/L Critically low 98-107 [facility] Comment on above: Performed By: #### T SH, BMP, LIPID, LIVER #### [facility] [address] [place] [address] Dr. Cali Ortiz CO2 [Moles/Vol] 30.0 mmol/L Normal 22.0-30.0 [facility] Comment on above: Performed By: #### T SH, BMP, LIPID, LIVER #### [facility] [address] [address] [address] Cali Ortiz Creatinine [Mass/Vol] 0.72 mg/dL Normal 0.52-1.04 [facility] Comment on above: Performed By: #### T SH, BMP, LIPID, LIVER #### [facility] [address] [address] [address] Cali Ortiz EGFR-AF SAUDI ARABIAN >60 Normal >=60 [facility] Comment on above: Performed By: #### T SH, BMP, LIPID, LIVER #### [facility] [address] [address] [address] Cali Ortiz EGFR-NON AF SAUDI ARABIAN >60 Normal >=60 [facility] Comment on above: Performed By: #### T SH, BMP, LIPID, LIVER #### [facility] [address] [address] [address] Cali Ortiz Glucose [Mass/Vol] 97 mg/dL Normal 74-106 [facility] Comment on above: Performed By: #### T SH, BMP, LIPID, LIVER #### [facility] [address] [place] [address] Dr. Cali Ortiz Potassium [Moles/Vol] 4.7 mmol/L Normal 3.4-5.0 [facility] Comment on above: Performed By: #### T SH, BMP, LIPID, LIVER #### [facility] [address] [place] [address] Dr. Cali Ortiz Sodium [Moles/Vol] 132 mmol/L Critically low 137-145 [facility] Comment on above: Performed By: #### T SH, BMP, LIPID, LIVER #### [facility] [address] [place] [address] Dr. Cali Ortiz Urea nitrogen [Mass/Vol] 7.0 mg/dL Normal 7.0-18.0 [facility] Comment on above: Performed By: #### T SH, BMP, LIPID, LIVER #### [facility] [address] [place] [address] Dr. Cali Ortiz Urea nitrogen/Creatinine [Mass ratio] 9.7 mg/mg Normal [facility] Comment on above: Performed By: #### T SH, BMP, LIPID, LIVER #### [facility] [address] [place] [address] Dr. Cali Ortiz TSHon 08-19-2021 TSH 1.895 uIU/mL Normal 0.470-4.680 [facility] Comment on above: Performed By: #### T SH, BMP, LIPID, LIVER #### [facility] [address] [place] [address] Dr. Cali Ortiz TSH RANGE SEE BELOW Normal [facility] Comment on above: Result Comment: <0.3 4 UIU/ml HYPERTHYROID 0.34-5.60 UIU/ml EUTHYROID >5.60 UIU/ml HYPOTHYROID Performed By: #### T SH, BMP, LIPID, LIVER #### [facility] [address] [place] [address] Dr. Cali Ortiz Vital Signs Date Time Vital Sign Value Performing Clinician Lucasi lity 08-17-2022 15:28-0400 Diastolic blood pressure 68 mm[Hg] Lore Pocos [facility] 08-17-2022 15:28-0400 Heart rate 78 /min Lore Pocos [facility] 08-17-2022 15:28-0400 SaO2% (BldA) [Mass fraction] 99 % Lore Pocos [facility] 08-17-2022 15:28-0400 Systolic blood pressure 100 mm[Hg] Lore Pocos [facility] 08-17-2022 14:22-0400 Heart rate 75 /min Lore Pocos [facility] 08-17-2022 14:22-0400 SaO2% (BldA) [Mass fraction] 98 % Lore Pocos [facility] 08-17-2022 14:21-0400 Diastolic blood pressure 70 mm[Hg] Lore Pocos [facility] 08-17-2022 14:21-0400 Mean blood pressure 81 mm[Hg] Lore Pocos [facility] 08-17-2022 14:21-0400 Systolic blood pressure 102 mm[Hg] Lore Pocos [facility] 08-17-2022 13:55-0400 Blood Pressure Location Lore Pocos [facility] 08-17-2022 13:55-0400 Diastolic blood pressure 71 mm[Hg] Lore Pocos [facility] 08-17-2022 13:55-0400 Heart rate 70 /min Lore Pocos [facility] 08-17-2022 13:55-0400 Mean blood pressure 81 mm[Hg] Lore Pocos [facility] 08-17-2022 13:55-0400 SaO2% (BldA) [Mass fraction] 99 % Lore Pocos [facility] 08-17-2022 13:55-0400 Systolic blood pressure 100 mm[Hg] Lore Pocos [facility] 08-17-2022 12:11-0400 Respiratory rate 16 /min Lroe Pocos [facility] 08-17-2022 12:09-0400 Mean blood pressure 71 mm[Hg] Lore Pocos [facility] 08-17-2022 12:09-0400 Body temperature 96.8 [degF] Lore Pocos [facility] 08-17-2022 12:05-0400 Body temperature 97.7 [degF] Lore Pocos [facility] 08-17-2022 12:05-0400 Mean blood pressure 68 mm[Hg] Lore Pocos [facility] 08-17-2022 12:05-0400 Respiratory rate 22 /min Lore Pocos [facility] 08-17-2022 11:55-0400 Mean blood pressure 78 mm[Hg] Lore Pocos [facility] 08-17-2022 11:55-0400 Respiratory rate 14 /min Lore Pocos [facility] 08-17-2022 11:40-0400 Respiratory rate 18 /min Lore Pocos [facility] 08-17-2022 11:24-0400 Body temperature 97.52 [degF] Lore Pocos [facility] 08-17-2022 06:10-0400 Heart rate 60 /min Lore Pocos [facility] 08-17-2022 06:07-0400 Mean blood pressure 98 mm[Hg] Lore Pocos [facility] 08-17-2022 06:07-0400 Respiratory rate 18 /min Lore Pocos [facility] 08-17-2022 06:07-0400 Body temperature 98.6 [degF] Lore Pocos [facility] 07-29-2022 08:27-0500 Blood Pressure Location Lore Pocos [facility] 07-29-2022 08:27-0500 Diastolic blood pressure 89 mm[Hg] Lore Pocos [facility] 07-29-2022 08:27-0500 Systolic blood pressure 125 mm[Hg] Lore Pocos [facility] 07-29-2022 08:26-0500 Blood Pressure Location Lore Pocos [facility] 07-29-2022 08:26-0500 Body temperature 97.52 [degF] Lore Pocos [facility] 07-29-2022 08:26-0500 Diastolic blood pressure 86 mm[Hg] Lore Pocos [facility] 07-29-2022 08:26-0500 Heart rate 73 /min Lore Pocos [facility] 07-29-2022 08:26-0500 Mean blood pressure 98 mm[Hg] Lore Pocos [facility] 07-29-2022 08:26-0500 Respiratory rate 18 /min Lore Pocos [facility] 07-29-2022 08:26-0500 SaO2% (BldA) [Mass fraction] 100 % Lore Pocos [facility] 07-29-2022 08:26-0500 Systolic blood pressure 121 mm[Hg] Lore Stilesos [facility] Encounters Encounter Date Encounter Type Care Provider Facility Start: 11-14-2023 End: 11-14-2023 ambulatory JOSE HARRIS Not Available Start: 08-19-2023 End: 08-19-2023 ambulatory DERIC POCOS Not Available Start: 07-11-2023 End: 07-11-2023 ambulatory MATT ADAMS Not Available Start: 08-17-2022 End: 08-17-2022 ambulatory Deric Pocos Facility:[facility] Start: 08-17-2022 End: 08-17-2022 Admission to same day surgery center Deric Pocos [facility] Start: 07-29-2022 End: 07-30-2022 ambulatory Deric Pocos Facility:[facility] Start: 07-29-2022 ambulatory Facility:[id number] Start: 07-29-2022 End: 07-29-2022 Patient encounter procedure Deric Pocos [facility] Start: 06-28-2022 End: 06-29-[address] JOSE HARRSI Facility:[facility] Start: 03-22-2022 End: 03-22-[address] VIVEK GIPSON Facility:[facility] Start: 02-15-2022 End: 02-16-[address] JOSE HARRIS Facility:[facility] Start: 08-21-2021 Encounter for genera l adult medical examination without abnormal findings DR JOSE HARRIS [facility] Start: 08-19-2021 End: 08-20-[address] JOSE HARRIS Facility:[facility] Start: 08-19-2021 End: 08-20-2021 Encounter for general adult medical examination without abnormal findings DR JOSE HARRIS Facility:[facility] Procedures Date Procedure Procedure Detail Performing Clinician Start: 08-17-2022 Repair of hip Lore Poc os section Lore Pocos Operation on placenta Lore Pocos Payers Date Payer Category Payer Unknown [id number] 2022 Unknown [id number] 1965 Unknown [id number] 2.16.84 [id number] 1965 Unknown [id number] 2.16.84 [id number] 1964 Unknown [id number] 2.16.84 [id number] 1964 Unknown [id number] 2.16.84 [id number] 1964 Unknown [id number] 2.16.8 [id number] 1964 Unknown [id number] 2.16.8 [id number] 1964 Unknown [id number] 2.16. [id number] 1964 Unknown [id number] 2.16.84 [id number] 1964 Unknown [id number] 2.16.84 [id number] 1964 Unknown [id number] 2.16.84 [id number] 1964 Unknown [id number] 2.16.84 [id number] Social History Date Type Detail Facility Tobacco smoking status No Smoking Status Entered [facility] Sex Assigned At Female [facility] Medical Equipment Procedure Code Equipment Code Equipment Origin al Text Equipment Identifier Dates HIP TOTAL ANTERI OR ROBOT ARTHROPLASTY Lore Hebert DO 08/17/22 Unknown Hip R FDA Start: 08-17-2022 HIP TOTAL ANTERI OR ROBOT ARTHROPLASTY Lore Hebert DO 08/17/22 Unknown Hip R FDA Start: 08-17-2022 HIP TOTAL ANTERI OR ROBOT ARTHROPLASTY Lore Hebert DO 08/17/22 Unknown Hip R FDA Start: 08-17-2022 HIP TOTAL ANTERI OR ROBOT ARTHROPLASTY Pocos DOLore 08/17/22 Unknown Hip R FDA Start: 08-17-2022 HIP TOTAL ANTERI OR ROBOT ARTHROPLASTY Pocos DOLore 08/17/22 Unknown Hip R FDA Start: 08-17-2022 HIP TOTAL ANTERI OR ROBOT ARTHROPLASTY Pocos DOLore 08/17/22 Unknown Hip R FDA Start: 08-17-2022 Functional Status Date Assessment Result Facility 07-29-2022 Functional Status No [facility] Clinical Note 08-17-2022 Note Date & Type Note Facility 08-17-2022 Note PT Evaluation comple chavo with an AMPAC score of 18/24. Pt was able to perform bed mobility with CGA and transfers with SBA. Pt was able to ambulate with FWW with CGA. Pt would be functionally safe to return home with caregiver assist and Orth[facility] to follow [facility] Hospital Discharge instructions 08-17-2022 Note Date [...] as possible. If the spirometer includes a living coach indicator, use this to guide you in [...] 09/19/2007 Document Revised: 06/01/2018 Document Reviewed: 03/22/2018 [employer] Patient Education 2020 [employer]. 08/17/2022 09:28:13 Post Op Patient Instructions - FT (CUSTOM) 08/10/2022 07:10:49 Pocos - Hip Replacement Arthroplasty, Revised 07/14/11. (Custom) [place], [place] [facility] DISCHARGE INSTRUCTIONS HIP REPLACEMENT [...] will continue at home, possible with the engineer assistant of Home Health Physical Therapy or in the hospital as an outpatient. When you have become independent with the physical therapy program, this will then be discontinued as a supervised program and you will be instructed to continue the physical therapy exercises at home. DRIVING: Do NOT Drive FOLLOW-UP OFFICE VISIT: 4 weeks Postop Lore Hebert, DO [facility] [address] [place] [address] [id number] Reviewed: 08-28 Revised: 06/03 Follow Up Care 07/15/2022 10:00:47 With:Lore Hebert Address: [address] [place] [id number] (1) When:09/17/2022 08:30:00 Comments:Call for any problems.Keep scheduled appointment [facility] History and physical note 08-12-2022 Note Date & Type Note Facility 08-12-2022 Note [id number] [facility] Clinical Note 06-28-2022 Note Date & Type Note Facility 06-28-2022 Note PROCEDURE: XR HIP RT 2 3V W PELVIS HISTORY: Pain in right hip joint , chronic COMPARISON: None. FINDINGS: BONES:Marked narrowing of right hip joint space with [id number]-[id number] articulation and small subchondral cysts and sclerosis. Small periarticular degenerative osteophytes. No fracture, dislocation, or bone lesion. SOFT TISSUES:No visible soft tissue swelling. EFFUSION:None visible. OTHER: Negative. IMPRESSION: 1. Marked degenerative joint disease of right hip. Electronically authenticated by: ALEAH LONDON Date: 2022-06-28 10:24 [facility] Evaluation + Plan note Note Date & Type Note Facility Evaluation + Plan note Future Appointments Appointment Date:08/17/2022 09:00:00 AM Scheduled Provider: Location:[facility] Appointment Type:Surgery FT [facility] Hospital course Narrative Note Date & Type Note Facility Hospital course Narrative No data available for this section [facility] Hospital Discharge instructions Note Date & Type Note Facility Hospital Discharge instructions No data available for this section [facility] Progress note Note Date & Type Note Facility Progress note No data available for this section [facility] Summary Purpose Family History No Family History Records FoundNo Family History Records FoundNo Family History Records FoundNo Family History Records Found Advance Directives No Advanced Directives Records FoundNo Advanced Directives Records FoundNo Advanced Directives Records FoundNo Advanced Directives Records Found Additional Source Comments INFORMATION SOURCE (unrecogn ized section and content) DATE CREATED AUTHOR 07/01/2022 [facility] DATE CREATED AUTHOR AUTHOR'S ORGANIZ ATION 08/25/2022 [facility] DATE CREATED AUTHOR AUTHOR'S ORGANIZ ATION 09/02/2022 [facility] DATE CREATED AUTHOR AUTHOR'S ORGANIZ ATION 11/14/2023 [facility] EPIC Patient Care team informatio n (unrecognized section and content) Personnel Name: JOSE HARRIS MD Address: Address: [address] [place] [address] Personnel Name: JOSE HARRIS MD Address: Address: [address] [place] [address] FOR RECORDS PERTAINING TO PATIENTS WHO ARE [...] BE BASED ON THE PRIMARY CLINICAL RECORDS. [facility]. provides no warranty or guarantee of the accuracy or completeness of information in this document.
== END 2024-02-23 10:07 | disposition home or self-care (01) ==
LOC: MAMMO 10:07
PROVIDERS: PCP Family Medicine; Visit Provider Physician Assistant
DX: Z12.31 Encounter for screening mammogram for malignant neoplasm of breast (principal)
CPT/HCPCS: 77063; 77067

== ENCOUNTER 2024-08-14 12:16 | Outpatient (REF) | payer OTHER, SELFPAY | END 2024-08-14 12:17 | disposition home or self-care (01) | LOC: LAB 12:16 | PROVIDERS: PCP Family Medicine; Visit Provider Physician Assistant | DX: Z01.419 Encounter for gynecological examination (general) (routine) without abnormal findings (principal) | CPT/HCPCS: 88175 ==

== ENCOUNTER 2025-02-25 09:07 | Outpatient (OUT) | payer OTHER, SELFPAY ==
--- OUTSIDE RECORDS SUMMARY | 2025-02-25 09:10 | XMS_ITS | Encounter Summary ---
Author Organization [facility] Address [address] [place] [address] Care Team Providers Care Forepart Laster Name Role Phone Eduardo Jones MD Primary Care Provider [phone] Migdalia Chua MD Primary Care Provider [phone] Encounter Details Date Type Department Care Team (Late st Contact Info) Description 08/24/2024 Orders Only [facility] [address] [place] [address] Katherin Mcduffiesoadeline [place] [address] [place] [address] Social History Tobacco Use Types Packs/Day Years Used Date Smoking Tobacco: Never Smokeless Tobacco: Never Alcohol Use Standard Drinks/Week Comments Yes 0 (1 standard drink = 0.6 oz pur e alcohol) Not often B1300 Health Literacy Answer Date Recor ded How often do you need to hav e someone help you when you read instructions, pamphlets, or other written material from your doctor or pharmacy? Never 11/08/2023 Social Connection and Isolation Panel [NHANES] A nswer Date Recorded In a typical week, how many times do you talk on the phone with family, friends, or neighbors? Three times a week 11/08/2023 How often do you get togethe r with friends or relatives? Once a week 11/08/2023 How often do you attend chur ch or confucianist services? Never 11/08/2023 Do you belong to any clubs o r organizations such as temple groups, unions, fraternal or athletic groups, or school groups? Patient declined 11/08/2023 How often do you attend meet ings of the clubs or organizations you belong to? Patient declined 11/08/2023 Are you , , di vorced, , never , or living with a partner? 11/08/2023 AUDIT-C Answer Date Recorded Q1: How often do you have a drink containing alc ohol? Monthly or less 11/08/2023 Q2: How many drinks containi ng alcohol do you have on a typical day when you are drinking? 1 or 2 11/08/2023 Q3: How often do you have si x or more drinks on one occasion? Never 11/08/2023 Overall Financial Resource Strain (CARDIA) Answe r Date Recorded How hard is it for you to pa y for the very basics like food, housing, medical care, and heating? Not hard at all 11/08/2023 [facility] of Occupat ional Health - Occupational Stress Questionnaire Answer Date Recorded Do you feel stress - tense, restless, nervous, or anxious, or unable to sleep at night because your mind is troubled all the time - these days? Not at all 11/08/2023 Exercise Vital Sign Answer Date Recorde d On average, how many days pe r week do you engage in moderate to strenuous exercise (like a brisk walk)? 5 days 11/08/2023 On average, how many minutes do you engage in exercise at this level? 50 min 11/08/2023 Hunger Vital Sign Answer Date Recorded Within the past 12 months, y ou worried that your food would run out before you got the money to buy more. Never true 11/08/19 24 Within the past 12 months, t he food you bought just didn't last and you didn't have money to get more. Never true 11/08/2023 PRAPARE - Transportation Answer Date Re corded In the past 12 months, has l ack of transportation kept you from medical appointments or from getting medications? No 10/21 In the past 12 months, has l ack of transportation kept you from meetings, work, or from getting things needed for daily living? No 11/08/2023 Housing Stability Vital Sign Answer Abundio e Recorded In the last 12 months, was t here a time when you were not able to pay the mortgage or rent on time? No 11/08/2023 In the past 12 months, how m any times have you moved where you were living? 0 11/08/2023 At any time in the past 12 m [facility], were you homeless or living in a residential (including now)? No 11/08/2023 Comments No Sex and Gender Information Value Date Recorded Sex Assigned at Female 11/11/2022 8:42 AM EDT Legal Sex Female 11:47 PM EDT Gender Identity Female 11/11/2022 8:42 AM EDT Sexual Orientation Not on file documented as of this encounter Plan of Treatment Upcoming Encounters Date Type Department Care Team (Late st Contact Info) Description 09/04/2025 10:00 AM EDT Procedure Visit [facility] [address] [place] [address] Maryanne Arroyo PA [address] [place] [address] 11/08/2025 10:30 AM EDT [facility] [address] [place] [address] Kirti Mullins NP [address] [place], [place] [phone] documented as of this encounter Procedures Procedure Name Priority Date/Time Associated Diagnosis Comments PAP SMEAR Routine 08/14/2024 12:00 AM EDT documented in this encounter Results * Pap Smear (08/14/2024 12:00 AM EDT) Swab Cervical swab / Unknown us [facility]anne [facility] CYTOLOGY ORDERABLES Final Re sult EXTERNAL LAB documented in this encounter Visit Diagnoses Not on filedocumented in this encounter Care Teams Forepart Laster Relationship Specialty Start Date End Date Eduardo Jones MD PCP - General Family Medicine 11/18/22 01/28/25 Migdalia Chua MD [address] [place] [address] PCP - General Family Medicine 01/29/25 documented as of this encounter
--- OUTSIDE RECORDS SUMMARY | 2025-02-25 09:10 | XMS_ITS | Encounter Summary ---
Author Organization [facility] Address [address] [facility] [place] [address] Care Team Providers Care Rate Setter Name Role Phone Eduardo Jones MD Primary Care Provider [phone] Migdalia Chua MD Primary Care Provider [phone] Encounter Details Date Type Department Care Team (Late st Contact Info) Description 12/10/2024 Orders Only [facility] [address] [place] [address] Eduardo Jones MD [address] [place] [address] Social History Tobacco Use Types Packs/Day Years [...] week 11/08/2023 How often do you attend [facility] or buddhist services? Never 11/08/2023 Do you belong to any clubs o r organizations such as baptism groups, unions, fraternal or athletic groups, or [...] and heating? Not hard at all 11/08/2023 [facility] of Occupat ional [facility] - Occupational Stress Questionnaire Answer Date Recorded [...] were you homeless or living in a halfway (including now)? No 11/08/2023 Comments No Sex [...] Description 09/04/2025 10:00 AM EDT Procedure Visit CURTIS CHANDLER [address] [place] [address] Maryanne Arroyo PA [address] [place] [address] 11/08/2025 10:30 AM EDT Office Visit [facility] [address] [facility] [place] [phone] Kirti Mullins NP [address] [place] [address] documented as of this encounter Visit Diagnoses Not on filedocumented in this encounter Care Teams Rate Setter Relationship Specialty Start Date End Date Eduardo Jones MD PCP - General Family Medicine 11/18/22 01/28/25 Migdalia Chua MD [address] [facility] [address] [place], [place] [phone] PCP - General Family Medicine 01/29/25 documented as of this encounter
--- OUTSIDE RECORDS SUMMARY | 2025-02-25 09:10 | XMS_ITS | Clinical Summary ---
Author Organization [facility] Healthcare Address [address] [place] [address] Care Team Providers Care Pipe Smoking Machine Operator Name Role Phone Migdalia Chua MD Primary Care Provider [phone] Allergies Active Allergy Reactions Criticality Noted Date Comments Sulfamethoxazole-Trimethoprim Rash Low 2022 Medications loratadine (Claritin) 10 MG tablet 1 (one) time each day at the same time. Active Multiple Vitamin (Multivitamin Adult) tablet 1 (one) time each day at the same time. 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 Discussed proper diet and regular aerobic exercise. Need aerobic exercise 5-6 days a week for 30 minutes at a time. Smaller portions and limit total calories. Tetanus every 10 years. Advised not to smoke. Assessment & Plan (11/14/2023 8:41 AM EDT): Due for labs. Discussed proper diet and regular aerobic exercise. Need aerobic exercise 5-6 days a week for 30 minutes at a time. Smaller portions and limit total calories. Cologuard normal in 2021. Tetanus every 10 years. Advised not to smoke. Discussed daily Aspirin therapy. Encounters Date Type Department Care Team Description 01/29/2025 10:00 AM EDT Office Visit [facility] [address] [place] [address] Kirti Mullins NP Encounter to establish care with new provider (Primary Dx) 01/29/2025 Bamboo flowsheet [facility] [address] [place] [address] Kirti Mullins NP 01/29/2025 Travel 01/23/2025 Travel 01/11/2025 Refill [facility] [address] [place] [address] Eduardo Jones MD Primary hypertension 12/10/2024 Orders Only [facility] [address] [place] [address] Eduardo Jones MD from Last 3 Months Family History Medical History Relation Name Comments Cancer Father R.A.T. Arthritis Mother SAT Osteoarthritis Mother SAT Relation Name Status Comments Father R.A.T. Mother SAT Alive Social History Tobacco Use Types Packs/Day Years Used Date Smoking Tobacco: Never Smokeless Tobacco: Never Tobacco Cessation:Counseling Given: Not Answered Alcohol Use Standard Drinks/Week Comments Yes 0 [...] week 11/08/2023 How often do you attend [facility] or temple services? Never 11/08/2023 Do you belong to any clubs o r organizations such as latter day groups, unions, fraternal or athletic groups, or [...] and heating? Not hard at all 11/08/2023 [facility] of Occupat ional [facility] - Occupational Stress Questionnaire Answer Date [...] any time in the past [address] [facility], were you homeless or living in a penitentiary (including now)? No 11/08/2023 Comments No Sex and Gender Information Value Date Recorded Sex Assigned at Female 11/11/2022 8:42 AM EDT Legal Sex Female 11:47 PM EDT Gender Identity Female 11/11/2022 8:42 AM EDT Sexual Orientation Not on file Last Filed Vital Signs Vital Sign Reading Time Taken Comments Blood Pressure 124/76 01/29/2025 10:01 AM EDT Pulse 70 01/29/2025 10:01 AM EDT Temperature 36.3 C (97.3 F) 01/29/2025 10:01 AM EDT Respiratory Rate 22 11/07/2024 8:04 AM EDT Oxygen Saturation 97% 01/29/2025 10: 01 AM EDT Inhaled Oxygen Concentration - - Weight 59.8 kg (131 lb 12.8 oz) 025 10:01 AM EDT Height 157.5 cm (5' 2 ) 11/07/2024 8:04 AM EDT Body Mass Index 24.11 11/07/2024 8:04 AM EDT Plan of Treatment Upcoming Encounters Date Type Department Care Team (Late st Contact Info) Description 09/04/2025 10:00 AM EDT Procedure Visit [facility] [address] [place] [phone] Maryanne Arroyo PA [address] [place] [address] 11/08/2025 10:30 AM EDT Office Visit [facility] [address] [place] [phone] Kirti Mullins NP [address] [facility] [place] [address] Health Maintenance Due Date Last Done Comments CT Colonography 1965 Colonoscopy 1965 FIT 1965 FOBT 1965 Sigmoidoscopy 1965 Influenza Vaccine (#1) 2025 Mammogram 02/22/2025 02/23/2024, 06/2022, 03/22/2022, Additional history exists Colorectal Cancer Screening 11/13/2027 FIT-DNA 11/13/2027 11/12/2024, 08/27/2021, 11/20 Cervical Cancer Screening 08/14/2029 HPV/Cotest 08/14/2029 Pap Smear 08/14/2029 08/14/2024 Procedures Procedure Name Priority Date/Time Associated Diagnosis Comments LAB COLOGUARD COLON CANCER SCREEN Routine 11/12/2024 7:30 AM EDT Colon cancer screening PAP SMEAR Routine 08/14/2024 12:00 AM EDT MM TOMOSYNTHESIS SCREENING BI 02/23/2024 12:22 PM EDT from Last 3 Months or Most Recently Relevant to Health Maintenance Results * Cologuard?? colon cancer screening (11/12/2024 7:30 AM EDT) NONINV COLON CA DNA+OCC BLD SCRN STL-IMP Negative Negative 11/15/2024 12:20 PM EDT [employer] (CLIA #:[id number]) Comment: The Cologuard (TM) test was performed on this specimen. NEGATIVE TEST RESULT. A negative Cologuard result indicates a low likelihood that a colorectal cancer (CRC) or advanced adenoma (adenomatous polyps with more advanced pre-malignant features) is present. The chance that a person with a negative Cologuard test has a colorectal cancer is less than 1 in 1500 (negative predictive value >99.9%) or has an advanced adenoma is less than 5.3% (negative predictive value 94.7%). These data are based on a prospective cross-sectional study of 10,000 individuals at average risk for colorectal cancer who were screened with both Cologuard and colonoscopy. (Bart Stover, N Engl J Med 2014;370(14):1286- 1297) The normal value (reference range) for this assay is negative. COLOGUARD RE-SCREENING RECOMMENDATION: Periodic colorectal cancer screening is an important part of preventive healthcare for asymptomatic individuals at average risk for colorectal cancer. Following a negative Cologuard result, the [place] Cancer Society and U.S. Multi-Society Task Force screening guidelines recommend a Cologuard re-screening interval of 3 years. References: [place] [employer] Society Guideline for Colorectal Cancer Screening: https://www.cancer.org/cancer/diznl-civybb-dbtnhp/trvibmjkc-iparhyxqv-vchoeeh/ac s-rec ommendations.html.; Sammy DK, Jose CONCEPCION, Laila GaonaK, Colorectal Cancer Screening: Recommendations for Physicians and Patients from the U.S. Multi-Society Task Force on Colorectal Cancer Screening , Am J Gastroenterology 2017; 112:9265-5558. TEST DESCRIPTION: Composite algorithmic analysis of stool DNA-biomarkers with hemoglobin immunoassay. Quantitative values of individual biomarkers are not reportable and are not associated with individual biomarker result reference ranges. Cologuard is intended for colorectal cancer screening of adults of either sex, 45 years or older, who are at average-risk for colorectal cancer (CRC). Cologuard has been approved for use by the U.S. FDA. The performance of Cologuard was established in a cross sectional study of average-risk adults aged 50-84. Cologuard performance in patients ages 45 to 49 years was estimated by sub-group analysis of near-age groups. Colonoscopies performed for a positive result may find as the most clinically significant lesion: colorectal cancer [4.0%], advanced adenoma (including sessile serrated polyps greater than or equal to 1cm diameter) [20%] or non- advanced adenoma [31%]; or no colorectal neoplasia [45%]. These estimates are derived from a prospective cross-sectional screening study of 10,000 individuals at average risk for colorectal cancer who were screened with both Cologuard and colonoscopy. (Bart Stover, N Engl J Med 2014;370(14):8840-3725.) Cologuard may produce a false negative or false positive result (no colorectal cancer or precancerous polyp present at colonoscopy follow up). A negative Cologuard test result does not guarantee the absence of CRC or advanced adenoma (pre-cancer). The current Cologuard screening interval is every 3 years. ([place] Cancer Society and U.S. Multi-Society Task Force). Cologuard performance data in a 10,000 patient pivotal study using colonoscopy as the reference method can be accessed at the following location: www.[employer].com.[employer]/results. Additional description of the Cologuard test process, warnings and precautions can be found at www.cologuard.com. Stool specimen (specimen) 11/12/2024 7:30 AM EDT 11/13/2024 9:43 AM EDT Eduardo Jones MD LAB MOLECULAR DIAGNOSTICS ORDERA BLES Final Result Performing Organization Address [facility] de Phone Number [employer] (CLIA #:[id number]) [place] [address], * Pap Smear (08/14/2024 12:00 AM EDT) Swab Cervical swab / Unknown Maryanne DAUGH[facility] LAB CYTOLOGY ORDERABLES Final Re sult Performing Organization Address [facility] Co de Phone Number EXTERNAL LAB * MM TOMOSYNTHESIS SCREENING BI (02/23/2024 12:22 PM EDT) Anatomical Region Laterality Modality Other 02/23/2024 12:2 2 PM EDT Narrative 02/23/2024 12:23 [place] [address] Mammography Report Signed Patient: AMANDA FRAGOSO MR#: [id number] : 1965 Acct:[id number] Age/Sex: 59 / F ADM Date: 02/23/24 Loc: MAMMO Attending Dr: Maryanne rAroyo Ordering Physician: Maryanne Arroyo Results: Date of Service: 02/23/24 Follow Up: Procedure(s): MM tomosynthesis screening BI Accession Number(s): [id number] cc: Eduardo Torres M.D. Patient Name: AMANDA FRAGOSO MR#: [id number] : 1965 Exam Date: 02/23/2024 Ordering Doctor: DAT Arroyo . RADIOLOGY REPORT PROCEDURE: MM TOMOSYNTHESIS SCREENING BI COMPARISON: MM TOMOSYNTHESIS SCREENING BI, 02/21/2023. MG MAMM SCREEN 3D OCATVIO CAD, 02/15/2022. INDICATIONS: Screening Calculator Name NCI Breast Cancer Risk Assessment Tool 5 Year Breast Cancer Risk 1.00% Lifetime Breast Cancer Risk 5.30% Personal Breast Cancer No Personal Ovarian Cancer No Treatments None Family Cancers None LOCATION: [facility] BREAST COMPOSITION: There are scattered areas of fibroglandular density. FINDINGS: DIAGNOSTIC CATEGORY 1--NEGATIVE. NO [...] LUMP SHOULD BE BIOPSIED. Dictated by: Nas Parker MD on 02/23/2024 at 12:20 Approved by: Nas Parker MD on 02/23/2024 at 12:21 Dictated By: Nas Parker M.D. Signed By: 02/23/24 1223 DD/ 1222 TD/TT: Olive Picker: Procedure Note Radiology, Radiologist, MD - 02/23/2024 [place] [address] Mammography Report Signed Patient: AMANDA FRAGOSO JMR#: [id number] : 1965Acct:[id number] Age/Sex: 59 / FADM Date: 02/23/24 Loc: MAMMO Attending Dr: Maryanne Arroyo Ordering Physician: Maryanne ArroyoResults: Date of Service: 02/23/24Follow Up: Procedure(s): MM tomosynthesis screening BI Accession Number(s): [id number] cc: Eduardo Torres M.D. Patient Name: AMANDA FRAGOSO MR#: [id number] : 1965 Exam Date: 02/23/2024 Ordering Doctor: DAT Arroyo . RADIOLOGY REPORT PROCEDURE: MM TOMOSYNTHESIS SCREENING BI COMPARISON: MM TOMOSYNTHESIS SCREENING BI, 02/21/2023. MG MAMM [id number] OCTAVIO CAD, 02/15/2022. INDICATIONS: Screening Calculator Name NCI Breast Cancer Risk Assessment Tool 5 Year Breast Cancer Risk 1.00% Lifetime Breast Cancer Risk 5.30% Personal Breast Cancer No Personal Ovarian Cancer No Treatments None Family Cancers None LOCATION: [facility] BREAST COMPOSITION: There are scattered areas of fibroglandulardensity. FINDINGS: DIAGNOSTIC CATEGORY 1--NEGATIVE. NO CHANGE FROM COMPARISON ASSESSMENT. Scattered benign-appearing calcifications are present. Scattered benign-appearing lymph nodes are present. RIGHT BREAST: No significant suspicious finding. LEFT BREAST: No significant suspicious finding. RECOMMENDATIONS: ROUTINE MAMMOGRAM AND CLINICAL EVALUATION IN 12 MONTHS. PLEASE NOTE: A NORMAL MAMMOGRAM DOES NOT EXCLUDE THE POSSIBILITY OFBREAST CANCER. A CLINICALLY SUSPICIOUS PALPABLE LUMP SHOULD BE BIOPSIED. Dictated by: Nas Parker MD on 02/23/2024 at 12:20 Approved by: Nas Parker MD on 02/23/2024 at 12:21 Dictated By: Nas Parker M.D. Signed By:02/23/24 1223 DD/ 1222 TD/TT: Olive Picker: Generic External Data Provider [facility] Final Result from Last 3 Months or Most Recently Relevant to Health Maintenance Insurance [employer] Care Teams Pipe Smoking Machine Operator Relationship Specialty Start Date End Date Migdalia Chua MD [address] [place] [address] PCP - General Family Medicine 01/29/25
--- OUTSIDE RECORDS SUMMARY | 2025-02-25 09:10 | XMS_ITS | Clinical Summary ---
Author Organization [facility] Address [id number] [place] [address] Care Team Providers Care Blow Machine Tender Starch Spraying Name Role Phone Unavailable Primary Care Provider Unavailabl e Social History Tobacco Use Types Packs/Day Years Used Date Smoking Tobacco: Never Assessed Childcare Answer Date Recorded Childcare Unknown 11/01/2018 Employment Answer Date Recorded Employment Unknown 11/01/2018 Comments Unknown Sex and Gender Information Value Date Recorded Sex Assigned at Not on file Legal Sex Female 11:43 AM EDT Gender Identity Not on file Sexual Orientation Not on file Plan of Treatment Not on file Medical Devices Not on file
--- OUTSIDE RECORDS SUMMARY | 2025-02-25 09:10 | XMS_ITS | Encounter Summary ---
Author Organization [facility] Address [address] [place] [address] Care Team Providers Care Accounts Receivable Bookkeeper Name Role Phone Eduardo Jones MD Primary Care Provider [phone] Migdalia Chua MD Primary Care Provider [phone] Encounter Details Date Type Department Care Team (Late st Contact Info) Description 07/14/2023 Clinisync Result Encounter [facility] External Department Unsolicited Maryanne Adams PA [address] [place] [address] Social History Tobacco Use Types Packs/Day Years Used Date Smoking Tobacco: Never Smokeless Tobacco: Never Alcohol Use Standard Drinks/Week Comments Yes 0 (1 standard drink = 0.6 oz pure alcohol) Not often, Caffeine intake: 1-2 cups per day Comments No Sex and Gender Information Value Date Recorded Sex Assigned at Female 11/11/2022 8:42 AM EDT Legal Sex Female 11:47 PM EDT Gender Identity Female 11/11/2022 8:42 AM EDT Sexual Orientation Not on file documented as of this encounter Plan of Treatment Upcoming Encounters Date Type Department Care Team (Late st Contact Info) Description 09/04/2025 10:00 AM EDT Procedure Visit [facility] [address] [phone] Maryanne Adams PA [address] [place] [address] 11/08/2025 10:30 AM EDT Office Visit [facility] Medicine [address] [place] [address] Kirti Mullins NP [address] [place], [place] [phone] documented as of this encounter Procedures Procedure Name Priority Date/Time Associated Diagnosis Comments XR DEXA AXIAL SKELETON 07/14/2023 10:13 AM EST documented in this encounter Results * XR DEXA AXIAL SKELETON (07/14/2023 10:13 AM EST) Anatomical Region Laterality Modality Other 07/14/2023 10:1 3 AM EST Narrative 07/14/2023 10:17 AM EST [address] [address] XRay Report Signed Patient: HELEN FRAGOSO MR#: [id number] : 1965 Acct:[id number] Age/Sex: 58 / F ADM Date: 07/14/23 Loc: RAD Attending Dr: Maryanne Adams Ordering Physician: Maryanne Adams Date of Service: 07/14/23 Procedure(s): XR DEXA axial skeleton Accession Number(s): [id number] cc: Maryanne Adams; Eduardo Jones M.D. [address] [address] Patient Name: HELEN FRAGOSO MRN: [id number] date: 1965 Sex: F Assigned Patient Location: [facility] Current Patient Location: [facility] Accession/Order Number: [id number] Exam Date: 07/14/2023 09:55 Report Date: 07/14/2023 10:13 At the request of: MARYANNE ADAMS Procedure: XR DEXA axial skeleton EXAMINATION: XR DEXA axial skeleton HISTORY: postmenopausal state Z78.0 COMPARISON: No relevant comparison available. TECHNIQUE: Dual-energy X-ray absorptiometry (DXA) was performed. FINDINGS: SPINE ANALYSIS: Average bone mineral density is 1.031 g/cm2. T-score (standard deviation relative to young adult mean): -1.2 . HIP ANALYSIS: Lowest bone mineral density is within the left femoral neck, 0.771 g/cm2. T-score (standard deviation relative to young adult mean): -1.9 . XR/XR DEXA axial skeleton IMPRESSION: World Jas[employer] Organization Classification: Osteopenia - Moderate Fracture Risk Electronically authenticated by: ALEAH MERRILL Date: 07/14/2023 10:13 Dictated By: Aleah Merrill M.D. Signed By: 07/14/23 1017 DD/ 1013 TD/TT: Printer Assistant: Procedure Note Radiology, Radiologist, MD - 07/27/2023 [place] [address] XRay Report Signed Patient: HELEN FRAGOSO JMR#: [id number] : 1965Acct:[id number] Age/Sex: 58 / FADM Date: 07/14/23 Loc: [facility] Attending Dr: Maryanne Adams Ordering Physician: Maryanne Adams Date of Service: 07/14/23 Procedure(s): XR DEXA axial skeleton Accession Number(s): [id number] cc: Maryanne Adams; Eduardo Jones M.D. The [place] [id number] Patient Name: HELEN FRAGOSO MRN: [id number] date: 1965 Sex: F Assigned Patient Location: [facility] Current Patient Location: [facility] Accession/Order Number: [id number] Exam Date: 07/14/2023 09:55 Report Date: 07/14/2023 10:13 At the request of: MARYANNE ADAMS Procedure: XR DEXA axial skeleton EXAMINATION: XR DEXA axial skeleton HISTORY: postmenopausal state Z78.0 COMPARISON: No relevant comparison available. TECHNIQUE: Dual-energy X-ray absorptiometry (DXA) was performed. FINDINGS: SPINE ANALYSIS: Average bone mineral density is 1.031 g/cm2. T-score (standard deviation relative to young adult mean): -1.2 . HIP ANALYSIS: Lowest bone mineral density is within the left femoral neck, 0.771 g/cm2. T-score (standard deviation relative to young adult mean): -1.9 . XR/XR DEXA axial skeleton IMPRESSION: World Jasen Organization Classification: Osteopenia - Moderate FractureRisk Electronically authenticated by: ALEAH MERRILL Date: 07/14/2023 10:13 Dictated By: Aleah Merrill M.D. Signed By:07/14/23 1017 DD/ 1013 TD/TT: Printer Assistant: Maryanne DAUGHERTY [facility] Final Result documented in this encounter Visit Diagnoses Not on filedocumented in this encounter Care Teams Accounts Receivable Bookkeeper Relationship Specialty Start Date End Date Eduardo Jones MD PCP - General Family Medicine 11/18/22 01/28/25 Migdalia Chua MD [address] [place] [address] PCP - General Family Medicine 01/29/25 documented as of this encounter
--- OUTSIDE RECORDS SUMMARY | 2025-02-25 09:10 | XMS_ITS | Clinical Summary ---
Author Organization [facility] Address [address] [place] [address] Phone Care Team Providers Care Railcar Foreman Name Role Phone Unavailable Primary Care Provider Unavailabl e Social History Tobacco Use Types Packs/Day Years Used Date Smoking Tobacco: Never Assessed Comments Unknown Sex and Gender Information Value Date Recorded Sex Assigned at Not on file Legal Sex Female 1:31 PM EDT Gender Identity Not on file Sexual Orientation Not on file Plan of Treatment Health Maintenance Due Date Last Done Comments CT Colonography 1965 Colonoscopy 1965 Colorectal Cancer Screening 1965 FIT-DNA (Cologuard) 1965 FIT 1965 HIV Screening 1965 Lipid Panel 1965 Sigmoidoscopy 1965 Yearly Adult Physical 1965 MMR Vaccines (1 of 1 - Stand brigida series) 01/21/1965 Hepatitis C Screening 01/21/1982 Cervical Cancer Screening 01/21/1985 HPV/Cotest 01/21/1985 Pap Smear 01/21/1985 DTaP/Tdap/Td Vaccines (1 - Tdap) 01/21/1986 Mammogram 2004 Pneumococcal Vaccine (1 of 1 - PCV) 01/21/2014 Zoster Vaccines (1 of 2) 01/21/2014 COVID-19 Vaccine (1 - 2023-2 5 season) 2025 Influenza Vaccine (#1) 2025 RSV High Risk: (Elderly (60+ ) or Population) (1 - 1-dose 75+ series) 01/21/2039 HIB Vaccines Aged Out No longer eligi ble based on patient's age to complete this topic HPV Vaccines Aged Out No longer eligi ble based on patient's age to complete this topic Hepatitis A Vaccines Aged Out No long er eligible based on patient's age to complete this topic Hepatitis B Vaccines Aged Out No long er eligible based on patient's age to complete this topic IPV Vaccines Aged Out No longer eligi ble based on patient's age to complete this topic Meningococcal Vaccine Aged Out No medardo sharron eligible based on patient's age to complete this topic Rotavirus Vaccines Aged Out No longer eligible based on patient's age to complete this topic
--- OUTSIDE RECORDS SUMMARY | 2025-02-25 09:10 | XMS_ITS | Encounter Summary ---
Author Organization [facility] Address [address] [facility] [place] [address] Care Team Providers Care Superintendent Stations Name Role Phone Eduardo Jones MD Primary Care Provider Migdalia Chua MD Primary Care Provider [phone] Encounter Details Date Type Department Care Team (Late st Contact Info) Description 11/13/2024 Results [facility] [address] [place] [address] Eduardo Jones MD [address] [facility] [address] [address] Hemoglobin A1c, Basic metabolic panel, CBC and differential, Additional followed-up results: 4 Social History Tobacco Use Types Packs/Day Years [...] week 11/08/2023 How often do you attend [facility] or zoroastrian services? Never 11/08/2023 Do you belong to any clubs o r organizations such as samaritan groups, unions, fraternal or athletic groups, or [...] and heating? Not hard at all 11/08/2023 [facility] - Occupational Stress Questionnaire Answer Date [...] any time in the past 12 m ont, were you homeless or living in a care home (including now)? No 11/08/2023 Comments No Sex [...] AM EDT Procedure Visit [facility] [address] [place] [address] Maryanne Arroyo PA [address] [place] [address] 11/08/2025 10:30 AM EDT Office Visit [facility] [address] [facility] [place] [phone] Kirti Mullins NP [address] [facility] [place] [phone] documented as of this encounter Visit Diagnoses Not on filedocumented in this encounter Care Teams Superintendent Stations Relationship Specialty Start Date End Date Eduardo Jones MD PCP - General Family Medicine 11/18/22 01/28/25 Migdalia Chua MD [address] [facility] [address] [phone] PCP - General Family Medicine 01/29/25 documented as of this encounter
--- OUTSIDE RECORDS SUMMARY | 2025-02-25 09:10 | XMS_ITS | Encounter Summary ---
Author Organization [facility] Address [address] [place] [place] [address] Care Team Providers Care Dough Machine Operator Name Role Phone Eduardo Jones MD Primary Care Provider Migdalia Chua MD Primary Care Provider [phone] Reason for Visit * Reason Comments Med Refill Encounter Details Date Type Department Care Team (Late st Contact Info) Description 08/17/2024 [facility] [address] [place] [address] Eduardo Jones MD [address] [facility] [place] [phone] Primary hypertension Social History Tobacco Use Types Packs/Day Years [...] week 11/08/2023 How often do you attend [facility] or sabianism services? Never 11/08/2023 Do you belong to any clubs o r organizations such as orthodoxy groups, unions, fraternal or athletic groups, or [...] and heating? Not hard at all 11/08/2023 [facility] - Occupational Stress [...] any time in the past 12 m [facility], were you homeless or living in a longterm (including now)? No 11/08/2023 Comments No Sex and Gender Information Value Date Recorded Sex Assigned at Female 11/11/2022 8:42 AM EDT Legal Sex Female 11:47 PM EDT Gender Identity Female 11/11/2022 8:42 AM EDT Sexual Orientation Not on file documented as of this encounter Miscellaneous Notes * Telephone Encounter - Ann Marie Irene MA - 08/20/2024 9:07 AM EDT MEDICATION SENT TO [facility] documented in this encounter Plan of Treatment Upcoming Encounters Date Type Department Care Team (Late st Contact Info) Description 09/04/2025 10:00 AM EDT Procedure Visit [facility] [address] [place] [phone] Maryanne Arroyo PA [address] [place], [place] [phone] 11/08/2025 10:30 AM EDT Office Visit [facility] [address] [place] [address] Kirti Mullins NP [address] [place], [place] [phone] documented as of this encounter Visit Diagnoses Diagnosis Primary hypertension Unspecified essential hypertension documented in this encounter Care Teams Dough Machine Operator Relationship Specialty Start Date End Date Eduardo Jones MD PCP - General Family Medicine 11/18/22 01/28/25 Migdalia Chua MD [address] [place] [address] PCP - General Family Medicine 01/29/25 documented as of this encounter
--- OUTSIDE RECORDS SUMMARY | 2025-02-25 09:10 | XMS_ITS | Encounter Summary ---
Author Organization [facility] Address [address] [facility] [place] [address] Care Team Providers Care Fire Lieutenant Marine Name Role Phone Eduardo Jones MD Primary Care Provider [phone] Migdalia Chua MD Primary Care Provider [phone] Encounter Details Date Type Department Care Team (Late st Contact Info) Description 02/23/2024 Clinisync Result Encounter [facility] External Department Unsolicited Provider, Generic External Data Social History Tobacco Use Types Packs/Day Years [...] often do you attend chur ch or cheondoism services? Never 11/08/2023 Do you belong to any clubs o r organizations such as sikh groups, unions, fraternal or athletic groups, or [...] and heating? Not hard at all 11/08/2023 [facility] Health - Occupational Stress [...] any time in the past 12 m [facility], were you homeless or living in a long-term (including now)? No 11/08/2023 Comments No Sex [...] EDT Procedure Visit [facility] [address] [address] Maryanne Arroyo PA [address] [place] [address] 11/08/2025 10:30 AM EDT Office Visit [facility] Medicine [address] [place] [phone] Kirti Mullins NP [address] [place], [place] [phone] documented as of this encounter Procedures Procedure Name Priority Date/Time Associated Diagnosis Comments MM TOMOSYNTHESIS SCREENING BI 02/23/2024 12:22 PM EDT documented in this encounter Results * MM TOMOSYNTHESIS SCREENING BI (02/23/2024 12:22 PM EDT) Anatomical Region Laterality Modality Other 02/23/2024 12:2 2 PM EDT Narrative 02/23/2024 12:23 PM EDT The [address] [address] Mammography Report Signed Patient: HELEN FRAGOSO MR#: [id number] : 1965 Acct:[id number] Age/Sex: 59 / F ADM Date: 02/23/24 Loc: MAMMO Attending Dr: Maryanne Arroyo Ordering Physician: Maryanne Arroyo Results: Date of Service: 02/23/24 Follow Up: Procedure(s): MM tomosynthesis screening BI Accession Number(s): [id number] cc: Eduardo Torres M.D. Patient Name: HELEN FRAGOSO MR#: [id number] : 1965 Exam Date: 02/23/2024 Ordering Doctor: DAT Arroyo . RADIOLOGY REPORT PROCEDURE: MM TOMOSYNTHESIS SCREENING BI COMPARISON: MM TOMOSYNTHESIS SCREENING BI, 02/21/2023. MG MAMM SCREEN 3D OCTAVIO CAD, 02/15/2022. INDICATIONS: Screening Calculator Name NCI Breast Cancer Risk Assessment Tool 5 Year Breast Cancer Risk 1.00% Lifetime Breast Cancer Risk 5.30% Personal Breast Cancer No Personal Ovarian Cancer No Treatments None Family Cancers None [facility] BREAST COMPOSITION: There are scattered areas [...] BIOPSIED. Dictated by: Nas Robb MD on 02/23/2024 at 12:20 Approved by: Nas Robb MD on 02/23/2024 at 12:21 Dictated By: Nas Robb M.D. Signed By: 02/23/24 1223 DD/ 1222 TD/TT: Retail Analytics Manager: Procedure Note Radiology, Radiologist, MD - 02/23/2024 [place] [address] Mammography Report Signed Patient: HELEN FRAGOSO JMR#: [id number] : 1965Acct:[id number] Age/Sex: 59 / FADM Date: 02/23/24 Loc: MAMMO Attending Dr: Maryanne Arroyo Ordering Physician: Maryanne ArroyoResults: Date of Service: 02/23/24Follow Up: Procedure(s): MM tomosynthesis screening BI Accession Number(s): [id number] cc: Eduardo Torres M.D. Patient Name: HELEN FRAGOSO MR#: [id number] : 1965 Exam Date: 02/23/2024 Ordering Doctor: DAT Arroyo . RADIOLOGY REPORT PROCEDURE: MM TOMOSYNTHESIS SCREENING BI COMPARISON: MM TOMOSYNTHESIS SCREENING BI, 02/21/2023. MG MAMM [id number] OCTAVIO CAD, 02/15/2022. INDICATIONS: Screening Calculator Name NCI Breast Cancer Risk Assessment Tool 5 Year Breast Cancer Risk 1.00% Lifetime Breast Cancer Risk 5.30% Personal Breast Cancer No Personal Ovarian Cancer No Treatments None Family Cancers None [facility]: [facility] BREAST COMPOSITION: There are scattered areas [...] BIOPSIED. Dictated by: Nas Robb MD on 02/23/2024 at 12:20 Approved by: Nas Robb MD on 02/23/2024 at 12:21 Dictated By: Nas Robb M.D. Signed By:02/23/24 1223 DD/ 122 TD/TT: Retail Analytics Manager: us Generic External Data Provider [facility] Final Result documented in this encounter Visit Diagnoses Not on filedocumented in this encounter Care Teams Fire Lieutenant Marine Relationship Specialty Start Date End Date Eduardo Jones MD PCP - General Family Medicine 11/18/22 01/28/25 Migdalia Chua MD [address] [place] [address] PCP - General Family Medicine 01/29/25 documented as of this encounter
--- OUTSIDE RECORDS SUMMARY | 2025-02-25 09:23 | XMS_ITS | CCD ---
Author Organization [facility] Care Team Providers Care String Winding Machine Operator Name Role Phone STEVEN, DR EDUARDO Oconnell Admitting Unavailable NADERER, DR EDUARDO Oconnell Attending Unavailable NADERER, DR EDUARDO Oconnell Primary Care Unavailable Zieber, DR Chowdary Consulting Unavailable NADERER, DR EDUARDO Oconnell Consulting Unavailable NADERER, DR EDUARDO Oconnell Admitting Unavailable NADERER, DR EDUARDO Oconnell Attending Unavailable NADERER, DR EDUARDO Oconnell Primary Care Unavailable NADERER, DR EDUARDO Oconnell Consulting Unavailable NADERER, DR EDUARDO Oconnell Admitting Unavailable NADERER, DR EDUARDO Oconnell Attending Unavailable NADERER, DR EDUARDO Oconnell Primary Care Unavailable [place], DR Lovell Consulting Unavailable NADERER, DR EDUARDO Oconnell Consulting Unavailable BRANDAN, DR DOYLE Admitting Unavailable BRANDAN, DR DOYLE Attending Unavailable NADERER, DR EDUARDO Oconnell Primary Care Unavailable BRANDAN, DR DOYLE Consulting Unavailable NADERER, EDUARDO Primary Care Physician Pocos, Lore Oconnell Admitting Unavailable Pocos, Lore Oconnell Referring Unavailable Pocos, Lore Oconnell Attending Unavailable Pocos, Lore Oconnell Referring Unavailable Pocos, Lore Oconnell Attending Unavailable Pocos, Lore Oconnell Admitting Unavailable Eduardo Harris MD Primary Care Provider [phone] Migdalia Chua MD Primary Care Provider MARYANNE ADAMS Attending Unavailable POCOS, LORE Oconnell Referring Unavailable POCOS, LORE Oconnell Attending Unavailable POCOS, LORE Oconnell Referring Unavailable NADERER, EDUARDO Attending Unavailable MAJORSROCHELLE Attending Unavailable Allergies Allergy Classification Reported Allergen(s) Allergy Type Date of Onset Reaction(s) Facility (11 sources) Sulfamethoxazole / Trimethoprim; Translations: [sulfamethoxazole-tri methoprim] Drug Allergy 3 [facility] Medications Current Medications Medication Drug Class(es) Dates Sig (Normalized) Sig (Original) ascorbic acid 60 mg / beta carotene 5000 unt / copper sulfate 40 mg / dl-alpha tocopheryl acetate 30 unt / sodium selenite 0.04 mg / zinc oxide 40 mg oral tablet (8 sources) Vitamin C Multiple Vitamin (Multivitamin Adult) tablet 1 (one) time each day at the same time. Active aspirin 81 mg delayed release oral tablet (1 source) Platelet Aggregation Inhibitor, Nonsteroidal Anti-inflammatory Drug Start: 08-17-2022 take 1 tablet by mouth twice daily aspirin 81 mg Oral EC Tab 81 mg = 1 tab(s), Oral, BID, # 60 tab(s), Refills(s) 0, Pharmacy: [facility], 158, cm, 07/29/22 12:08:00 EST, Height/Length Dosing, 58.6, kg, 07/29/22 12:08:00 EST, Weight Dosing Start Date: 08/17/22 Status: Ordered carvedilol 3.125 mg oral tablet (10 sources) alpha-Adrenergic Ciro, beta-Adrenergic Ciro Start: 01-14-2025 take 1 tablet by mouth twice daily carvedilol (Coreg) 3.125 MG tablet Indications: Primary hypertension Take 1 tablet by mouth twice daily 180 tablet 01/14/2025 Active Start: 08-20-2024 take 1 tablet by arvind th twice daily carvedilol (Coreg) 3.125 MG tablet Indications: Primary hypertension Take 1 tablet by mouth twice daily 180 tablet 08/20/2024 Active Start: 05-18-2024 take 1 tablet by arvind th twice daily carvedilol (Coreg) 3.125 MG tablet Indications: Primary hypertension (CMS/HCC) Take 1 tablet by mouth twice daily 180 tablet 05/18/2024 Active Start: 07-29-2022 take 1 tablet by arvind th twice daily carvedilol 3.125 mg Tab 3.125 mg = 1 tab(s), Oral, BID, Arrhythmia Start Date: 07/29/22 Status: Ordered cefadroxil 500 mg oral capsule (1 source) Cephalosporin Antibacterial Start: 08-17-2022 End: 08-19-2022 take 1 capsule by mouth every twelve hours cefadroxil 500 mg Cap 500 mg = 1 cap(s), Oral, q12hr, X 2 day(s), # 4 cap(s), Refills(s) 0, Pharmacy: [facility], 158, cm, 07/29/22 12:08:00 EST, Height/Length Dosing, 58.6, kg, 07/29/22 12:08:00 EST, Weight Dosing Start Date: 08/17/22 Stop Date: 08/19/22 Status: Ordered cephalexin 500 mg oral capsule (5 sources) Cephalosporin Antibacterial Start: 07-02-2024 End: 11-07-2024 cephalexin (Keflex) 500 MG capsule Indications: Presence of artificial hip joint, right Take all 4 capsules one hour before the procedure. 4 capsule 1 08/24/2024 11/07/2024 Discontinued docusate sodium 100 mg oral capsule (1 source) Start: 08-17-2022 take 1 capsule by mouth twice daily as needed for constipation Colace 100 mg Cap 100 mg = 1 cap(s), Oral, BID, PRN for constipation, # 40 cap(s), Refills(s) 0, Pharmacy: [facility], 158, cm, 07/29/22 12:08:00 EST, Height/Length Dosing, 58.6, kg, 07/29/22 12:08:00 EST, Weight Dosing Start Date: 08/17/22 Status: Ordered loratadine 10 mg oral tablet (8 sources) loratadine (Claritin) 10 MG tablet 1 (one) time each day at the same time. Active meloxicam 15 mg oral tablet (2 sources) [...] 7days, # 40 tab(s), Refills(s) 0, Pharmacy: [facility], 158, cm, 07/29/22 12:08:00 EST, Height/Length Dosing, 58.6, kg, 07/29/22 12:08:00 ES... Start Date: 08/17/22 Status: Ordered Problems Active Problems Problem Classification Problem Date Documented Da te Episodic/Chronic Administrative/social admission (2 sources) First encounter by subject; Translations: [Persons encountering health services in other specified circumstances] 01-29-2025 Episodic Cardiac dysrhythmias (2 sources) Cardiac arrhythmia 07-29-2022 Chronic Osteoarthritis (17 sources) Unilateral primary osteoarthritis, right hip; Translations: [Osteoarthritis of right hip joint] Onset: 06-30-2022 11-14-2023 Chronic Other aftercare (3 sources) Long-term current use of drug therapy; Translations: [Other intermediate accountant (current) drug therapy] Onset: 12-10-2024 12-10-2024 Episodic Other connective tissue disease (2 sources) Hip joint prosthesis present; Translations: [Presence of right artificial hip joint] 08-23-2024 Chronic Other non-traumatic joint disorders (4 sources) Pain in right hip; Translations: [PAIN IN RIGHT HIP] Onset: 06-28-2022 Episodic Other screening for suspected conditions (not mental disorders or infectious disease) (10 sources) Encounter for screening for malignant neoplasm of cervix; Translations: [Encounter for screening mammogram for malignant neoplasm of breast] Onset: 02-15-2022 Episodic Spondylosis; intervertebral disc disorders; other back problems (8 sources) Lumbosacral spondylosis without myelopathy; Translations: [Spondylosis without myelopathy or radiculopathy, lumbosacral region] Onset: 11-14-2023 11-14-2023 Chronic Sprains and strains (2 sources) Strain of flexor muscle of right hip; Translations: [Strain of muscle, fascia and tendon of right hip, initial encounter] 08-23-2024 Episodic Past or Other Problems Problem Classification Problem Date Documented Date Episodic/Chronic Cardiac dysrhythmias (8 sources) Palpitations; Translations: [Palpitations] Onset: 11-14-2023 11-14-2023 Episodic Diabetes mellitus without complication (8 sources) Prediabetes; Translations: [Prediabetes] Onset: 12-20-2023 12-20-2023 Episodic Immunizations and screening for infectious disease (1 source) Encounter for screening for human papillomavirus (HPV); Translations: [ENC SCREENING HUMAN PAPILLOMAVIRUS] Onset: 03-23-2022 Episodic Results Test Name Value Interpretation Reference Range Facility XR Hip - right 3 [facility] Result: X-ray AP pelvis, right hip total of three views with permanent images are saved to the record does show a well-fixed, well-aligned total hip arthroplasty on the left. No evidence of fracture, loosening or catastrophic wear. [facility] XR Hip - right 3 [facility] Study observation (narrative) [facility] IGP,APTIMA HPV,AGE GDLNon AGE GDLN ACOG TESTING Note . [facility] Comment on above: TESTS RESULT FLAG UN ITS REF RANGE LAB Clinician Provided Cytology Information Source.............Cervix;Endocervix No. of containers..01 ThinPrep Vial Age Algo ACOG Amarilys... FLAG LEGEND: L-Low Normal,H-High Normal,LL-Alert Low,HH-Alert High <-Panic Low,>-Panic High,A-Abnormal,AA-Critical Abnormal Performed at: 01 =G [address] [place] [address] Nikia Madden MD, HPV APTIMA Negative Negative [facility] Comment on above: This nucleic acid am plification test detects fourteen high- risk HPV types (16,18,31,33,35,39,45,51,52,56,58,59,66,68) without differentiation. Performed at: = - [address] [id number] Breaker Mechanic: Nikia Madden MD, Phone: [phone] Performed at: - [address] [id number] Breaker Mechanic: Nikia Madden MD, Phone: [phone] IGP, APTIMA HPV, RFX 16/18,45 Note . [facility] Comment on above: TESTS RESULT FLAG UN ITS REF RANGE LAB DIAGNOSIS: 02 NEGATIVE FOR INTRAEPITHELIAL LESION OR MALIGNANCY. REACTIVE CELLULAR CHANGES AND/OR REPAIR ARE PRESENT. CELLULAR CHANGES ASSOCIATED WITH ATROPHY ARE PRESENT. Specimen adequacy: 02 Satisfactory for evaluation. Endocervical component may not be distinguished in cases of atrophy. Performed by: 02 Rina Duron, Registered Nurse Cardiovascular Icu (ASCP) Electronically si... 02 Nikia Madden MD, Pathologist . 02 Note: Note 02 The Pap smear is a screening test designed to aid in the detection of premalignant and malignant conditions of the uterine cervix. It is not a diagnostic procedure and should not be used as the sole means of detecting cervical cancer. Both false-positive and false-negative reports do occur. Test Methodology: Note 02 This liquid based ThinPrep(R) pap test was screened with the use of an image guided system. HPV Genotype Reflex Note 02 Criteria not met, HPV Genotype not performed. FLAG LEGEND: L-Low Normal,H-High Normal,LL-Alert Low,HH-Alert High <-Panic Low,>-Panic High,A-Abnormal,AA-Critical Abnormal Performed at: [address] [facility] [address] Nikia Maddne MD, BRUSH-SPATULA CERVIX ENDOCERVIX [facility] Operative Reporton Operative Report Patient: AMANDA FRAGOSO Age: 57 years Sex: Female : 1965 Associated Diagnoses: None Author: Albaro Pink Jr, DO Postoperative Information Date/ Time: 08/17/2022 07:58:00 Preoperative Diagnosis: Acute postoperative pain.. Postoperative Diagnosis: Acute postoperative pain, per surgeon request. Procedure: Fascia iliaca nerve block. Anesthesia Method: Local, Monitored anesthesia care. Performed by: Albaro Pink Jr, DO. Medications: Midazolam 2mg. Complications: None. Notes: The [...] surgeon request for post-op pian management.. [facility] Comment on above: Result Comment: Elec tronically Signed By: Albaro Pink Jr, DO\.br\Date and Time Signed: 08/21/22 09:09 EDT Progress Note-Physicianon Progress Note-Physician Patient: AMANDA FRAGOSO Age: 57 years Sex: Female : 1965 [...] meets criteria ( To home ). [facility] Comment on above: Result Comment: Elec tronically Signed By: Albaro Pink Jr, DO\.br\Date and Time Signed: 08/21/22 09:10 EDT Progress Note-Physician Patient: AMANDA FRAGOSO Age: 57 years Sex: Female : 1965 [...] constipation, # 40 cap(s), Refills(s) 0, Pharmacy: [facility], 158, cm, 07/29/22 12:08:00 EST, Height/Length Dosing, 58.6, kg, 07/29/22 12:08:00 EST, Weight Dosing aspirin 81 mg Oral EC Tab: 81 mg = 1 tab(s), Oral, BID, # 60 tab(s), Refills(s) 0, Pharmacy: [facility], 158, cm, 07/29/22 12:08:00 EST, Height/Length Dosing, 58.6, kg, 07/29/22 12:08:00 EST, Weight Dosing cefadroxil 500 mg Cap: 500 mg = 1 cap(s), Oral, q12hr, X 2 day(s), # 4 cap(s), Refills(s) 0, Pharmacy: [facility], 158, cm, 07/29/22 12:08:00 EST, Height/Length Dosing, 58.6, kg, 07/29/22 12:08:00 EST, Weight Dosing oxyCODONE 5 mg Tab: 5 mg = 1 tab(s), Oral, As Directed, 1-2 po q4-6 hrs prn pain Dx: M16.11, Z96.641 Duration: 7days, # 40 tab(s), Refills(s) 0, Pharmacy: [facility], 158, cm, 07/29/22 12:08:00 EST, Height/Length Dosing, 58.6, kg, 07/29/22 12:08:00 ES... Documented Medications Documented carvedilol 3.125 mg Tab: 3.125 mg = 1 tab(s), Oral, BID, Arrhythmia meloxicam 15 mg Tab: 15 mg = 1 tab(s), Oral, Daily, Pain multivitamin: 1 cap, Oral, Daily, Prophylaxis Problem list: All Problems Arrhythmia / SNOMED CT 8761083707 / Confirmed Histories Past Medical History: No active or resolved past medical history items have been selected or recorded. Family History: No family history items have been selected or recorded. Procedure history: delivery ([id number]). Operation on placenta to removal ([id number]). Social History Social & Psychosocial Habits Alcohol 07/29/2022 Risk Assessment: Low Risk 07/29/2022 Use: Current Type: Wine Frequency: 1-2 times per month Substance Ab (more content not included)... [facility] Comment on above: Result Comment: Elec tronically Signed By: Albaro Pink Jr, DO\.br\Date and Time Signed: 08/21/22 09:09 EDT IntraOperative Documentson 0 08-20-2022 IntraOperative Documents [id number]#1.00CD:127 [facility] Coding Summary.on 08-19-2022 Coding Summary. CD:[id number] Ww+PGhlYWQ+PQ0UJACjG 30ebWFwnM5rS1KHRKpOL ywgQVBQTElOSyIgbmFtZ B4wsCHcIAJu IC8+GN1dMSWdGfsvwISh j6C0jKK5M35khg8wSJsy iXH7TYMcRiTqxguwd8zc nSx3TZaxGtmyDmMb WECtgY44DOS0eQ70Ax97 lHQxmAMpj1wcaEx2YeLk GKCvLTC0aRzuIRddi3Uj QAIbA41zdPAlm4D8 IGNvbGxhcHNlOyBlbXB0 fD7jORgefmgds4yqksrr Kxs6hc94rUOii9F2dWE4 P9FcqaF0PZPkgMZk DcmkjQHLgO1ynsrof1ht xqfvZpAgZMBbVXl7IGa9 HFQwiOvzDtHdUL01TIV2 VUInnmRhM4XfBKKw fNgvQsF3z4W2Qr7UM7YL CafqC4GWJROZYXnawBH+ SH78bw93P0BwLzenBhl7 BOHxPVD3xOC0dH9r CQPwKXrru8W4eQA3E5Tm pcXsau6fl6nxSCEpDTxt B79tdQDfq8Y9OSCrwAN7 IWWrmQilNrTpjR08 Oyc+TNYwaPsfd6YsSsrk b1psm3nwzPa9ZclhYBFm alBwvApmUVB6c4ReCs4y RANdjUN6rQA4bP1g YjPtCvV6LZdpX936YzXy yAPuQkuzK44xU8BriNT+ PBThXrp4MKGwmCeqYP7q A8QaKWZcdpukcEMi tUapBI9mMXKmirunSWSn xY0fAVPdG0e5OiJmFbP4 YBhuN4GoZBHxeyemMd06 eG8lTsIiXhX8FHir G4KpwdS3MZPlbDEjBIhq VZJ1V43ms6J8ZNLxDNDl BMM1jFD4qT7dmMdkrzwr bGVmdDsgdmVydGlj GCpqPYbrP020CPFkqYgc PkNvZGluZyBEYXRlOiAg MDMvMzAvMjAyMzwvdGQ+ CMLtBIB1yYpuUXAp hEOlRRopJg3sbWsieEwe JN5sXUNlzmkqIXMpgY2k XYMweRYtaBqiNC8vKHHw mjjdn663SrSgIKZ2 CUJeeKChJ4GhtJ0zIhRm AJPqSKNhP9UloPObMJgn S922LHizFfF7NDSjseEd V1LzRHHrjHipIyF0 z3J7We8Ao0MlsqofF8Dg fTMiOqYtOolhNCy9J6Jg PjwvdHI+RF54UINsVN27 OXu1RGD6bSdsOCjz IFDdX0JftW0wIvFiKGDy ZGRkOyc+PHRhYmxlIHdp ZHRoPScxMDAlJyBzdHls ST8xWh6nQUMvCXLo bGsiyCAqGmDdg3yeUBYq PHkrXH6vxLwlJ6RuiEG9 RBPvl2a1Jd06M46xI9Lq dXA+IGDsmWZ6zUH5 dT4aSoDaWrY3LTqoQ343 EfYkoXVvVldfh1ryk1wz yEq4EqO2CMHagiSyuAkg BHM2i1BiIg40L45t IHdpZHRoPSIxNSUiIHZh cQelgv3dvX1bNu9+PGNv mLO0wYT0yR0fPyBrMiY9 ROdwE597GdMrdBNp Iqblh4ezo3puhGs0LqMf NYSwoqTstRvwPIG3m9Ow Nb94Z2BrtGjiq6JvDqs4 uf20nIEdk4T5iUS9 Y9UrYWTryfruoCBafXfm MD9tVUNebaivWIZddS4k DAFzF7c8KnZlXzO0YPjw U6VyzcJ2QOGyxGXm UPTagAMKvV8vimmbz5la qlooYuDyQAQdFVc5QZp7 RSPmoBrgLjGqRRP7DcE6 VDB4vGOlkG5ahAgw tmktvQ4iXaq+TNS2eAJp rQTBDF6rHexazPA+PHRk QXM9iOirJTpwPLQfcS6d ZNGaW9x8WiFlJjH8 EHgjF7TlgkG1QEVpqOQk LLOgjOTNuV7gativl6iz tdkpIxNiHPKvLKg9UQt3 LWFsaWduOiBsZWZ0 LpH3VRG6uMYopI4sjAoa lxhpcL7wFwm+QmlydGgg TEG0OJf3I3OsTac1PGKc zHkwNZ8xvPTuOJmn Ki2blMsfzFjrQV4vJNPj rvbei155McAde0dbHINg yWTsIErmXZC3B58yd0R5 VSMjQFIlPYM6zWN4 zT9spUdksxasgVEqvBuu nrHckGhdRDulAQgbO409 YZXmkYzzVcSjVKi5M5Bo Sjm7BZCjvZqiNA5s fOWuUFnfTr3jaNgvxChj XI3yFRRfihnre536DrWm h5iqJAQmhULzJHupDCS1 Q34vj4W3LHOqSBMn JJY4vSH4nP1csNqrlyug bGVmdDsgdmVydGljYWwt BQukF411LORxxCfeVqQv vMk4G2OgWgl7VYZt eQrtOU6yxPQaWVmwVq6l fIncwIdaTY2hPZIbgrge c873XbIfa2laBLLsbJUb ISjtFRG8Q48mn6N1 VMXsBIUnTLP3tBA3tL9z bGlnbjogbGVmdDsgdmVy tXkrSGdvPBbcU291UCDb cDsnPlBhdGllbnQg LCxhHKt8M9NnPvmnqCN+ VV14VUOkXN53oCKvxNWg c4kotVs3VaRrEOPhHUJ4 pStjHSlym2IpPVXz R41omNNve4L9KXRraCfr cAFkXfVeqBZ9tG3nMNyl ctfqo9xavyuhGlnoa3bu mz80gS00F80xNMvd ZHRoPSIzMCUiIHZhbGln yw9xbW7qWw6+PGNvbCB3 qQA7aR2kCWZcZeV5PFfw S915LoSgiJAaNzgn c2quk1dtkVg7SyI4IDNk xbGopEmnBBU8b6QzHd76 G96dPIbdYPUtEQDgWEYu YTEeiJvcou0alF8j Ii8+SXEtvBH5bKU9hW9s ItEbCxV7QFyxL604CiIl dEHfWjxcN38yP6TgfUM+ WJYtSob7XSLsuWln AZ7enDSeMTnoXh5dJOJ2 PgZkUfDbACieA6JyDUOn yqyurxjypPX8CMWyTEAa vY35Qt0ppIgnPCZp lPZMoZ5filuzk7ashzzf BiDySEJgJMk3FIo4JMLw lErfYpEzDXL0GuF6CHT5 qVQqiT8gdMhynpjp zV7uT5LwINAojordRn55 rW2eCsYyCwA3IZqwExn+ W5JTT6PTPQWFTbRFFVs3 F2GmUxr2RPSduMny OE3tjRDoGCswVp7xwZpj kMqqNS5qWFUiayulSVRz mD4ePZJmpFWmhYbnOE6e MRNppyqon281KnKa LJI8XCIetELhT1JyoX1q JoNwJWHxSLZxC4WuaHAk FQcxS857EKajBtI1QPYd ozQzM8MkPTWzwHqo WeO6m2U9Cr4kCA6wWP8r URI2CB44VK54rCBay7R8 vYA0H7FaHOPjbifbbjwo cQH3BWFjQOAtqU16 qUKwHMcnXy0pr2U1g619 HPTkUTCsyT15Kk5ztQfh IYMlyGMEjR9sftpyl9av cjogIzAwMDAwMDt0 ASy5FQRvcNuyCxUlCNL0 KpQ7XJQ4vWMxjP3qpVoy rpdgjA6xGzc+NTggWWVh csC1F6QxCwu9KGDw vYwlHQ9rhOTuPFobPm9a fFkjbFdbCA0sMBXpyzuy OYCwlL5aBUBumQVxpUzf ML6wBMLjltxsx195 RnZuZPD0RMBycYAaH7Yt fW3mRrLgGWEvCNAmF2Kg wHZlEAugE337EEdxWoQ8 DCXivdQnB2IhSWCm nHvbGzQ1r2Q6Hh2PYX9h sPY0W7RsWkl7THMfaYym WS8rvROzUMwxGs1zaIue eMciWP6kRFAzzrip GZTtdY0lSNDdhVSnvPlh OG7wFNCadxbpi972OfPt DCF5GQNwxPYbR3JvuJ9e DqSxXLYpFIFwR4Hd zUFgXSleC423BHusZoZ0 YDBhzzUaJ3XnUENhuTxt UgI1m2D7Ys1JzZP3bAF4 a6P1T8TntONfQXD7 HKT7cwtubxj1X7XoPrhl dHI+EG34JYXdEK68pQSx mYMoh9ficHk5MyOvRVQx QFM0aOunTPuwh3Ht TNAzM60nxTRih0V4PEKa jSdrgVQbLoWiiDU3fP3y NGqgklprn8zbpnbsVaao a7ahcw43tA17U84v IHdpZHRoPSIzMCUiIHZh lLjcxm1goR6oWy1+PGNv xMX4iTT6yD6nOpNvWbK4 UWbyA420GcLiaDYt Thmat4svm7gaySb7WqMe WKXmimNfxEcdNRG1p4Aa Bk41K16iIXvxNGHsLZWl QMNpMLIniKzbaz0v lM4zNa1+CY0la3ijdk03 wF69eUQ+OMKxDNG4iBwm YIupMFAqaY4kCGmdOwM1 TGTjPuDlcF88lTAs JXmjKc0iuQwxwSaeVG3l BXVkxqeqd432NzBsk5nh IXCelTIdYFbgTGE8A77b f4M3CNYwHMFtNTA4 dXT6nH7bhQxouepybJJz dDsgdmVydGljYWwtYWxp D917KUVtyXcbVeIbkPMc F4uohbIOEG9kIcre dGQ+LWSbTXN8wSudRJtm EZFlnD9gQVVqY8d2KaQg QmW8XTyiB9SndsH1NYSy tEPhEOUgmMRYlW0z pnmzh4gktsppMcEoZUKj SKb3PBd9GAXpoEexNmGe AFV7ZhO7VHF8kPMbcW1i zGrgtmnqzJ6fHux+ RklOOjwvdGQ+PHRkIHN0 hWuqUMoqRLByxU9eMQJt M4p6SkVxHwK5YAiqU8Ti mjG0SVLchDHiNIKx gRRQdL7smkutp5ekubsi NaCkZSJdCWk3KSz1HFCf sCvgNdMrZGN0AmR0DNP5 lOBplI3mwGqgxkvo aX1aGws+TVJOOjwvdGQ+ VZLsFPI3hNovXKivXUSl gA8kFIFaA4a1PhSvVyP8 QGohM5XigtH5DTKd uFAmWVRwiIZIyC4znfbi i5gyflfyVeFwHVSnKCu0 WGl3XTUqeYdjTgEoTSW9 ZcZ5RTN8pPPpnU8f xXqthyxmhP1xTap+UGF5 TWG1OL12IO83E6FtJsdu dGFibGU+PHRhYmxlIHdp ZHRoPScxMDAlJyBz lOovDQ6z (more content not included)... [facility] Main OR Intraoperative Recor don 08-19-2022 Main OR Intraoperative Record IntraOp Document Type FT Summary Primary Physician: Lore Hebert DO Finalized Date/Time: 08/19/22 10:54:53 Pt. Name: AMANDA FRAGOSO/Sex: 1965 Female Med Rec #: [id number] Physician: Lore Hebert DO Financial #: [id number] Pt. Type: A Room/Bed: Admit/Disch: 08/17/22 05:40:33 - 08/17/22 15:55:00 Institution: Case Times FT Entry 1 Patient Times In Room 08/17/22 08:42:00 Out Room 08/17/22 11:20:00 Procedure Times Start 08/17/22 09:21:00 Stop 08/17/22 11:15:00 Anesthesia Times Start 08/17/22 08:42:00 Stop 08/17/22 11:20:00 Block Timeout w08/17/22 07:58:00 Anesthesia Last Modified By: Dash Willams RN 08/17/22 11:41:54 General Comments: Unilateral right hip nerve block done by Dr. Pink at [phone] with JG Pierre assisting, HR 66bpm, SpO2 [...] Case Attendee Lis AGUAYO, Darell Hebert DO, Lore Roy RN, Beth Velasquez Role Performed BOW TACKER Surgeon - Primary Staff - Other Time [...] Entry 5 Entry 6 Case Attendee Екатерина GREGORIO, Dash Arrington RN, Adam Hedrick Role Performed Boatbuilder Supervisor - Primary Boatbuilder Supervisor - Primary Scrub - Primary Time In [...] 9 Case Attendee Gregg RN, Byron Marrero RESERVATIONS MANAGER, Stacia Lane RN, Sun Oconnell Role Performed Staff - Other RESERVATIONS MANAGER/SA Staff - Other Time In 08/17/22 08:42:00 [...] Attendee Michelle Ro Chelsea R Role Performed C 40A Crew Chief C 40A Crew Chief Time In 08/17/22 08:50:00 08/17/22 10:29:00 Time Out 08/17/22 09:20:00 08/17/22 10:49:00 Procedure HIP TOTAL ANTERIOR HIP TOTAL ANTERIOR ROBOT ROBOT ARTHROPLASTY(Right) ARTHROPLASTY(Right) Comments Last Modified By: Екатерина RN, Dash Willams RN, Dash Oconnell 08/17/22 11:41:57 08/17/22 11:41:57 General Comments: Kelechi Hnad and Eve rowell, also in attendance. Mehreen, sterile supply technician Protocols FT Pre-Care Text: Implements protective measures [...] X-ray Applicable) PreOp Antibiotic Yes Time Out Lis AGUAYO, Luke Albert DO, Kirill Leos RN, Екатерина Campos RN, Murphy Tan RN, Ellen Aguila Kendall R, Krupp RN, Janes Michele CST, Stacia Myers Time Out Complete 08/17/22 08:20:00 Outcomes Met? Yes Last Modified By: Екатерина GREGORIO, Dash Oconnell 08/17/22 09:52:02 Post-Care Text: The patient is free from signs and symptoms of injury caused by extraneous objects Allergy Information FT Pre-Care Text: Verifies allergies Entry 1 Allergies Reviewed? Yes Allergies Reviewed Self/Patient With Outcomes Met? Yes (more content not included)... Normal [facility] Blood Bank Slipon 08-18-2022 Blood Bank Slip [id number] #1.00CD:127 [facility] Consent for Anesthesiaon Consent for Anesthesia [id number] 2#1.00CD:127 [facility] Discharge Instructionson Discharge Instructions [id number] 8#1.00CD:127 [facility] IntraOperative Documentson 0 08-18-2022 IntraOperative Documents [id number] 4#1.00CD:127 [facility] IntraOperative Documents [id number] 0#1.00CD:127 Normal [facility] Operative Reporton Operative Report SURGERY DATE: 08/17/2022 HARNESS CUTTER: Stacia Marrero CST PREOPERATIVE DIAGNOSIS: Right hip osteoarthritis POSTOPERATIVE DIAGNOSIS: Right hip osteoarthritis OPERATION: Right hip robotic-assist total hip arthroplasty ANESTHESIA: Spinal/fascia iliaca block ANESTHESIOLOGIST: Darell Hays CRNA ESTIMATED BLOOD LOSS: 250 mL INTRAVENOUS FLUIDS/URINARY OUTPUT: Please see operative record SPECIMEN: Bone and soft tissue IMPLANT: [place] Total Hip with a size 50 Trident [...] arthrosis. Total hip arthroplasty is done with sabianism of limb stability, alignment and length. The patient did tolerate the procedure well under spinal anesthetic. The [employer] robotic platform was helpful. The fascia iliaca [...] patient is then appropriately positioned on the [place] table. The boots are placed in the [...] femoral janis (more content not included)... Normal [facility] Comment on above: Result Comment: Elec tronically Signed By: Lore Hebert DO\Didierbr\Date and Time Signed: 08/18/22 07:04 EDT Preoperative Documentson Preoperative Documents [id number] 2#1.00CD:127 Normal [facility] XR Hip 1 View Right + [...] mGy = na DAP = na Normal [facility] ABO/Rhon 08-17-2022 ABO/Rh Negative Invalid Interpretation Code [facility] Comment on above: Performed By: #### 2 [id number], [id number], [id number], [id number] ####[facility] [address] [place] [address] ABO/Rh History Checkon 08-17 ABO/Rh History Check Verified Hx Blood Type Normal [facility] Comment on above: Performed By: #### 2 [id number], [id number], [id number], [id number] ####[facility] [address] [place] [address] ABSCon 08-17-2022 ABSC Gel Interp Negative Normal [facility] Comment on above: Performed By: #### 2 [id number], [id number], [id number], [id number] ####[facility] [address] [place] [address] BLOOD BANKOrdered By: Denver Wren on 08-17-2022 ABO/Rh Interp Negative Invalid Interpretation Code [facility] BB Subsection ABSC Gel Interp Negative (08/17/22 6:30 AM) Normal [facility] BB Subsection Blood Bank ID#on 08-17-2022 BBID# [id number] Invalid Interpretation Code [facility] Comment on above: Performed By: #### 2 [id number], [id number], [id number], [id number] ####[facility] [address] [place] [address] Consent for Treatmenton 07-22 Consent for Treatment [id number] #1.00CD:127 Normal [facility] H&P Updateon 08-17-2022 H&P Update [id number] #1.00CD:127 Normal [facility] H&P Update [id number] #1.00CD:127 Normal [facility] Comment on above: Other Comment: NEED A [facility] Inpatient Patient Summaryon 08-17-2022 Inpatient Patient Summary [place] [id number] [facility] Clinical Discharge Instructions PERSON INFORMATION Name: AMANDA FRAGOSO PHYSICIANS Admitting Physician: Lore Hebert DO Attending Physician: Lore Hebert DO PCP: STEVEN CHAVARRIA, EDUARDO Discharge Diagnosis: Comment: PATIENT EDUCATION INFORMATION Instructions: How to Use an Incentive Spirometer; Post Op Patient Instructions - FT (CUSTOM); [place] - Hip Replacement Arthroplasty, Revised 07/14/11. (Custom) Medication Leaflets: Follow up: With: Address: When: Lore [address] [place] [address] Business (1) 09/17/2022 8:30 AM Comments: Call for any problems. Keep scheduled appointment MEDICATION LIST New Medications [facility]72, [address] [place] [id number], [phone] aspirin (aspirin 81 mg Oral EC Tab) [...] 1 cap By Mouth every day. Comment: Normal [facility] Main OR PACU I Recordon 07-22 Main OR PACU I Record PACU Phase I Document Type FT Summary Primary Physician: Lore Hebert DO Finalized Date/Time: 08/17/22 13:06:58 Pt. Name: AMANDA FRAGOSO/Sex: 1965 Female Med Rec #: [id number] Physician: Lore Hebert DO Financial #: [id number] Pt. Type: A Room/Bed: Admit/Disch: 08/17/22 05:40:33 - Institution: Case Times [...] Signed By: Leni Clark RN 08/17/22 13:06 Normal [facility] Main OR Preoperative Recordo n 08-17-2022 Main OR Preoperative Record PreOp Document Type FT Summary Primary Physician: Lore Hebert DO Finalized Date/Time: 08/17/22 10:03:41 Pt. Name: AMANDA FRAGOSO/Sex: 1965 Female Med Rec #: [id number] Physician: Lore Hebert DO Financial #: [id number] Pt. Type: A Room/Bed: Admit/Disch: 08/17/22 05:40:33 - Institution: Case Times [...] By: Dash Willams RN 08/17/22 10:03 Normal [facility] Monitor Recordon 08-17-2022 Monitor Record [id number] 0#1.00CD:127 Normal [facility] Monitor Record [id number]#1.00CD:127 [facility] Outpatient Surgery Discharge Instructionon 08-17-2022 Outpatient Surgery Discharge Instruction [place] [id number] Patient Discharge Instructions PERSON INFORMATION Name: AMANDA FRAGOSO Date of : 1965 Current Date: 08/17/2022 09:28:15 PHYSICIANS Admitting Physician: Lore Hebert DO Discharge Diagnosis: AMANDA FRAGOSO has been given the following list of follow-up instructions, prescriptions, and patient education materials: IF UNABLE TO CONTACT YOUR PHYSICIAN AND YOU FEEL IT IS AN EMERGENCY, GO TO THE NEAREST EMERGENCY ROOM OR CALL 911 VIOLETTE Almaguer AMANDA, have received the attached patient education materials/instructio ns and have verbalized understanding: May we do a follow up call? Yes No I was present when discharge instructions were given Patient Signature Date Clinican/Nurse Signature Date Follow up: With: Address: When: Lore Hebert [address] [place] [address] [id number] [facility] (1) 09/17/2022 8:30 AM Comments: Call for any problems. Keep scheduled appointment Pharmacy Information: You may receive a survey from [employer] asking you to rate your care experience. Your feedback is important and will help us understand what we do well and how we can improve the quality of care we provide to you, your loved ones and our community. It?s an honor to serve you. Thank you for choosing [facility] HERE ARE THE MEDICATION CHANGES THAT OCCURRED DURING YOUR HOSPITAL STAY New Medications [facility]72, [address] [place] [id number], [phone] aspirin (aspirin 81 mg Oral EC Tab) [...] possible. ? If the spirometer includes a strength and conditioning coach indicator, use this to guide you [...] each repet (more content not included)... Normal [facility] Outside Recordson 08-17-2022 Outside Records [id number] #1.00CD:127 Normal [facility] Patient Education - Texton 0 08-17-2022 [...] possible. ? If the spirometer includes a strength and conditioning coach indicator, use this to guide you [...] 09/19/2007 Document Revised: 06/01/2018 Document Reviewed: 03/22/2018 [employer] Patient Education ? 2019 [employer] [place], [place] [facility] DISCHARGE INSTRUCTIONS HIP REPLACEMENT [...] is n (more content not included)... Normal [facility] Progress Note-Physicianon Progress Note-Physician Patient: AMANDA FRAGOSO Age: 57 years Sex: Female : 1965 Associated Diagnoses: None Author: Lore Hebert DO Postoperative Information Procedure: R RA DIMITRI Preoperative Diagnosis: R hip OA. Postoperative Diagnosis: same. Performed by: luke. [employer] Shift Manager: janes. Specimens Removed: bone, soft tissue. Prosthesis: [place]. . Estimated Blood Loss: 250 ml. Complications: None. Anesthesia type: Spinal, fascia iliaca block. Normal [facility] Comment on above: Result Comment: Elec tronically Signed By: Lore Hebert DO\.br\Date and Time Signed: 03/28/23 11:09 EDT Consent for Procedure/Surger yon 08-12-2022 Consent for Procedure/Surgery [id number] #1.00CD:127 Normal [facility] Coding Summary.on 08-04-2022 Coding Summary. CD:[id number] Gh0bWw+PGhlYWQ+PE1FV GVuT90knQXfjB9kY2PFX ElOSywgQVBQTElOSyIgb iMqPX0gaLEnTHWx IC8+BM8aMQHjBdcesHIn h4P9oJI0V90heq0hQEie rEC1ZZEeTcIgxkuyr2hg gBq1WOeiExacWuTx RJXdnK10EPS4xC21Ph40 vPFpiESnl6aguAn9WmGv SUAdWYP5cUovPUboq7Th CEGiW98lnDBhw8V4 IGNvbGxhcHNlOyBlbXB0 pR9rYJymtvtsl0lbrwdo Rif0yf52tDXlt2S7rAA6 G8GqwmW4AUQxiIPr YneseJIXrC6reiopq1ij xyknCnRiGXVmOQh4PGk2 GGXedEdxYkXqNY42XNP2 FIUvljXqC0OtBKDx xWsbUiS7e6M1Ph1WY9KD CnnyI9CNGUGXEMougEE+ GI89em64R7KeUpylEla3 DJFnCVP0wPE8iT2r VCDeSWnjv7T7gLC8L1Uc oxEhbx0uu7dpRAUfLAkj E29nqHDed5I6YLXwsSN7 EWCnqYlmZxIggT40 Oyc+IWVueOmoq0FlStqg a8xzz6luiLb4GefkIUYj zzUrgLkoSHW0i5BtLg1d LDTmiIA3pAV3yL6w AkHvDjM4KKtzC369TzYp tWDtVgbuJ18zQ8VshKH+ TOYfDbe8FDIqtYhiWE6r U4YgXGYvgcfkdUWh vPwkZR7iFXJuvkxiKPFr kU8xYARaR3k6CjOiUxG1 ULycF1HwXLZpfsjyMk39 tX8kFoKcJfN3SGug N3XewtE1GKGabSQfZTrm LJC8A53zg7T6THJyWMEr ADC4fOJ9oV3bxSunlpbq bGVmdDsgdmVydGlj VHlpFQyvL675CNJyhVsg PkNvZGluZyBEYXRlOiAg MDMvMTUvMjAyMzwvdGQ+ CEPrKBR5aHaaJLVc pOIlYKdnEc6cmIsivAtn SU1yOJYxzfasBIFqnC2b EMPzjLZyhFkcOR2sMUWt wuwit709ErHsQBV7 TEJleOKuX4UyuW8oBfFm JRPaDYYwI4LstAAiJPiv D426GDgdDfB8KMZgumDy E1SgFFNyqKxgQpP5 f7M1Aj9Qo2EtwhiyX8Ij eBGlRgQpLoghZLr5Z5Ri PjwvdHI+TO59PCWsCX86 KOh1JQX3aLhuNDww HKSyM2RajY8vTzMbXTNx ZGRkOyc+PHRhYmxlIHdp ZHRoPScxMDAlJyBzdHls SP0bGf1zKYLuRCIk sDtenLZtFsLdh7tjRUMp MYpcMO1gwJcbQ2AlxSP3 AVGtl8i3Kb33Z66kW9Rd dXA+CQSrjXV1aVZ5 zC3kYhMlEeI5OVnnB604 QcEqbXCsCbgmr0iyn0bw xOy3PtM9AGFqesWrnZtl FAW7f5BxEo32Q95p IHdpZHRoPSIxNSUiIHZh eHlvbf2tfK6fFp1+PGNv iLN9rTW7rB4lXfFsCrL9 KNdhO240PoGvlVPu Sobot0yud4nszJc9ScTv NENpsrAgtZmmDTD8o5Ny Lz11U5DzyBsly9BaLvq5 pz19pTDgc7N8aMO9 U0UhEROsyuwrsSPxuZso WC7gZJAnutnvNLLkaX1c AZEjK7z7EdEwHuK5AIjm W2YwuhN6LLRbeVUp AMCikRDBwK2rbadrz5ze txzjGjEgWSTuDNa9KOn4 HTUkcBmzDuGsOWS3ZqP5 WBW6sYKclE3ycCum qgpuqB2dZai+MVW3oHJt tMTUTY7cTextuSW+PHRk NPL3uFttXWswIHVeaM0g ZVXtS2s3CuIiAmZ7 SMflJ6EewkR6GBVdhOFd ONCasCHJyK9jfqzdq5rs swrsCfFqXEZjYAo1XLo1 LWFsaWduOiBsZWZ0 KzF5WUD4vMXujG9tvPel pkwajI9mRyz+QmlydGgg SVC0BYz0S2EtOno3KGXf iLypNT2rvEQoXLwa Vn2bkUcegNluJT8lHLRn zhdwg722XaGip3bgVJNq jNMgJWdeDLY2D59aj2R2 GUEtZZIzNUI8hBF1 kK6igRqvyjxcpZQgdNej quTxwAriPLtcXEizK207 LOJzyJsbWqQiQCf0R8At Dpt3BENaoMxzIN3b eXCcQQjwPb1agPrmeHcy HA0hADMrrwjta438CjFw m5xrHEVhhVRxRJkyOEL9 T92la2Y9KMXhIDAk SWI1xNJ7fJ2toKhinwsg bGVmdDsgdmVydGljYWwt ABpcG673JLGquFcxPvBx cZi3F0HpBrz2PLEj uXdkIK2whUAeDDgdXc8h oLzwwAdsGO5rUBRdtdff i787OrZqb9kcBBFugPCv VHgdTZG3J26wy1C4 ODDmPTZiOSQ3lRM1iI2x bGlnbjogbGVmdDsgdmVy vMdjCAnxETzfX170MILd cDsnPlBhdGllbnQg GKagUGw0W0KeGwroaHV+ OK85IXEeFU25uHYjwKFe f4jqtYd1TgIiHPDhLVT4 rRlwBYsny7RsTPRo T95mvOWvs9L5WXYesEgv zQMaSrXzfYT6aD3cCGln rxsjg7picvsoQtpht3xh bk66rZ84N77nXTmz ZHRoPSIzMCUiIHZhbGln ul2eqF7oKi4+PGNvbCB3 tYQ0aH0vUNSqVtD3DHiz N568TuYmzFMqXrpp e6xzx6qdfBd2PoX7QPQy jpLlwHqaGSO5o6PaDz81 W89zCNnfIZCgSYDlFCKd YJXywRtcin3uhS5l Ii8+QIIrhYT5nSX1eU9y AlUxMcA6JOhhW197WlQq kSRfPltfA31mO9JehZN+ HEPhAvd9OQXivUqe PM9mwKUnWBflWl0nURB4 PvPsEwItJYgzP6ZyTNYy rfazipbpjXX8TXUdSWEn jZ44Hc8jjAxnJMLd oXZUmI1igrtgy5itnowo MrQrWZJmEOc2YIa6IBBr vNlqDxYaKYC5TrU4MXJ7 pQVawL9zwIihpzbq lN6sQ9DlZGGrqgkzXd92 wL8eHjMgVyB8RIcsHxu+ I7TKS7ORQBHANeKUSRg0 D2IhPhg0IJFrfJop SL5yeKSdUYbbKe3teEha eFxdWA4vGCFmlffbPIBn uY6uZXXgfYEgwCozJG5j MEYxmlrst578GoWc QNN8NUBlsRHfP2PlmN7d WzYlEXLqJZRmA4GesUJd NOgaG936QLaqMlA4LAEv bsChB4HuVVRwtOxe QnR2w2G8Bx7bAC7jYQ2q UTJ5IO84OA15bTBwb2C8 tOF7K5CfDIBxassxvyco bEQ8BXOgHDGnfN16 pHWkHPjvTo6hl9E2g055 HHXjIOMqzS46Rm6hbJbt WWKpoIAHsY6vifwzx7cv cjogIzAwMDAwMDt0 GLj9AZTcyVxzBrNcXAN9 ZfD9YZT3qVZstK7fqZmz wtephU2dVmp+NTggWWVh zxL9H6YvSef2EYPf pVslPZ2uwIXkEBvlUo1i kNnnjTgxIN0xKTJqsrtb SMUlrV5gTXLauBYkyQvj HB3rWIGpyqtif944 ZmJxUPY0LJOwbGToX7Og aI7yFdHkEBEhVMAyR0Ku tRCpWBtqF931NCtcKhY6 EXKvmbGyS3DiJGTz eKhmBpE6c5Z7Fq0INC9x eWU5F7OuQgk5XADurMnk KF5orXQsHDoyVm4osPkr cBlgMX0bOZVhgzuf ERTexB8wEQDnxWJqzPzs AJ3wKCBpdalvx222MjRe KEM1NFVftEZiM8TbmS7y CwBgZIVnYWHyJ8Lc bXHrJJwlC117HTvpFgZ1 ABEzahUkF7UiAGQnkNsz WqF3s6T8Do2PdBCrVAXt BG24CO66SJ11B6Er PjwvdGFibGU+PHRhYmxl IHdpZHRoPScxMDAlJyBz lWkmVO9yDw3bDNKoIDMg qUhuxQVsUcYqg2kf DUVdOEodQI7hqUgiJ3Tr sMP4JNKxg8b7Kl95P41t A6ObxWG+JCIzoLQ4wKE5 jO5sNsXpBmO8SKqe Q580XtJehEPhFjsyj3lf n2jarHb8PlSxXGIetxXy rLsiGNQ7j2QrXc31P38x IHdpZHRoPSIyMCUi ZXNkpFlskq5huE2kIg5+ KEUnuKI1xTV9sQ5aNiOm WgX4WFypY489PnColSKo ZbsjC76tU8ZuaAP+ UDErHvu6IDWjwNevJB0g aKDbBXncBm4lMHY6BaGt OhQfEJnaF0RmBLPbbzty wlfirAK0GKLtKIPd wH46Gs4qaOjrQv9nASPq JCF4OBKoxQBmW0PuyR8x CmVnGMXfUKRtI2ZrlXNs EKfdR924PNxyQwL1 OEVfikJnF4ZoBEBiwAkz TuL3s4F6Em0BlOjptPBr TN5kNiCdMTq5U9WnWkm3 UVReiWbcCF7fdISn ULrcRs4ejGphiYjhVY8c GWCegakdn772FbOvz1kw IHVcaXBqKOleASE6O25m b4U3VXHfHMYpLSP8 lAU4lX0tsSdoifvtdLTw dDsgdmVydGljYWwtYWxp U528ELOgfSyxTjSTHlj4 J3IrTwl7GSDjhXws AA4vkFFtPDtbTw5ndWlu iKzxIO8dHIOtqdcfp642 WwFnj7jkJCRihDRaYNpo ORG6C77uc3A4LTBq GVTpCEY0cKB1uO6fxZqf bjogbGVmdDsgdmVydGlj BUpmYEklQ630YNNquCja De5EBtt3D1IwPat8 YHCckMnlZN3fwUBwYWkj Th5ixPruaMmnRH0rJGCe zbzli112RiGrw8cjWOAt zAUkCVrcKEH7C00k w1K4MXXiNONyPRK8iMS6 kR6mqEjjpoqbbOVtbQus fyFhnTluJAqnGOhpK673 IHRvcDsnPlBheWVy OjwvdGQ+BK38hx77P9Ag BktnFfr7ISBrEAE9xTN2 yE8tJOGrFOrvi9G0dYU0 K9QtluAfvm3xx6fg YXBz (more content not included)... Normal [facility] CT Lower Extremity w/o Contr ast [...] Morton DO Transcribed by: ANSHU Technologist: BASIM Normal [facility] ABO/Rh Retypeon 07-29-2022 ABO/Rh Retype Interp Negative Invalid Interpretation Code [facility] Comment on above: Performed By: #### 1 [id number] ####[place] [address] [place] [address] BLOOD BANKOrdered By: Courtney Del Toro on 07-29-2022 ABO/Rh Retype Interp Negative Invalid Interpretation Code [facility] BB Subsection BUNon 07-29-2022 Urea nitrogen [Mass/Vol] 10 mg/dL Normal 5-21 [facility] Comment on above: Performed By: #### 2 052388, 2742545, 3081391, 52648489, 9381521, 3326683 ####[facility] [address] [place] [address] CBC w/Indiceson 07-29-2022 Erythrocyte distribution width (RBC) [Ratio] 14.1 % Normal 10.9-14.2 [facility] Comment on above: Performed By: #### 2 693518, 2988881, 5734554, 14824273, 5080206, 3770206 ####[facility] [address] [place] [address] Hematocrit (Bld) [Volume fraction] 38.7 % Normal 34.0-46.0 [facility] Comment on above: Performed By: #### 2 041275, 9405040, 1382122, 16822972, 8006818, 5896897 ####[facility] [address] [place] [address] Hemoglobin (Bld) [Mass/Vol] 13.1 g/dL Normal 12.0-16.0 [facility] Comment on above: Performed By: #### 2 459686, 9039525, 3580844, 67209473, 6223632, 3189400 ####[facility] [address] [place] [address] MCH (RBC) [Entitic mass] 30.7 pg Normal 27.0-34.0 [facility] Comment on above: Performed By: #### 2 672901, 1734000, 7731514, 44768653, 9316500, 3174603 ####[facility] [address] [place] [address] MCHC (RBC) [Mass/Vol] 33.9 g/dL Normal 31.4-36.0 [facility] Comment on above: Performed By: #### 2 201726, 8190671, 8681559, 10433860, 4825743, 9017473 ####[facility] [address] [place] [address] MCV (RBC) [Entitic vol] 90.7 fL Normal 80.0-100.0 [facility] Comment on above: Performed By: #### 2 879753, 1262982, 0851926, 62430299, 1480159, 4765194 ####[address] [address] Platelet mean volume (Bld) [Entitic vol] 8.1 fL Normal 6.4-10.8 [facility] Comment on above: Performed By: #### 2 825924, 0296909, 4124034, 35633841, 5477169, 6154555 ####[place] [address] Platelets (Bld) [#/Vol] 258.0 E9/L Normal 150.0-500.0 [facility] Comment on above: Performed By: #### 2 041008, 7192694, 1606418, 02353722, 0343140, 0122708 ####[address] [address] RBC (Bld) [#/Vol] 4.3 E12/L Normal 4.3-5.9 [facility] Comment on above: Performed By: #### 2 951387, 3800588, 9007346, 48568898, 5643913, 5563439 ####[place] [address] [place] [address] WBC corrected for nucl RBC Auto (Bld) [#/Vol] 3.8 E9/L Low 4.0-11.0 [facility] Comment on above: Performed By: #### 2 944797, 3611648, 7002565, 91801392, 6452036, 6123302 ####[address] [address] CHEMISTRYOrdered By: Lashanda Villarreal on 07-29-2022 Anion gap [Moles/Vol] 11 mmol/L Normal 6 - 16 mEq/L [facility] Remisol Chloride [Moles/Vol] 101 mmol/L Normal 101 - 1 11 mmol/L [facility] Remisol CO2 [Moles/Vol] 28 mmol/L Normal 21 - 31 mmol/L [facility] Remisol Creatinine [Mass/Vol] 0.8 mg/dL Normal 0.5 - 1.3 mg/dL [facility] Remisol Glucose [Mass/Vol] 89 mg/dL Normal 55 - 199 mg/dL [facility] Remisol Potassium [Moles/Vol] 4.1 mmol/L Normal 3.5 - 5.3 mmol/L [facility] Remisol Sodium [Moles/Vol] 136 mmol/L Normal 135 - 145 mmol/L [facility] Remisol Urea nitrogen [Mass/Vol] 10 mg/dL Normal 5 - 21 mg/dL [facility] Remisol CHEMISTRYOrdered By: SYSTEM SYSTEM on 07-29-2022 GFR/1.73 sq M.predicted among blacks MDRD (S/P/Bld) [Vol rate/Area] mL/min/1.73 m2 Normal >=59mL/min/1. 73 m2 [facility] Chem S GFR/1.73 sq M.predicted among non-blacks MDRD (S/P/Bld) [Vol rate/Area] mL/min/1.73 m2 Normal >=59mL/min/1. 73 m2 [facility] Chem S Consent for Treatmenton Consent for Treatment [id number] #1.00CD:127 Normal [facility] Creatinineon 07-29-2022 Creatinine [Mass/Vol] 0.8 mg/dL Normal 0.5-1.3 [facility] Comment on above: Performed By: #### 2 542364, 0493708, 2629882, 93071138, 9210221, 5364594 ####[facility] [address] [place] [address] Glucoseon 07-29-2022 Glucose [Mass/Vol] 89 mg/dL Normal 55-199 [facility] Comment on above: Performed By: #### 2 202601, 4089927, 2446935, 70977199, 3590514, 6766893 ####[facility] [address] [place] [address] HEMATOLOGYOrdered By: Courtney Del Toro on 07-29-2022 Erythrocyte distribution width (RBC) [Ratio] 14.1 % Normal 10.9 - 14.2 % [facility] Hematocrit (Bld) [Volume fraction] 38.7 % Normal 34.0 - 46.0 % [facility] Hemoglobin (Bld) [Mass/Vol] 13.1 g/dL Normal 12.0 - 16.0 gm/dL [facility] MCH (RBC) [Entitic mass] 30.7 pg Normal 27.0 - 34.0 pg [facility] MCHC (RBC) [Mass/Vol] 33.9 g/dL Normal 31.4 - 36.0 gm/dL [facility] MCV (RBC) [Entitic vol] 90.7 fL Normal 80.0 - 100.0 fL [facility] Platelet mean volume (Bld) [Entitic vol] 8.1 fL Normal 6.4 - 10.8 fL [facility] Platelets (Bld) [#/Vol] 258.0 E9/L Normal 150.0 - 500.0 E9/L [facility] RBC (Bld) [#/Vol] 4.3 E12/L Normal 4.3 - 5.9 E12/L [facility] WBC corrected for nucl RBC Auto (Bld) [#/Vol] 3.8 E9/L Low 4.0 - 11.0 E9/L [facility] Lyteson 07-29-2022 Anion gap [Moles/Vol] 11 mmol/L Normal 6-16 [facility] Comment on above: Performed By: #### 2 804972, 7069784, 9762631, 68484913, 4554458, 8734694 ####[facility] [address] [place] [address] Chloride [Moles/Vol] 101 mmol/L Normal 101-111 [facility] Comment on above: Performed By: #### 2 475569, 0736168, 9264336, 66844156, 1434169, 7216094 ####[facility] [address] [place] [address] CO2 [Moles/Vol] 28 mmol/L Normal 21-31 [facility] Comment on above: Performed By: #### 2 032751, 2275411, 0283989, 04219039, 3183835, 1703858 ####[facility] [address] [place] [address] Potassium [Moles/Vol] 4.1 mmol/L Normal 3.5-5.3 [facility] Comment on above: Performed By: #### 2 588989, 6321669, 0916016, 83461920, 0548554, 6586008 ####[address] [place] [place] [address] Sodium [Moles/Vol] 136 mmol/L Normal 135-145 [facility] Comment on above: Performed By: #### 2 071628, 1022113, 0677503, 68639247, 4879646, 5301697 ####[address] [address] UA With Cult Reflexon 2022 Bilirubin Ql (U) Negative Normal Negative [facility] Comment on above: Performed By: #### 1 9370349 ####[address] [address] Clarity (U) CLEAR Normal Clear [facility] Comment on above: Performed By: #### 1 4103815 ####[address] [place] [address] Color (U) YELLOW Normal Yellow [facility] Comment on above: Performed By: #### 1 6983278 ####[address] [address] Epithelial cells.squamous LM.HPF (Urine sed) [#/Area] 0-2 Normal 0-2 [facility] Comment on above: Performed By: #### 1 7881306 ####[address] [address] Glucose Test strip (U) [Mass/Vol] Negative Normal Negative [facility] Comment on above: Performed By: #### 1 4870942 ####[address] [address] Hemoglobin Ql (U) Negative Normal Negative [facility] Comment on above: Performed By: #### 1 8687302 ####[address] [address] Ketones (U) [Mass/Vol] Negative Normal Negative [facility] Comment on above: Performed By: #### 1 2796593 ####[address] [address] [place].plasma/Lithiu m.RBC (Bld) [Mass ratio] 0-3 Normal 0-3 [facility] Comment on above: Performed By: #### 1 0671250 ####[address] [address] Nitrite Ql (U) Negative Normal Negative [facility] Comment on above: Performed By: #### 1 7122444 ####[address] [address] pH (U) 7.0 [pH] Invalid Interpretation Code 5.0-9.0 [facility] Comment on above: Performed By: #### 1 8975921 ####[address] [address] Protein (U) [Mass/Vol] Negative Normal Negative [facility] Comment on above: Performed By: #### 1 7219589 ####[address] [address] Specific gravity (U) [Rel density] 1.010 Invalid Interpretation Code 1.005-1.030 [facility] Comment on above: Performed By: #### 1 2102700 ####[address] [address] Type of Urine collection method Clean Catch Normal [facility] Comment on above: Performed By: #### 1 7801199 ####[facility] [address] [place] [address] Urobilinogen Qn (U) 0.2 {Damian'U}/dL Normal 0.0-1.0 [facility] Comment on above: Performed By: #### 1 6580238 ####[facility] [address] [place] [address] WBC Auto Ql (U) TRACE Abnormal Negative [facility] Comment on above: Performed By: #### 1 6943082 ####[facility] [address] [place] [address] WBC LM.HPF (Urine sed) [#/Area] 0-5 Normal 0-5 [facility] Comment on above: Performed By: #### 1 [id number] ####[facility] [address] [place] [address] URINALYSISOrdered By: An Fletcher on 07-29-2022 Bilirubin Ql (U) Negative (07/29/22 8:50 AM) Normal Negative [facility]A Auto SS Clarity (U) Clear (07/29/22 8:50 AM) Normal Clear [facility] UA Auto SS Color (U) Yellow (07/29/22 8:50 AM) Normal Yellow [facility] UA Auto SS Epithelial cells.squamous LM.HPF (Urine sed) [#/Area] 0-2 /HPF Normal 0-2/HPF [facility] UA Aut o SS Glucose Test strip (U) [Mass/Vol] Negative (07/29/22 8:50 AM) Normal Negative [facility] UA Auto SS Hemoglobin Ql (U) Negative (07/29/22 8:50 AM) Normal Negative [facility] UA Auto SS Ketones (U) [Mass/Vol] Negative (07/29/22 8:50 AM) Normal Negative [facility] UA Auto SS [place].plasma/Lithiu m.RBC (Bld) [Mass ratio] 0-3 /HPF Normal 0-3/HPF [facility] UA Auto SS Nitrite Ql (U) Negative (07/29/22 8:50 AM) Normal Negative [facility] UA Auto SS pH (U) 7.0 *NA* (07/29/22 8:50 AM) Invalid Interpretation Code 5.0 - 9.0 [facility] UA Auto SS Protein (U) [Mass/Vol] Negative (07/29/22 8:50 AM) Normal Negative [facility] UA Auto SS Specific gravity (U) [Rel density] 1.010 *NA* (07/29/22 8:50 AM) Invalid Interpretation Code 1.005 - 1.030 [facility] UA Auto SS UA Spec Desc Clean Catch (07/29/22 8:50 AM) Normal [facility] UA Auto SS Urobilinogen Qn (U) 0.2076736 {Damian'U}/dL Normal 0.0 - 1.0 EU/dL [facility] UA Auto SS WBC Auto Ql (U) Trace *ABN* (07/29/22 8:50 AM) Invalid Interpretation Code Negative [facility] UA Auto SS WBC LM.HPF (Urine sed) [#/Area] 0-5 /HPF Normal 0-5/HPF [facility] UA Auto SS XR Chest 2 Viewson [...] mGy = na DAP = na Normal [facility] eGFRon 07-29-2022 GFR/1.73 sq M.predicted among blacks MDRD (S/P/Bld) [Vol rate/Area] mL/min/{1.73_m2} Normal >=59 [facility] Comment on above: Order Comment: Order added by Discern Expert. Result Comment: eGFR is race adjusted. AA=. Performed By: #### 2 [id number] ####[facility] [address] [place] [address] GFR/1.73 sq M.predicted among non-blacks MDRD (S/P/Bld) [Vol rate/Area] mL/min/{1.73_m2} Normal >=59 [facility] Comment on above: Order Comment: Order added by Discern Expert. Result Comment: Examining Chair Assembler gene kidney disease could be indicated at eGFR's of less than 60 mL/min/1.73m2. Kidney failure is indicated at less than 15 mL/min/1.73m2. Performed By: #### 2 [id number] ####[facility] [address] [place] [address] Physician Orderon 07-22-2022 Physician Order [id number] 02#1.00CD:127 Normal [facility] Pre-Certification Formon Pre-Certification Form [id number] 87#1.00CD:127 [facility] Physician Orderon 07-16-2022 Physician Order [id number] #1.00CD:127 [facility] PAP ACOG PANEL 2: 30 to 65on 03-28-2022 . . Normal [facility] Comment on above: Result Comment: Perf ormed at: BA Performed By: #### 4 [id number] #### [facility] [address] [address] [address] Cali Ortiz Age Gdln ACOG Testing 30-[address] [facility] Comment on above: Performed By: #### 4 [id number] #### [facility] [address] [place], [place] [address] Dr. Cali Ortiz DIAGNOSIS: Comment [facility] Comment on above: Result Comment: NEGA TIVE FOR INTRAEPITHELIAL LESION OR MALIGNANCY. CELLULAR CHANGES ASSOCIATED WITH ATROPHY ARE PRESENT. Performed at: [facility] Performed By: #### 4 [id number] #### [facility] [address] [address] [address] Cali Ortiz HPV Aptima Negative Normal Negative [facility] Comment on above: Result Comment: This nucleic acid amplification test detects fourteen high-risk HPV types (16,18,31,33,35,39,45,51,52,56,58,59,66,68) without differentiation. Performed at: =G Performed By: #### 4 [id number] #### [facility] [address] [address] [address] Cali Ortiz HPV Genotype Reflex Comment Normal [facility] Comment on above: Result Comment: Crit eria not met, HPV Genotype not performed. Performed at: [facility] Performed By: #### 4 [id number] #### [facility] [address] [place] [address] Dr. Cali Ortiz Methodology: Comment Normal [facility] Comment on above: Result Comment: This liquid based ThinPrep(R) pap test was screened with the use of an image guided system. Performed at: WB Performed By: #### [id number] #### [facility] [address] [place] [address] Dr. Cali Ortiz Note: Comment Normal [facility] Comment on above: Result Comment: The Pap smear is a screening test designed to aid in the detection of premalignant and malignant conditions of the uterine cervix. It is not a diagnostic procedure and should not be used as the sole means of detecting cervical cancer. Both false-positive and false-negative reports do occur. . Performed at: WB Performed By: #### [id number] #### [facility] [address] [place] [address] Dr. Cali Ortiz Performed by: Comment Normal [facility] Comment on above: Result Comment: Aleyda Stone, Registered Nurse Cardiovascular Icu (ASCP) Performed at: BA Performed By: #### [id number] #### [facility] [address] [place] [address] Dr. Cali Ortiz Specimen adequacy: Comment Normal [facility] Comment on above: Result Comment: Sati sfactory for evaluation. Endocervical component may not be distinguished in cases of atrophy. Performed at: Performed By: #### [id number] #### [facility] [address] [place] [address] Dr. Cali Ortiz MG MAMM SCREEN 3D OCTAVIO CADon 02-15-2022 MG MAMM SCREEN 3D OCTAVIO CAD Patient: AMANDA FRAGOSO Exam Date: 02/15/2022 : 1965 Gender:F Ordering : DR EDUARDO HARRIS . Admission #: [id number] Family : Order #: [id number] CLICK HERE TO VIEW EXAM RADIOLOGY REPORT [...] Treatments None Family Cancers None LOCATION: [facility] BREAST COMPOSITION: Scattered areas fibroglandular density. [...] MD on 02/15/2022 at 11:03 Normal [facility] CBC AUTO DIFFon 08-19-2021 BASO # 0.1 103/ul Normal 0.0-0.1 [facility] Comment on above: Performed By: #### C BC #### [facility] [address] [place] [address] Dr. Cali Ortiz Basophils/100 WBC (Bld) 1.4 % Normal 0.2-2.0 [facility] Comment on above: Performed By: #### C BC #### [facility] [address] [place] [address] Dr. Cali Ortiz EO # 0.1 103/ul Normal 0.0-0.7 [facility] Comment on above: Performed By: #### C BC #### [facility] [address] [place] [address] Dr. Cali Ortiz Eosinophils/100 WBC (Bld) 3.1 % Normal 0.9-7.0 [facility] Comment on above: Performed By: #### C BC #### [facility] [address] [place] [address] Dr. Cali Ortiz Erythrocyte distribution width (RBC) [Ratio] 13.2 % Normal 11.0-15.0 [facility] Comment on above: Performed By: #### C BC #### [facility] [address] [place] [address] Dr. Cali Ortiz Hematocrit (Bld) [Volume fraction] 40.7 % Normal 36.0-48.0 [facility] Comment on above: Performed By: #### C BC #### [facility] [address] [place] [address] Dr. Cali Ortiz Hemoglobin (Bld) [Mass/Vol] 13.0 g/dL Normal 12.0-16.0 [facility] Comment on above: Performed By: #### C BC #### [facility] [address] [place] [address] Dr. Cali Ortiz IG # 0.01 10e3/ul Normal 0.00-0.03 [facility] Comment on above: Performed By: #### C BC #### [facility] [address] [place] [address] Dr. Cali Ortiz IG % 0.2 % Normal 0.0-0.5 [facility] Comment on above: Performed By: #### C BC #### [facility] [address] [place] [address] Dr. Cali Ortiz LYMPH # 1.4 103/ul Normal 1.2-3.8 [facility] Comment on above: Performed By: #### C BC #### [facility] [address] [place] [address] Dr. Cali Ortiz Lymphocytes/100 WBC (Bld) 31.9 % Normal 20.5-60.0 [facility] Comment on above: Performed By: #### C BC #### [facility] [address] [place] [address] Dr. Cali Ortiz MANUAL DIFF REQ NO Normal [facility] Comment on above: Performed By: #### C BC #### [facility] [address] [place] [address] Dr. Cali Ortiz MCH (RBC) [Entitic mass] 30.7 pg Normal 26.7-34.0 [facility] Comment on above: Performed By: #### C BC #### [facility] [address] [place] [address] Dr. Cali Ortiz MCHC (RBC) [Mass/Vol] 31.9 g/dL Normal 29.9-35.2 [facility] Comment on above: Performed By: #### C BC #### [facility] [address] [place] [address] Dr. Cali Ortiz MCV (RBC) [Entitic vol] 96.2 fL Normal 81.0-99.0 [facility] Comment on above: Performed By: #### C BC #### [facility] [address] [place] [address] Dr. Cali Ortiz MONO # 0.4 103/ul Normal 0.3-0.8 [facility] Comment on above: Performed By: #### C BC #### [facility] [address] [place] [address] Dr. Cali Ortiz Monocytes/100 WBC (Bld) 10.3 % Normal 1.7-12.0 [facility] Comment on above: Performed By: #### C BC #### [facility] [address] [place] [address] Dr. Cali Ortiz NEUT # 2.3 103/ul Normal 1.4-6.5 [facility] Comment on above: Performed By: #### C BC #### [facility] [address] [place] [address] Dr. Cali Ortiz Neutrophils/100 WBC (Bld) 53.1 % Normal 43.0-75.0 [facility] Comment on above: Performed By: #### C BC #### [facility] [address] [place] [address] Dr. Cali Ortiz Platelet mean volume (Bld) [Entitic vol] 9.8 fL Normal 9.5-13.5 [facility] Comment on above: Performed By: #### C BC #### [facility] [address] [address] [address] Cali Ortiz PLT 267 103/ul Normal 150-450 [facility] Comment on above: Performed By: #### C BC #### [facility] [address] [address] [address] Cali Ortiz RBC 4.23 106/ul Normal 4.20-5.40 [facility] Comment on above: Performed By: #### C BC #### [facility] [address] [place] [address] Dr. Cali Ortiz WBC 4.3 103/ul Normal 4.0-11.0 [facility] Comment on above: Performed By: #### C BC #### [facility] [address] [address] [address] Cali Ortiz GLYCOHEMOGLOBIN A1Con 2021 ADA RECOMMENDATION ADA THERAPEUTIC TARGET 6.0 - 7.0 ACTION SUGGESTED > 7.0 Normal [facility] Comment on above: Performed By: #### A 1C #### [facility] [address] [place] [address] Dr. Cali Ortiz Glucose [Mass/Vol] 105 mg/dL Normal [facility] Comment on above: Performed By: #### A 1C #### [facility] [address] [address] [address] Cali Ortiz HbA1c (Bld) [Mass fraction] 5.3 % Normal <=6.0 [facility] Comment on above: Performed By: #### A 1C #### [facility] [address] [place] [address] Dr. Cali Ortiz LIPID PROFILEon 08-19-2021 CHOL-HDL RATIO NORM SEE BELOW Normal [facility] Comment on above: Result Comment: 3.3 - 4.4 LOW RISK 4.4 - 7.1 AVERAGE RISK 7.1 - 11.0 MODERATE RISK >11.0 HIGH RISK Performed By: #### T SH, BMP, LIPID, LIVER #### [facility] [address] [address] [address] Cali Ortiz Cholesterol [Mass/Vol] 216 mg/dL Critically high <=200 [facility] Comment on above: Performed By: #### T SH, BMP, LIPID, LIVER #### [facility] [address] [address] [address] Cali Ortiz Cholesterol in HDL [Mass/Vol] 84 mg/dL Critically high 40-60 [facility] Comment on above: Performed By: #### T SH, BMP, LIPID, LIVER #### [facility] [address] [address] [address] Cali Ortiz Cholesterol in LDL [Mass/Vol] 112.2 mg/dL Normal [facility] Comment on above: Performed By: #### T SH, BMP, LIPID, LIVER #### [facility] [address] [address] [address] Cali Ortiz Cholesterol.total/Cho lesterol in HDL [Mass ratio] 2.6 {ratio} Normal [facility] Comment on above: Performed By: #### T SH, BMP, LIPID, LIVER #### [facility] [address] [address] [address] Cali Ortiz HDL NORMAL > or = 60 mg/dl - LOW CARDIOVASCULAR RISK <40 mg/dl - HIGH CARDIOVASCULAR RISK Normal [facility] Comment on above: Performed By: #### T SH, BMP, LIPID, LIVER #### [facility] [address] [address] [address] Cali Ortiz LDL CALC NORMAL SEE BELOW Normal [facility] Comment on above: Result Comment: <100 mg/dl OPTIMAL 100 - 129 mg/dl NEAR OR ABOVE OPTIMAL 130 - 159 mg/dl BORDERLINE HIGH 160 - 189 mg/dl HIGH >190 mg/dl VERY HIGH Performed By: #### T SH, BMP, LIPID, LIVER #### [facility] [address] [address] [address] Cali Ortiz Triglyceride [Mass/Vol] 99 mg/dL Normal <=150 [facility] Comment on above: Performed By: #### T SH, BMP, LIPID, LIVER #### [facility] [address] [place] [address] Dr. Cali Ortiz VLDL CALC 19.8 mg/dL Normal [facility] Comment on above: Performed By: #### T SH, BMP, LIPID, LIVER #### [facility] [address] [address] [address] Cali Ortiz LIVER PROFILEon 08-19-2021 Albumin [Mass/Vol] 4.1 g/dL Normal 3.4-5.0 [facility] Comment on above: Performed By: #### T SH, BMP, LIPID, LIVER #### [facility] [address] [place] [address] Dr. Cali Ortiz Albumin/Globulin [Mass ratio] 1.2 {ratio} Normal [facility] Comment on above: Performed By: #### T SH, BMP, LIPID, LIVER #### [facility] [address] [place] [address] Dr. Cali Ortiz ALP [Catalytic activity/Vol] 81 U/L Normal 46-116 [facility] Comment on above: Performed By: #### T SH, BMP, LIPID, LIVER #### [facility] [address] [place] [address] Dr. Cali Ortiz ALT [Catalytic activity/Vol] 15 U/L Normal 14-59 [facility] Comment on above: Performed By: #### T SH, BMP, LIPID, LIVER #### [facility] [address] [place] [address] Dr. Cali Ortiz AST [Catalytic activity/Vol] 15 U/L Normal 15-37 [facility] Comment on above: Performed By: #### T SH, BMP, LIPID, LIVER #### [facility] [address] [place] [address] Dr. Cali Ortiz BILI, CONJUGATED 0.1 mg/dL Normal 0.0-0.3 [facility] Comment on above: Performed By: #### T SH, BMP, LIPID, LIVER #### [facility] [address] [place] [address] Dr. Cali Ortiz Bilirubin [Mass/Vol] 0.4 mg/dL Normal 0.2-1.3 [facility] Comment on above: Performed By: #### T SH, BMP, LIPID, LIVER #### [facility] [address] [place] [address] Dr. Cali Ortiz Globulin (S) [Mass/Vol] 3.4 g/dL Normal [facility] Comment on above: Performed By: #### T SH, BMP, LIPID, LIVER #### [facility] [address] [place] [address] Dr. Cali Ortiz Protein [Mass/Vol] 7.5 g/dL Normal 6.1-8.2 [facility] Comment on above: Performed By: #### T SH, BMP, LIPID, LIVER #### [facility] [address] [place] [address] Dr. Cali Ortiz PROF CHEM 8 (BAS METB)on Anion gap [Moles/Vol] 9.7 mmol/L Normal [facility] Comment on above: Performed By: #### T SH, BMP, LIPID, LIVER #### [facility] [address] [place] [address] Dr. Cali Ortiz Calcium [Mass/Vol] 9.1 mg/dL Normal 8.5-10.1 [facility] Comment on above: Performed By: #### T SH, BMP, LIPID, LIVER #### [facility] [address] [place] [address] Dr. Cali Ortiz Chloride [Moles/Vol] 97 mmol/L Critically low 98-107 [facility] Comment on above: Performed By: #### T SH, BMP, LIPID, LIVER #### [facility] [address] [place] [address] Dr. Cali Ortiz CO2 [Moles/Vol] 30.0 mmol/L Normal 22.0-30.0 [facility] Comment on above: Performed By: #### T SH, BMP, LIPID, LIVER #### [facility] [address] [address] [address] Cali Ortiz Creatinine [Mass/Vol] 0.72 mg/dL Normal 0.52-1.04 [facility] Comment on above: Performed By: #### T SH, BMP, LIPID, LIVER #### [facility] [address] [address] [address] Cali Ortiz EGFR-AF COLOMBIAN >60 Normal >=60 [facility] Comment on above: Performed By: #### T SH, BMP, LIPID, LIVER #### [facility] [address] [address] [address] Cali Ortiz EGFR-NON AF COLOMBIAN >60 Normal >=60 [facility] Comment on above: Performed By: #### T SH, BMP, LIPID, LIVER #### [facility] [address] [address] [address] Cali Ortiz Glucose [Mass/Vol] 97 mg/dL Normal 74-106 [facility] Comment on above: Performed By: #### T SH, BMP, LIPID, LIVER #### [facility] [address] [address] [address] Cali Ortiz Potassium [Moles/Vol] 4.7 mmol/L Normal 3.4-5.0 [facility] Comment on above: Performed By: #### T SH, BMP, LIPID, LIVER #### [facility] [address] [address] [address] Cali Ortiz Sodium [Moles/Vol] 132 mmol/L Critically low 137-145 [facility] Comment on above: Performed By: #### T SH, BMP, LIPID, LIVER #### [facility] [address] [address] [address] Cali Ortiz Urea nitrogen [Mass/Vol] 7.0 mg/dL Normal 7.0-18.0 [facility] Comment on above: Performed By: #### T SH, BMP, LIPID, LIVER #### [facility] [address] [address] [address] Cali Ortiz Urea nitrogen/Creatinine [Mass ratio] 9.7 mg/mg Normal [facility] Comment on above: Performed By: #### T SH, BMP, LIPID, LIVER #### [facility] [address] [address] [address] Cali Ortiz TSHon 08-19-2021 TSH 1.895 uIU/mL Normal 0.470-4.680 [facility] Comment on above: Performed By: #### T SH, BMP, LIPID, LIVER #### [facility] [address] [address] [address] Cali Ortiz TSH RANGE SEE BELOW Normal [facility] Comment on above: Result Comment: <0.3 4 UIU/ml HYPERTHYROID 0.34-5.60 UIU/ml EUTHYROID >5.60 UIU/ml HYPOTHYROID Performed By: #### T SH, BMP, LIPID, LIVER #### [facility] [address] [address] [address] Cali Ortiz Vital Signs Date Time Vital Sign Value Performing Clinician Facility 01-29-2025 10:01-0400 Body mass index (BMI) [Ratio] 24.11 kg/m2 Rochelle Portillo ADVERTISING ASSOCIATE Work Phone: [facility] 01-29-2025 10:01-0400 Body temperature 97.3 [degF] Rochelle Portillo ADVERTISING ASSOCIATE Work Phone: [facility] 01-29-2025 10:01-0400 Body weight 59.78 kg Rochelle Portillo ADVERTISING ASSOCIATE Work Phone: [facility] 01-29-2025 10:01-0400 Diastolic blood pressure 76 mm[Hg] Rochelle Portillo ADVERTISING ASSOCIATE Work Phone: [facility] 01-29-2025 10:01-0400 Heart rate 70 /min Rochelle Portillo ADVERTISING ASSOCIATE Work Phone: [facility] 01-29-2025 10:01-0400 SaO2% (BldA) [Mass fraction] 97 % Rochelle Portillo ADVERTISING ASSOCIATE Work Phone: [facility] 01-29-2025 10:01-0400 Systolic blood pressure 124 mm[Hg] Rochelle Portillo ADVERTISING ASSOCIATE Work Phone: [facility] 11-07-2024 08:04-0400 Body height 157.5 cm Eduardo Harris MD Work Phone: [facility] 11-07-2024 08:04-0400 Body mass index (BMI) [Ratio] 23.78 kg/m2 Eduardo Harris MD Work Phone: [facility] 11-07-2024 08:04-0400 Body temperature 97.5 [degF] Eduardo Harris MD Work Phone: [facility] 11-07-2024 08:04-0400 Body weight 58.97 kg Eduardo Harris MD Work Phone: [facility] 11-07-2024 08:04-0400 Diastolic blood pressure 60 mm[Hg] Eduardo Harris MD Work Phone: [facility] 11-07-2024 08:04-0400 Heart rate 73 /min Eduardo Harris MD Work Phone: [facility] 11-07-2024 08:04-0400 Respiratory rate 22 /min Eduardo Harris MD Work Phone: [facility] 11-07-2024 08:04-0400 SaO2% (BldA) [Mass fraction] 99 % Eduardo Harris MD Work Phone: [facility] 11-07-2024 08:04-0400 Systolic blood pressure 104 mm[Hg] Eduardo Harris MD Work Phone: [facility] 08-23-2024 09:52-0400 Body height 157.5 cm Lore Pocos DO Work Phone: [facility] 08-23-2024 09:52-0400 Body mass index (BMI) [Ratio] 23.41 kg/m2 Lore Pocos DO Work Phone: [facility] 08-23-2024 09:52-0400 Body weight 58.06 kg Lore Pocos DO Work Phone: [facility] 08-17-2022 15:28-0400 Diastolic blood pressure 68 mm[Hg] Lore Pocos [facility] 08-17-2022 15:28-0400 Heart rate 78 /min Lore Pocos [facility] 08-17-2022 15:28-0400 SaO2% (BldA) [Mass fraction] 99 % Lore Pocos [facility] 08-17-2022 15:28-0400 Systolic blood pressure 100 mm[Hg] Lore Pocos [facility] 08-17-2022 14:22-0400 Heart rate 75 /min Lore Pocos [facility] 08-17-2022 14:22-0400 SaO2% (BldA) [Mass fraction] 98 % Lore Pocos [facility] 08-17-2022 14:21-0400 Diastolic blood pressure 70 mm[Hg] Lore Pocos [facility] 08-17-2022 14:21-0400 Mean blood pressure 81 mm[Hg] Lore Pocos [facility] 08-17-2022 14:21-0400 Systolic blood pressure 102 mm[Hg] Lore Pocos [facility] 08-17-2022 13:55-0400 Blood Pressure Location Lore Pocos [facility] 08-17-2022 13:55-0400 Diastolic blood pressure 71 mm[Hg] Lore Pocos [facility] 08-17-2022 13:55-0400 Heart rate 70 /min Lore Pocos [facility] 08-17-2022 13:55-0400 Mean blood pressure 81 mm[Hg] Lore Pocos [facility] 08-17-2022 13:55-0400 SaO2% (BldA) [Mass fraction] 99 % Lore Pocos [facility] 08-17-2022 13:55-0400 Systolic blood pressure 100 mm[Hg] Lore Pocos [facility] 08-17-2022 12:11-0400 Respiratory rate 16 /min Lore Pocos [facility] 08-17-2022 12:09-0400 Mean blood pressure 71 mm[Hg] Lore Pocos [facility] 08-17-2022 12:09-0400 Body temperature 96.8 [degF] Lore Pocos [facility] 08-17-2022 12:05-0400 Body temperature 97.7 [degF] Lore Pocos [facility] 08-17-2022 12:05-0400 Mean blood pressure 68 mm[Hg] Lore Pocos [facility] 08-17-2022 12:05-0400 Respiratory rate 22 /min Lore Pocos [facility] 08-17-2022 11:55-0400 Mean blood pressure 78 mm[Hg] Lore Pocos [facility] 08-17-2022 11:55-0400 Respiratory rate 14 /min Lore Pocos [facility] 08-17-2022 11:40-0400 Respiratory rate 18 /min Lore Pocos [facility] 08-17-2022 11:24-0400 Body temperature 97.52 [degF] Lore Pocos [facility] 08-17-2022 06:10-0400 Heart rate 60 /min Lore Pocos [facility] 08-17-2022 06:07-0400 Mean blood pressure 98 mm[Hg] Lore Pocos [facility] 08-17-2022 06:07-0400 Respiratory rate 18 /min Lore Pocos [facility] 08-17-2022 06:07-0400 Body temperature 98.6 [degF] Lore Pocos [facility] 07-29-2022 08:27-0500 Blood Pressure Location Lore Pocos [facility] 07-29-2022 08:27-0500 Diastolic blood pressure 89 mm[Hg] Lore Pocos [facility] 07-29-2022 08:27-0500 Systolic blood pressure 125 mm[Hg] Lore Pocos [facility] 07-29-2022 08:26-0500 Blood Pressure Location Lore Pocos [facility] 07-29-2022 08:26-0500 Body temperature 97.52 [degF] Lore Pocos [facility] 07-29-2022 08:26-0500 Diastolic blood pressure 86 mm[Hg] Lore Pocos [facility] 07-29-2022 08:26-0500 Heart rate 73 /min Lore Pocos [facility] 07-29-2022 08:26-0500 Mean blood pressure 98 mm[Hg] Lore Pocos [facility] 07-29-2022 08:26-0500 Respiratory rate 18 /min Lore Pocos [facility] 07-29-2022 08:26-0500 SaO2% (BldA) [Mass fraction] 100 % Lore Pocos [facility] 07-29-2022 08:26-0500 Systolic blood pressure 121 mm[Hg] Lore Pocos [facility] Encounters Encounter Date Encounter Type Care Provider Facility Start: 01-29-2025 End: 01-29-2025 Bamboo flowsheet Rochelle Portillo ADVERTISING ASSOCIATE Work Phone: [facility] Start: 01-29-2025 End: 01-29-2025 Bamboo flowsheet Rochelle Portillo ADVERTISING ASSOCIATE Work Phone: [facility] Start: 01-29-2025 End: 01-29-2025 Office outpatient new 45 minutes Rochelle Portillo ADVERTISING ASSOCIATE Work Phone: [facility] Comment on above: Encounter to [facility] with new provider (Primary Dx) Start: 01-29-2025 End: 01-29-2025 ambulatory ROCHELLE PORTILLO Not Available Start: 11-07-2024 End: 11-07-2024 Patient encounter procedure Eduardo Harris MD Work Phone: [facility] Work Phone: Start: 11-07-2024 End: 11-07-2024 Periodic preventive med est patient 40-64yrs Eduardo Harris MD Work Phone: [facility] Comment on above: Annual physical exam (Primary Dx); Colon cancer screening Start: 11-07-2024 End: 11-07-2024 ambulatory EDUARDO HARRIS Not Available Start: 08-23-2024 End: 08-23-2024 Patient encounter procedure Deric Pocos DO Work Phone: [facility] Comment on above: Presence of artifici al hip joint, right (Primary Dx); Strain of hip flexor, right, initial encounter Start: 08-23-2024 End: 08-23-2024 ambulatory DERIC POCOS Not Available Start: 08-23-2024 End: 08-23-2024 ambulatory DERIC POCOS Not Available Start: 08-14-2024 End: 08-17-2024 Clinisync Result Encounter Maryanne DAUGHERTY Work Phone: [facility] External Department Unsolicited Start: 08-14-2024 End: 08-17-2024 Clinisync Result Encounter Maryanne DAUGHERTY Work Phone: [facility] External Department Unsolicited Start: 08-14-2024 End: 08-14-2024 ambulatory MARYANNE ADAMS Not Available Start: 11-14-2023 Patient encounter procedure Maryanne DAUGHERTY Work Phone: [facility] Start: 08-17-2022 End: 08-17-2022 ambulatory Lore Hebert [place] Start: 08-17-2022 End: 08-17-2022 Admission to same day surgery center Lore Hebert [facility] Start: 07-29-2022 End: 07-30-2022 ambulatory Lore Hebert Facility:[facility] Start: 07-29-2022 ambulatory Facility:[id number] Start: 07-29-2022 End: 07-29-2022 Patient encounter procedure Lore Hebert [facility] Start: 06-28-2022 End: 06-29-[address] EUDARDO HARRIS Facility:[facility] Start: 03-22-2022 End: 03-22-[address] VIVEK GIPSON Facility:[facility] Start: 02-15-2022 End: 02-16-[address] EDUARDO HARRIS Facility:[facility] Start: 08-21-2021 Encounter for genera l adult medical examination without abnormal findings DR EDUARDO HARRIS [facility] Start: 08-19-2021 End: 08-20-[address] EDUARDO HARRIS Facility:[facility] Start: 08-19-2021 End: 08-20-2021 Encounter for general adult medical examination without abnormal findings DR EDUARDO HARRIS Facility:[facility] Procedures Date Procedure Procedure Detail Performing Clinician Start: 08-23-2024 Radex hip unilateral with pelvis 2-3 views Lore Hebert DO Work Phone: Start: 08-14-2024 IGP,APTIMA HPV,AGE GDLN Generic External Data Provider Start: 08-14-2024 Microscopic observat ion [Identifier] in Cervix by Cyto stain Lore Stilesos DO Work Phone: Start: 02-23-2024 Mammography Maryanne DAUGHERTY Work Phone: Start: 08-17-2022 Repair of hip Lore Poc os section Lore Stilesos Operation on placenta Lore Pocos Plan of Treatment Date Care Activity Detail Author Start: 08-14-2029 Screening for malign ant neoplasm of cervix [facility] Start: 11-13-2027 Screening for malign ant neoplasm of colon [facility] Start: 11-11-2025 End: 11-11-2025 Patient encounter procedure 11/11/2025 8:00 AM EDT Office Visit [facility] [address] [place] [address] Eduardo Harris MD [address] [place] [address] [facility] Start: 11-08-2025 End: 11-08-2025 Patient encounter procedure 11/08/2025 10:30 AM EDT Office Visit [facility] [address] [place] [phone] Rochelle Portillo NP [address] [place] [address] [facility] Start: 09-04-2025 End: 09-04-2025 Patient encounter procedure 09/04/2025 10:00 AM EDT Procedure Visit [facility] [address] [place] [phone] Maryanne Adams PA [address] [place] [address] [facility] Start: 08-19-2025 End: 08-19-2025 Patient encounter procedure 08/19/2025 10:00 AM EDT Office Visit [facility] [address] [place] [phone] Maryanne Adams PA [address] [place] [address] [facility] Start: 02-22-2025 Screening for malign ant neoplasm of breast Mammogram [facility] Start: 01-29-2025 End: 01-29-2025 Patient encounter procedure 01/29/2025 10:00 AM EDT Office Visit [facility] [address] [place] [phone] Rochelle Portillo NP [address] [place] [address] Arrived [facility] Comment on above: Arrived Start: 01-21-2025 Influenza vaccination [facility] Start: 11-07-2024 End: 11-07-2025 Basic metabolic 1998 panel - Serum or Plasma Basic metabolic panel Lab Routine Annual physical exam Expected: 11/07/2024 (Approximate), Expires: 11/07/2025 [facility] Comment on above: Expected: 11/07/2024 (Approximate), Expires: 11/07/2025 Start: 11-07-2024 End: 11-07-2025 CBC W Auto Differential panel - Blood CBC and differential Lab Routine Annual physical exam Expected: 11/07/2024 (Approximate), Expires: 11/07/2025 [facility] Comment on above: Expected: 11/07/2024 (Approximate), Expires: 11/07/2025 Start: 11-07-2024 End: 11-07-2025 Hemoglobin A1c/Hemoglobin.total in Blood Hemoglobin A1c Lab Routine Annual physical exam Expected: 11/07/2024 (Approximate), Expires: 11/07/2025 [facility] Work Phone: Comment on above: Expected: 11/07/2024 (Approximate), Expires: 11/07/2025 Start: 11-07-2024 End: 11-07-2025 Hepatic function 2000 panel - Serum or Plasma Hepatic function panel Lab Routine Annual physical exam Expected: 11/07/2024 (Approximate), Expires: 11/07/2025 [facility] Comment on above: Expected: 11/07/2024 (Approximate), Expires: 11/07/2025 Start: 11-07-2024 End: 11-07-2025 Lipid 1996 panel - Serum or Plasma Lipid panel Lab Routine Annual physical exam Expected: 11/07/2024 (Approximate), Expires: 11/07/2025 [facility] Comment on above: Expected: 11/07/2024 (Approximate), Expires: 11/07/2025 Start: 11-07-2024 End: 11-07-2025 Noninvasive colorectal cancer DNA and occult blood screening [Presence] in Stool Cologuard colon cancer screening Lab Routine Colon cancer screening Expected: 11/07/2024 (Approximate), Expires: 11/07/2025 [facility] Comment on above: Expected: 11/07/2024 (Approximate), Expires: 11/07/2025 Start: 11-07-2024 End: 11-07-2025 Thyrotropin [Units/volume] in Serum or Plasma TSH Lab Routine Annual physical exam Expected: 11/07/2024 (Approximate), Expires: 11/07/2025 [facility] Comment on above: Expected: 11/07/2024 (Approximate), Expires: 11/07/2025 Start: 11-07-2024 End: 11-07-2024 Patient encounter procedure 11/07/2024 8:00 AM EDT Office Visit [facility] [address] [place] [phone] Eduardo Harris MD [address] [place] [address] [facility] Start: 08-27-2024 Screening for malign ant neoplasm of colon [facility] Start: 08-23-2024 End: 08-23-2024 Patient encounter procedure 08/23/2024 10:00 AM EDT [facility] [address] [place] [address] Lore Hebert, DO [address] [place] [address] [facility] Start: 2024 Influenza vaccination Influenza Vacc ine (#1) [facility] Start: 01-21-1994 Screening for malign ant neoplasm of cervix [facility] Start: 01-21-1985 Screening for malign ant neoplasm of cervix Pap Smear [facility] Start: 1964 Screening for malign ant neoplasm of colon [facility] Payers Date Payer Category Payer Private Health Insurance [employer] [id number] 2024 Unknown [id number] 2022 Unknown [id number] 2022 Unknown [id number] 1964 Unknown [id number]. 2.59 1964 Unknown [id number]. 2.59 1964 Unknown [id number] .[id number]. 2.593 1964 Unknown [id number] .[id number]. 2.593 1964 Unknown [id number] .[id number]. 2.727 1964 Unknown [id number] 2.840.1.810951.3.579. 2.727 1964 Unknown [id number] [id number]. 2.356 1964 Unknown [id number] 2.16.840.1.401681.3.579. 2.9 1964 Unknown [id number] [id number]. 2.9 1964 Unknown [id number] 2.16.840.1.911255.3.579. 2.9 1964 Unknown [id number] 2.16.840.1.872104.3.579. 2.9 1964 Unknown [id number] [id number]. 2.1259 Social History Date Type Detail Facility Tobacco smoking status [facility] Start: 11-08-2023 End: 01-29-2025 Sex Assigned At Female [facility] Start: 11-18-2022 Tobacco smoking stat [facility] Never smoked tobacco [facility] Start: 11-18-2022 Tobacco use and exposure Smokeless tobacco non-user [facility] Start: 08-14-2024 End: 01-29-2025 Alcoholic beverage intake Current drinker of alcohol (finding) [facility] Start: 11-08-2023 End: 01-29-2025 History of Social function [facility] How often do you nee d to have someone help you when you read instructions, pamphlets, or other written material from your doctor or pharmacy [SILS] Never [facility] Are you now , , , , never or living with a partner? [facility] How often to you hav e a drink containing alcohol? Monthly or less [facility] How many standard drinks containing alcohol do you have on a typical day? 1 or 2 [facility] How often do you hav e 6 or more drinks on 1 occasion? Never [facility] Do you feel stress - tense, restless, nervous, or anxious, or unable to sleep at night because your mind is troubled all the time - these days [OSQ] Not at all [facility] (I/We) worried wheth er (my/our) food would run out before (I/we) got money to buy more. Never true [facility] In the past 12 month s, was there a time when you were not able to pay the mortgage or rent on time? No [facility] Start: 08-19-2023 End: 01-29-2025 Alcohol Comment Not often [facility] Start: 1965 Sex assigned at Female [facility] Start: 11-11-2022 Gender identity Identifies as female gender (finding) [facility] Medical Equipment Procedure Code Equipment Code Equipment Origin al Text Equipment Identifier Dates HIP TOTAL ANTERI OR ROBOT ARTHROPLASTY Pocos DO, Lore Oconnell 08/17/22 Unknown Hip R FDA Start: 08-17-2022 HIP TOTAL ANTERI OR ROBOT ARTHROPLASTY Pocos DO, Lore Oconnell 08/17/22 Unknown Hip R FDA Start: 08-17-2022 HIP TOTAL ANTERI OR ROBOT ARTHROPLASTY Pocos DO, Lore Oconnell 08/17/22 Unknown Hip R FDA Start: 08-17-2022 HIP TOTAL ANTERI OR ROBOT ARTHROPLASTY Pocos DO, Lore Oconnell 08/17/22 Unknown Hip R FDA Start: 08-17-2022 HIP TOTAL ANTERI OR ROBOT ARTHROPLASTY Pocos DO, Lore Oconnell 08/17/22 Unknown Hip R FDA Start: 08-17-2022 HIP TOTAL ANTERI OR ROBOT ARTHROPLASTY Pocos DO, Lore Oconnell 08/17/22 Unknown Hip R FDA Start: 08-17-2022 Functional Status Date Assessment Result Facility 07-29-2022 Functional Status No [facility] Clinical Notes 06-28-2022 to 01-29-2025 Rochelle Portillo NP - 01/29/2025 10:00 AM Sydnee Harris MD - 11/07/2024 8:46 AM Sydnee Harris MD - 11/07/2024 8:00 AM Juliet Cardenas - 08/23/2024 10:00 AM EDT Note Date & Type Note Facility 01-29-2025 History of Present illness Narrative Images from the original note were not included. Subjective ?Quick Links Last Note in Specialty Snapshot Edit RFV/CC Edit Screenings Current Meds Patient ID: Amanda Fragoso is a 60 y.o. female who presents for Establish Care. HPI History of Present Illness The patient is a female who presents to [facility]. She underwent a wellness check in 10/2024, during which she completed a Cologuard test. The results were normal. She has been on carvedilol for nearly 20 years due to arrhythmia, which has been beneficial. She reports no recent chest pain, shortness of breath, or abdominal pain. She takes Claritin as needed, particularly during this time of year, for postnasal drip. She also uses saline nasal spray and has used Flonase in the past, but not recently. She had a hip replacement and is prescribed antibiotics by her orthopedic doctor before dental cleanings. She has taken these antibiotics twice without issue, but the third time she felt lightheaded after taking the antibiotics. She is wondering if it is still necessary to take the antibiotics before dental cleanings and procedures. Diet: Vegetarian PAST SURGICAL HISTORY: Hip replacement on 07/25/2022 ?Quick Review Review Full History Meds - carvedilol (Coreg) 3.125 MG tablet loratadine (Claritin) 10 MG tablet Multiple Vitamin (Multivitamin Adult) tablet --- PMH - Arrhythmia Arthritis At low risk for fall History of Menopause Nonsmoker Overweight (BMI 25.0-29.9) Palpitations Seborrheic keratosis Objective ?Quick Links Add Vitals Timeline (Adult) Labs Imaging Results Review Trend Vitals ?? Avoid pulling in long tables of results. Comment on relevant results to support your medical decision making. BP 124/76 Pulse 70 Temp 97.3 F Wt 131 lb 12.8 oz SpO2 97% BMI 24.11 kg/m Physical Exam Vitals and nursing note reviewed. Constitutional: Appearance: Normal appearance. HENT: Head: Normocephalic and atraumatic. Nose: Nose normal. Mouth/Throat: Mouth: Mucous membranes are moist. Cardiovascular: Rate and Rhythm: Normal rate and regular rhythm. Pulses: Normal pulses. Heart sounds: Normal heart sounds. Pulmonary: Effort: Pulmonary effort is normal. No respiratory distress. Breath sounds: Normal breath sounds. No stridor. No wheezing, rhonchi or rales. Musculoskeletal: Right lower leg: No edema. Left lower leg: No edema. Skin: General: Skin is warm and dry. Neurological: General: No focal deficit present. Mental Status: She is alert and oriented to person, place, and time. Psychiatric: Mood and Affect: Mood normal. Behavior: Behavior normal. Physical Exam Respiratory: Clear to auscultation, no wheezing, rales or rhonchi Cardiovascular: Regular rate and rhythm, no murmurs, rubs, or gallops ?Quick Links Full Problem List Cardiology Hypertension Assessment & Plan Encounter to establish care with new provider Encounter today as a new patient today. General health maintenance reviewed visit. Oriented to the practice. Pt made aware of practice hours and how to reach a provider after hours by calling the office phone. Advised to call with any questions or concerns. Pt also made aware that we call with results of any testing, - or + results and to call if he has not heard from us. Also advised that if medication is sent to pharmacy allow up to 3 days for prescription to be refilled. Assessment & Plan 1. Establishment of care: - Had a wellness exam completed by Dr. Harris in October 2024. - Had to switch providers due to insurance. 2. Arrhythmia: - She has been taking carvedilol for arrhythmia for nearly two decades without issues. 3. Postnasal drip: - She uses Claritin as needed, especially around this time of year. - She is advised to continue using saline nasal spray and consider using Flonase if symptoms worsen. 4. Hip replacement: - She experienced lightheadedness after taking antibiotics prescribed by her orthopedic doctor before dental cleanings. - She is advised to consult with her orthopedic doctor regarding the necessity of these antibiotics and whether the dosage can be adjusted. - She is advised to take antibiotics with food to minimize gastrointestinal side effects. Follow-up: The patient will follow up in 10/2025 for a wellness visit. documented in this encounter [facility] 11-07-2024 History of Present illness Narrative Associated Problem(s): Annual physical exam Due for labs and cologuard. Discussed proper diet and regular aerobic exercise. Need aerobic exercise 5-6 days a week for 30 minutes at a time. Smaller portions and limit total calories. Tetanus every 10 years. Advised not to smoke. Images from the original note were not included. Subjective Patient ID: Amanda Fragoso is a 59 y.o. female who presents for Annual Exam (wellness). Presents for annual PE. Patient feels well today. Weight down 10 pounds in the past year. Tries to stay active and will walk or ride bike. Tries to watch diet and eat healthy. Increased fruits and vegetables. Smaller portions and limits snacking. Tries to limit total daily calories. Due for labs. Review of Systems Respiratory: Negative for cough, shortness of breath and wheezing. Cardiovascular: Negative for chest pain and palpitations. Gastrointestinal: Negative for abdominal pain, diarrhea, nausea and vomiting. Genitourinary: Negative for dysuria. Objective Physical Exam Constitutional: General: She is not in acute distress. Appearance: Normal appearance. HENT: Head: Normocephalic. Right Ear: Tympanic membrane normal. Left Ear: Tympanic membrane normal. Eyes: Extraocular Movements: Extraocular movements intact. Pupils: Pupils are equal, round, and reactive to light. Cardiovascular: Rate and Rhythm: Normal rate and regular rhythm. Heart sounds: No murmur heard. No friction rub. No gallop. Pulmonary: Effort: Pulmonary effort is normal. Breath sounds: Normal breath sounds. No wheezing, rhonchi or rales. Abdominal: General: Bowel sounds are normal. There is no distension. Palpations: Abdomen is soft. Tenderness: There is no abdominal tenderness. There is no guarding or rebound. Musculoskeletal: General: No swelling or tenderness. Cervical back: Neck supple. Right lower leg: No edema. Left lower leg: No edema. Skin: Findings: No erythema or rash. Neurological: General: No focal deficit present. Mental Status: She is alert and oriented to person, place, and time. Cranial Nerves: No cranial nerve deficit. Motor: No weakness. Gait: Gait normal. Assessment/Plan Problem List Items Addressed This Visit Annual physical exam - Primary Due for labs and cologuard. Discussed proper diet and regular aerobic exercise. Need aerobic exercise 5-6 days a week for 30 minutes at a time. Smaller portions and limit total calories. Tetanus every 10 years. Advised not to smoke. Relevant Orders Hemoglobin A1c Basic metabolic panel CBC and differential Hepatic function panel Lipid panel TSH Other Visit Diagnoses Colon cancer screening Relevant Orders Cologuard colon cancer screening documented in this encounter [facility] 08-23-2024 History of Present illness Narrative Images from the original note were not included. Amanda Fragoso is a 59 y.o. female presents with chief complaint follow up right robotic assist total hip arthroplasty 08-17-2022. HPI: Amanda returns here today for routine evaluation and check of her hip. She is doing fairly well. She reports no new or interval symptoms. She remains active. She is having some pain anteriorly, questions what that can be from. She has been doing a little bit of a kettle rock work out. She does question causative factor. SUBJECTIVE: MEDICATIONS: Current Outpatient Medications Medication Instructions carvedilol (COREG) 3.125 mg, Oral, 2 times daily cephalexin (Keflex) 500 MG capsule Take all 4 capsules one hour before the procedure. loratadine (Claritin) 10 MG tablet Every 24 hours Multiple Vitamin (Multivitamin Adult) tablet Every 24 hours ALLERGIES: Allergies Allergen Reactions Sulfamethoxazole-Trimethoprim Rash SURGICAL HISTORY: Past Surgical History: Procedure Laterality Date SECTION, LOW TRANSVERSE 04/17/1991 HIP ARTHROPLASTY Right 08/17/2022 DAP FAMILY HISTORY: Family History Problem Relation Name Age of Onset Cancer Father R.A.T. SOCIAL HISTORY: Social History Tobacco Use Smoking status: Never Smokeless tobacco: Never Vaping Use Vaping status: Never Used Substance Use Topics Alcohol use: Yes Comment: Not often Drug use: Never Depression: Not on file REVIEW OF SYMPTOMS: The review of systems, history and current medications list are all reviewed today. OBJECTIVE: Visit Vitals Ht 5' 2 Wt 128 lb BMI 23.41 kg/m OB Status Postmenopausal Smoking Status Never BSA 1.59 m Physical Exam Her orthopedic exam here today shows some atrophy centrally just off of the medial aspect of her wound, likely this is loss of muscle due to a femoral nerve muscular branch. Gentle arc of motion is without difficulty. She does have some tenderness anteriorly but more medial, almost up to the inguinal ligament. She does have pain with hip flexion, pain with resisted hip flexion. Her neurocirculatory status is overall grossly intact. The calf and thigh are supple. Examination of the left hip reveals arc of motion without difficulty. Similar arc overall. The calf and thigh are supple. X-ray AP pelvis, right hip total of three views with permanent images are saved to the record does show a well-fixed, well-aligned total hip arthroplasty on the left. No evidence of fracture, loosening or catastrophic wear. ASSESSMENT AND PLAN: Assessment/Plan Right total hip arthroplasty with hip flexor strain. The findings are discussed. We did urge her to define a cause and effect relationship as best she can. She is a very active individual. We did explain she may need to alter her level of activity or anything that does aggravate this. We certainly would recommend she get back to a routine home exercise program for total hip rehab. We did offer a refresher course with therapy at any point. We did discuss anti-inflammation. She states it is not overly that bad. She is counseled on the antibiotic prophylaxis and metal detectors. We will see her back in two years for routine check, sooner as needed. All of her questions are otherwise answered this day. She is discharged in stable condition. Cosigned by Lore Hebert DO at 08/26/2024 8:51 AM EDT documented in this encounter [facility] 08-17-2022 Note PT Evaluation comple chavo with an AMPAC score of 18/24. Pt was able to perform bed mobility with CGA and transfers with SBA. Pt was able to ambulate with FWW with CGA. Pt would be functionally safe to return home with caregiver assist and Ortho 360 to follow [facility] 08-17-2022 Hospital Discharge instructions Patient Education 08/17/2022 09:28:13 How to [...] as possible. If the spirometer includes a strength and conditioning coach indicator, use this to guide you [...] 09/19/2007 Document Revised: 06/01/2018 Document Reviewed: 03/22/2018 [employer] Patient Education 2020 [employer]. 08/17/2022 09:28:13 Post Op Patient Instructions - FT (CUSTOM) 08/10/2022 07:10:49 Pocos - Hip Replacement Arthroplasty, Revised 07/14/11. (Custom) [place], [place] [facility] DISCHARGE INSTRUCTIONS HIP REPLACEMENT [...] will continue at home, possible with the physiotherapy assistant of Home Health Physical Therapy or in the hospital as an outpatient. When you have become independent with the physical therapy program, this will then be discontinued as a supervised program and you will be instructed to continue the physical therapy exercises at home. DRIVING: Do NOT Drive FOLLOW-UP OFFICE VISIT: 4 weeks Postop Lore Hebert, DO [facility] [address] [place] [phone] Reviewed: 08-28 Revised: 06/03 Follow Up Care 07/15/2022 10:00:47 With:Lore Hebert Address: [address] [place] [id number] [facility] (1) When:09/17/2022 08:30:00 Comments:Call for any problems.Keep scheduled appointment [facility] 08-12-2022 Note [id number]:[id number] [facility] 06-28-2022 Note PROCEDURE: XR HIP RT 2 3V W PELVIS HISTORY: Pain in right hip joint , chronic COMPARISON: None. FINDINGS: BONES:Marked narrowing of right hip joint space with [id number] articulation and small subchondral cysts and sclerosis. Small periarticular degenerative osteophytes. No fracture, dislocation, or bone lesion. SOFT TISSUES:No visible soft tissue swelling. EFFUSION:None visible. OTHER: Negative. IMPRESSION: 1. Marked degenerative joint disease of right hip. Electronically authenticated by: ALEAH LONDON Date: 2022-06-28 10:24 [facility] Evaluation + Plan note Future Appointments Appointment Date:08/17/2022 09:00:00 AM Scheduled Provider: Location:[facility] Appointment Type:Surgery FT [facility] Evaluation note Diagnosis Annual physical exam- Primary Routine general medical examination at a health care facility Presence of artificial hip joint, right- Primary Strain of hip flexor, right, initial encounter [facility] Diagnosis Annual physical exam- Primary Routine general medical examination at a [facility] care facility Annual physical exam- Primary Routine general medical examination at a [facility] facility Colon cancer screening Special screening for malignant neoplasms, colon documented [facility] Diagnosis Annual physical exam- Primary Routine general medical examination at a [facility] facility Annual physical exam- Primary Routine general medical examination at a [facility] facility Colon cancer screening Special screening for malignant neoplasms, colon Encounter to establish care with new provider- Primary documented in this encounter [facility] Healthcare[facility]ospital course Narrative No data available for this section [facility] No data available for this section [facility] No data available for this section [facility] Summary Purpose Family History No Family History Records FoundNo Family History Records FoundNo Family History Records FoundNo Family History Records Found Advance Directives No Advanced Directives Records FoundNo Advanced Directives Records FoundNo Advanced Directives Records FoundNo Advanced Directives Records Found Additional Source Comments INFORMATION SOURCE (unrecogn ized section and content) DATE CREATED AUTHOR 07/01/2022 [facility] DATE CREATED AUTHOR AUTHOR'S ORGANIZ ATION 08/25/2022 [facility] DATE CREATED AUTHOR AUTHOR'S ORGANIZ ATION 09/02/2022 [facility] DATE CREATED AUTHOR AUTHOR'S ORGANIZ ATION 01/31/2025 [facility] EPIC Patient Care team informatio n (unrecognized section and content) String Winding Machine Operator Relationship Specialty Start Date End Date Naderer, Eduardo, MD [address] [place] [phone] PCP - General Family Medicine 11/18/22 String Winding Machine Operator Relationship Specialty Start Date End Date Eduardo Harris MD [address] [place] [phone] PCP - [facility] 11/18/22 String Winding Machine Operator Relationship Specialty Start Date End Date Eduardo Harris MD [address] [place] [phone] PCP - [facility] 11/18/22 String Winding Machine Operator Relationship Specialty Start Date End Date Migdalia Chua MD [address] [place] [address] PCP - [facility] 01/29/25 String Winding Machine Operator Relationship Specialty Start Date End Date Migdalia Chua MD [address] [place] [address] PCP - [facility] 01/29/25 Reason for Visit (unrecogniz ed section and content) Reason Comments Follow-up R DAA DIMITRI 3 Reason Comments Annual Exam wellness Reason Comments Establish Care FOR RECORDS PERTAINING TO PATIENTS WHO ARE [...] BE BASED ON THE PRIMARY CLINICAL RECORDS. [facility] [employer] [facility]. provides no warranty or guarantee of the accuracy or completeness of information in this document.
--- NOTE | 2025-02-25 09:25 | MM_ITS ---
Patient Name: AMANDA OAKES MR#: [id number] : 1965 Exam Date: 02/25/2025 Ordering Doctor: DAT ADAMS . RADIOLOGY REPORT PROCEDURE: MM TOMOSYNTHESIS SCREENING BI COMPARISON: MM TOMOSYNTHESIS SCREENING BI, 02/23/2024. MM TOMOSYNTHESIS SCREENING BI, 02/21/2023. MG MAMM SCREEN 3D OCTAVIO CAD, 02/15/2022. MG MAMM SCREEN OCTAVIO W CAD, 12/19/2010. INDICATIONS: Screening Calculator Name NCI Breast Cancer Risk Assessment Tool 5 Year Breast Cancer Risk 1.10% Lifetime Breast Cancer Risk 5.20% Personal Breast Cancer No Personal Ovarian Cancer No Treatments None Family Cancers None LOCATION: [facility] BREAST COMPOSITION: There are scattered areas of fibroglandular density. FINDINGS: DIAGNOSTIC CATEGORY 2--BENIGN FINDING. NO CHANGE FROM COMPARISON. RIGHT BREAST: No significant suspicious finding. Benign-appearing calcifications are present . LEFT BREAST: No significant suspicious finding. RECOMMENDATIONS: ROUTINE MAMMOGRAM AND CLINICAL EVALUATION IN 12 MONTHS. Dictated by: Jad Cardoza MD on 02/25/2025 at 17:16 Approved by: Jad Cardoza MD on 02/25/2025 at 17:18
== END 2025-02-25 09:08 | disposition home or self-care (01) ==
LOC: MAMMO 09:07
PROVIDERS: PCP Family Medicine; Visit Provider Physician Assistant
DX: Z12.31 Encounter for screening mammogram for malignant neoplasm of breast (principal)
CPT/HCPCS: 77063; 77067